=== PATIENT | female | born 2000 | race Hispanic/Latino ===

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

== ENCOUNTER 2022-12-09 21:23 | Emergency (ER) | payer OTHER, SELFPAY ==
--- OUTSIDE RECORDS SUMMARY | 2022-12-09 21:28 | XMS REPORT | Continuity of Care Document ---
:2000 Author Organization [facility] t Address [address] [facility] [address] [place] [address] Care Team Providers Name Role Phone STU CERVANTES Primary Care Physician Unavailable Bryant Naidu Attending Clinician Unavailable BARBARA ROSSI Attending Clinician Unavailable BARBARA ROSSI Attending Clinician Unavailable KATIE TINSLEY Attending Clinician Unavailable Katie Tinsley MD Attending Clinician Doctor Unassigned, [place] Attending Clinician Unavailable DIONICIO ANGEL Attending Clinician Unavailable Dionicio Funez Attending Clinician Rainer Rizo Attending Clinician Diane Bryant PA-C Attending Clinician DIANE BRYANT Attending Clinician Unavailable Bryant Naidu Admitting Clinician Unavailable Payers Payer Name Policy Type Policy Number Effective Date Expiration Date [facility] [id number] 2017 CHOICE MEDICAID 00:00:00 Problems Condition Condition Condition Status Onset Resolution Last Treating Co mments Source Name Details Category Date Date Treatment Clinician Date History of History of Disease Active U nivers heart heart 11-02 it[place] childhood childhood [facility] Maternal Maternal Disease Active Overview: Un natalia varicella, varicella, 11-02 Formattin ity of non-immune non-immune 00:00: g of this [place] 00 note Medical might be Branch different from the original. Address in Postpartu m Screening Screening Disease Active Uni vers for viral for viral 11-01 ity of disease disease 00:00: [place] [facility] Branch History of History of Disease Active U nivers anemia anemia 11-01 ity of 00:00: [place] 00 [facility] Primigravi Primigravi Disease Active U nivers da in da in 11-01 ity of first first 00:00: [place] trimester trimester 00 [facility] High risk High risk Disease Active Uni vers teen teen 11-01 [place] in first in first 00 Medica l trimester trimester Bran ch Supervisio Supervisio Disease Active U nivers n of high n of high 11-01 ity of risk risk 00:00: [place] 00 [facility] in first in first Branch trimester trimester Excessive Excessive Disease Active Uni vers menstruati menstruati 1-30 it y of on at on at 00:00: [place] puberty puberty 00 [facility] Depo-Prove Depo-Prove Disease Active U nivers ra ra 1-30 [place] of [place] cat[place] status caty status 00 Ok dical Branch History of History of Disease Active U nivers blood blood 1-30 [place] of transfusio transfus[place] [facility] Iron Iron Disease Active Univers deficiency deficiency 1-30 it y of anemia due [place] due [place] to chronic to chronic 00 Me dical blood loss blood loss Br anch Elevated Elevated Disease Active Unive rs hemoglobin hemoglobin 1-30 it y of A1c A1c 00:00: [place] 00 [facility] Branch Allergies, Adverse Reactions, Alerts Allergy Allergy Status Severity Reaction(s) Onset Inactive Treating Comm ents Source Name Type Date Date Clinician No Known DA Active U [facility] [place] No Known DA Active U [facility] Allergie 3-03 [facility] 00:00: [facility]osp[facility] 00 l [facility] NO KNOWN Drug Active Univers ALLERGIE Class ity of S [facility] Social History Social Habit Start Date Stop Date Quantity Comments Source ASSERTION 2019-09-10 University 00:00:00 [facility] Exposure to Not sure [facility] SARS-CoV-2 (event) [facility] Sexual orientation Univer sity of [facility] Alcohol intake 2022-11-26 2022-11-26 Current University 00:00:00 00:00:00 non-drinker of [facility] alcohol Branch (finding) History of Social 2019-11-02 2019-11-02 Univers ity of function 00:00:00 00:00:00 [facility] Tobacco use and 2017-03-31 2017-03-31 Smokeless Universit y of exposure 00:00:00 00:00:00 tobacco non-user [facility] Sex Assigned At 2000 2002 Universit y of 00:00:00 00:00:00 [facility] Smoking Status Start Date Stop Date Source Never smoked tobacco [facility] Medications Ordered Filled Start Stop Current Ordering Indication Dosage Frequency Signature Comments Components Source Medication Medication Date Date Medication? Clinician (SIG) Name Name meclizine No 25mg 25 mg, Unive rs (TRAVEL-EAS 11-27 Oral, ity of E 01:30: 01:39 ONCE, 1 [place] (MECLIZINE) 00 :00 dose, On [facility] ) tablet 25 Wed Branch mg 11/26/22 at 2030, KAILA meclizine Yes [id number] 25mg Take 1 U nivers 25 mg 9-27 tablet by ity of tablet 00:00: mouth [place] 00 every 6 Medical (six) Branch hours as needed for Dizziness or Nausea. proMETHazin Yes [id number] 25mg Take 1 Univers e 25 mg 9-27 tablet by ity of tablet 00:00: mouth [place] 00 every 6 Medical (six) Branch hours as needed for Nausea and Vomiting (N/V). ferrous Yes [id number] 325mg Take 1 Un nat[place] sulfate 325 9-10 tablet by ity of mg (65 mg 00:00: mouth 2 [place] iron) 00 (two) Medical tablet times Branch daily. ascorbic 2020-0 Yes [id number] 500mg Take 1 U nivers acid, 9-10 tablet by ity of vitamin C, 00:00: mouth 3 [place] 500 mg 00 (three) Medical tablet times Branch daily. ferrous 2020-0 Yes [id number] 325mg Take 1 Un [place] sulfate 325 9-10 tablet by ity of mg (65 mg 00:00: mouth 2 [place] iron) 00 (two) Medical tablet times Branch daily. ascorbic 2020-0 Yes [id number] 500mg Take 1 U nivers acid, 9-10 tablet by ity of vitamin C, 00:00: mouth 3 [place] 500 mg 00 (three) Medical tablet times Branch daily. ferrous 2020-0 Yes [id number] 325mg Take 1 Un [place] sulfate 325 9-10 tablet by ity of mg (65 mg 00:00: mouth 2 [place] iron) 00 (two) Medical tablet times Branch daily. ascorbic 2020-0 Yes [id number] 500mg Take 1 U nivers acid, 9-10 tablet by ity of vitamin C, 00:00: mouth 3 [place] 500 mg 00 (three) Medical tablet times Branch daily. ferrous 2020-0 Yes [id number] 325mg Take 1 Uni vers sulfate 325 9-10 tablet by ity of mg (65 mg 00:00: mouth 2 [place] iron) 00 (two) Medical tablet times Branch daily. ascorbic 2020-0 Yes [id number] 500mg Take 1 [place] acid, 9-10 tablet by ity of vitamin C, 00:00: mouth 3 [place] 500 mg 00 (three) Medical tablet times Branch daily. medroxyPROG 2020-0 2020- No 150mg 150 mg by [facility] 11-01 Intramuscu ity of (DEPO-PROVE 19:23: 00:00 lar route [place] RA) 150 33 :00 every 3 Medical mg/mL (three) Branch injection months. medroxyPROG 2020-0 2020- No 150mg 150 mg by [facility] 11-01 Intramuscu ity of (DEPO-PROVE 19:23: 00:00 lar route [place] RA) 150 33 :00 every 3 Medical mg/mL (three) Branch injection months. medroxyPROG 2020-0 2020- No 150mg 150 mg by [facility] 11-01 Intramuscu ity of (DEPO-PROVE 19:23: 00:00 lar route [place] RA) 150 33 :00 every 3 Medical mg/mL (three) Branch injection months. medroxyPROG 2020-0 2020- No 150mg 150 mg by [facility] Intr[facility] ity of (DEPO-PROVE 19:23: 00:00 lar route [place] RA) 150 33 :00 every 3 Medical mg/mL (three) Branch injection months. medroxyPROG 2020-0 2020- No 150mg 150 mg by [facility] Intramuscu ity of (DEPO-PROVE 19:23: 00:00 lar route [place] RA) 150 33 :00 every 3 Medical mg/mL (three) Branch injection months. medroxyPROG 2020-0 2020- No 150mg 150 mg by [facility] 11-01 Intramuscu ity of (DEPO-PROVE 19:23: 00:00 lar route [place] RA) 150 33 :00 every 3 Medical mg/mL (three) Branch injection months. medroxyPROG 2020-0 2020- No 150mg 150 mg by [facility] 11-01 Intramuscu ity of (DEPO-PROVE 19:23: 00:00 lar route [place] RA) 150 33 :00 every 3 Medical mg/mL (three) Branch injection months. ferrous 2020-0 2020- No 325mg Take 325 Univ ers sulfate 11-01 mg by ity of (IRON) 325 19:23: [...] No 325mg Take 325 Univ ers sulfate 9-02 09-02 mg by ity of (IRON) 325 [...] times Branch tablet daily with meals. Yes [id number] 1{packe Take 1 Univers vit 9-02 t} Packet by ity of 33-iron-fol 00:00: mouth [place] ic-dha 00 daily. Medical (SELECT-OB Branch + DHA) 29 mg iron-1 mg -250 mg combo pack Yes [id number] 1{packe Take 1 Univers vit 9-02 t} Packet by ity of 33-iron-fol 00:00: mouth [place] ic-dha 00 daily. Medical (SELECT-OB Branch + DHA) 29 mg iron-1 mg -250 mg combo pack Yes [id number] 1{packe Take 1 Univers vit 9-02 t} Packet by ity of 33-iron-fol 00:00: mouth [place] ic-dha 00 daily. Medical (SELECT-OB Branch + DHA) 29 mg iron-1 mg -250 mg combo pack Yes [id number] 1{packe Take 1 Univers vit 9-02 t} Packet by ity of 33-iron-fol 00:00: mouth [place] ic-dha 00 daily. Medical (SELECT-OB Branch + DHA) 29 mg iron-1 mg -250 mg combo pack Yes [id number] 1{packe Take 1 Univers vit 9-02 t} Packet by ity of 33-iron-fol 00:00: mouth [place] ic-dha 00 daily. Medical (SELECT-OB Branch + DHA) 29 mg iron-1 mg -250 mg combo pack 2019-0 Yes [id number] 1{packe Take 1 Univers vit 9-02 t} Packet by ity of 33-iron-fol 00:00: mouth [place] ic-dha 00 daily. Medical (SELECT-OB Branch + DHA) 29 mg iron-1 mg -250 mg combo pack 2019-0 Yes [id number] 1{packe Take 1 Univers vit 9-02 t} Packet by ity of 33-iron-fol 00:00: mouth [place] ic-dha 00 daily. Medical (SELECT-OB Branch + DHA) 29 mg iron-1 mg -250 mg combo pack Yes [id number] 1{packe Take 1 Univers vit 9-02 t} Packet by ity of 33-iron-fol 00:00: mouth [place] ic-dha 00 daily. Medical (SELECT-OB Branch + DHA) 29 mg iron-1 mg -250 mg combo pack 0 Yes [id number] 1{packe Take 1 Univers vit 9-02 t} Packet by ity of 33-iron-fol 00:00: mouth [place] ic-dha 00 daily. Medical (SELECT-OB Branch + DHA) 29 mg iron-1 mg -250 mg combo pack 0 Yes [id number] 1{packe Take 1 Univers vit 9-02 t} Packet by ity of 33-iron-fol 00:00: mouth [place] ic-dha 00 daily. Medical (SELECT-OB Branch + DHA) 29 mg iron-1 mg -250 mg combo pack 2019-0 Yes [id number] 1{packe Take 1 Univers vit 9-02 t} Packet by ity of 33-iron-fol 00:00: mouth [place] ic-dha 00 daily. Medical (SELECT-OB Branch + DHA) 29 mg iron-1 mg -250 mg combo pack proMETHazin 2020- No 25mg 25 mg, IV Univers e 8 08-06 Piggyback, ity of (PHENERGAN) 23:30: 23:30 [place]CE[place] 1 [place] 25 mg in 00 :00 dose, Reema Medica l NaCl 0.9% 8/6/20 at Branc h (NS) 50 mL 1830, 50 piggyback mL NaCl 0.9% 2020-0 2020- No 1000mL at 999 Uni vers (NS) bolus 8-06 08-07 mL/hr, ity of infusion 23:00: 00:02 1,000 mL, [place] as 1,000 mL 00 :00 IV Medical Infusion, Branch ONCE, 1 dose, Reema 10/06/19 at 1800, KAIL[place] NaCl 0.9% 2020-0 2020- No 1000mL at 999 Uni vers (NS) bolus 8-06 08-06 mL/hr, ity of infusion 22:30: 23:12 1,000 mL, [place] as 1,000 mL 00 :00 IV Medical Infusion, Branch ONCE, 1 dose, Re[place] 10/06/19 at 1730, [place]AIL[place] proMETHazin 2020-0 Yes [id number] 25mg Take 1 Univers e 25 mg 8-06 tablet by ity of tablet 00:00: mouth [place] 00 every 6 Medical (six) Branch hours as needed for Nausea and Vomiting (N/V). proMETHazin 2020-0 Yes [id number] 25mg Insert 1 Univers e 8-06 Suppositor ity of (PHENERGAN) 00:00: [place] 25 mg 00 rectum Medical suppository every 6 Branc h (six) hours as needed for Nausea and Vomiting (N/V). 2019-0 Yes [id number] 1{tbl} Take 1 Univers multivitami 8-06 tablet by ity of n ( 00:00: mouth [place] VITAMIN) 00 daily. Medical tablet Branch proMETHazin 2020-0 Yes [id number] 25mg Take 1 Univers e 25 mg 8-06 tablet by ity of tablet 00:00: mouth [place] 00 every 6 Medical (six) Branch hours as needed for Nausea and Vomiting (N/V). proMETHazin 2020-0 Yes [id number] 25mg Insert 1 Univers e 8-06 Suppositor ity of (PHENERGAN) 00:00: y [place] 25 mg 00 rectum Medical suppository every 6 Branc h (six) hours as needed for Nausea and Vomiting (N/V). 2020-0 Yes [id number] 1{tbl} Take 1 Univers multivitami 8-06 tablet by ity of n ( 00:00: mouth [place] VITAMIN) 00 daily. Medical tablet Branch proMETHazin 2019-2019- No [id number] 25mg Take 1 Univers e 25 mg 10-05 tablet by ity of tablet 00:00: 00:00 mouth [place] 00 :00 every 6 Medical (six) Branch hours as needed for Nausea and Vomiting (N/V). proMETHazin 2019-2019- No [id number] 25mg Insert 1 Univers e 10-05 Suppositor ity of (PHENERGAN) 00:00: 00:00 y into [place] 25 mg 00 :00 rectum Medical suppository every 6 Branc h (six) hours as needed for Nausea and Vomiting (N/V). 2019- No [id number] 1{tbl} Take 1 Univers multivitami 10-05 tablet by it y of n ( 00:00: 00:00 [place] VITAMIN) 00 :00 daily. Medical tablet Branch proMETHazin 2019- No [id number] 25mg Take 1 Univers e 25 mg 10-05 tablet by ity of tablet 00:00: 00:00 mouth [place] 00 :00 every 6 Medical (six) Branch hours as needed for Nausea and Vomiting (N/V). proMETHazin 2019-2019- No [id number] 25mg Insert 1 Univers e 10-05 Suppositor ity of (PHENERGAN) 00:00: 00:00 y into [place] 25 mg 00 :00 rectum Medical suppository every 6 Branc h (six) hours as needed for Nausea and Vomiting (N/V). 2019- No [id number] 1{tbl} Take 1 Univers multivitami 10-05 tablet by it y of n ( 00:00: 00:00 [place] VITAMIN) 00 :00 daily. Medical tablet Branch proMETHazin 2019- No [id number] 25mg Take 1 Univers e 25 mg 10-05 tablet by ity of tablet 00:00: 00:00 mouth [place] 00 :00 every 6 Medical (six) Branch hours as needed for Nausea and Vomiting (N/V). proMETHazin 2019-2019- No [id number] 25mg Insert 1 Univers e 10-05 Suppositor ity of (PHENERGAN) 00:00: 00:00 y into [place] 25 mg 00 :00 rectum Medical suppository every 6 Branc h (six) hours as needed for Nausea and Vomiting (N/V). No [id number] 1{tbl} Take 1 Univers multivitami 10-05 tablet by it y of n ( 00:00: 00:00 [place] VITAMIN) 00 :00 daily. Medical tablet Branch proMETHazin No [id number] 25mg Take 1 Univers e 25 mg 10-05 tablet by ity of tablet 00:00: 00:00 mouth [place] 00 :00 every 6 Medical (six) Branch hours as needed for Nausea and Vomiting (N/V). proMETHazin No [id number] 25mg Insert 1 Univers e 10-05 Suppositor ity of (PHENERGAN) 00:00: 00:00 y into [place] 25 mg 00 :00 rectum Medical suppository every 6 Branc h (six) hours as needed for Nausea and Vomiting (N/V). No [id number] 1{tbl} Take 1 Univers multivitami 10-05 tablet by it y of n ( 00:00: 00:00 [place] VITAMIN) 00 :00 daily. Medical tablet Branch proMETHazin No [id number] 25mg Take 1 Univers e 25 mg 10-05 tablet by ity of tablet 00:00: 00:00 mouth [place] 00 :00 every 6 Medical (six) Branch hours as needed for Nausea and Vomiting (N/V). proMETHazin 2019- No [id number] 25mg Insert 1 Univers e 10-05 Suppositor ity of (PHENERGAN) 00:00: 00:00 y into [place] 25 mg 00 :00 rectum Medical suppository every 6 Branc h (six) hours as needed for Nausea and Vomiting (N/V). No [id number] 1{tbl} Take 1 Univers multivitami 10-05 tablet by it y of n ( 00:00: 00:00 [place] VITAMIN) 00 :00 daily. Medical tablet Branch proMETHazin 2019- No [id number] 25mg Take 1 Univers e 25 mg 10-05 tablet by ity of tablet 00:00: 00:00 mouth [place] 00 :00 every 6 Medical (six) Branch hours as needed for Nausea and Vomiting (N/V). proMETHazin 2019- No [id number] 25mg Insert 1 Univers e 10-05 Suppositor ity of (PHENERGAN) 00:00: 00:00 y into [place] 25 mg 00 :00 rectum Medical suppository every 6 Branc h (six) hours as needed for Nausea and Vomiting (N/V). 2019- No [id number] 1{tbl} Take 1 Univers multivitami 10-05 tablet by it y of n ( 00:00: 00:00 [place] VITAMIN) 00 :00 daily. Medical tablet Branch proMETHazin 2019- No [id number] 25mg Take 1 Univers e 25 mg 10-05 tablet by ity of tablet 00:00: 00:00 mouth [place] 00 :00 every 6 Medical (six) Branch hours as needed for Nausea and Vomiting (N/V). proMETHazin 2019- No [id number] 25mg Insert 1 Univers e 10-05 Suppositor ity of (PHENERGAN) 00:00: 00:00 y into [place] 25 mg 00 :00 rectum Medical suppository every 6 Branc h (six) hours as needed for Nausea and Vomiting (N/V). 2019- No [id number] 1{tbl} Take 1 Univers multivitami 10-05 tablet by it y of n ( 00:00: 00:00 [place] VITAMIN) 00 :00 daily. Medical tablet Branch cephALEXin 2020- No [id number] 500mg Take 1 Univers (KEFLEX) 10-05- capsule by ity of 500 mg 00:00: 04:59 mouth 2 [place] capsule 00 :00 (two) Medical times Branch daily for 7 days. medroxyPROG Yes 150mg 150 mg by Univers ESTERone 10-09 Intramuscu ity o f (DEPO-PROVE 21:17: lar [...] Name Observation Time Observation Value Comments Source Heart rate 2022-11-27 01:00:00 89 /[facility] Medical [place] Respiratory rate 2022-11-27 01:00:00 16 /min [facility] Oxygen saturation in 2022-11-27 01:00:00 100 /min [facility] Arterial blood by [facility] Pulse oximetry Branch Systolic blood 2022-11-27 00:13:00 122 mm[Hg] Univer sity of pressure [place] [facility] Diastolic blood 2022-11-27 00:13:00 76 mm[Hg] Unive rsity of pressure [place] [facility] Body temperature 2022-11-27 00:13:00 37.11 Carmen Univ ersity of [place] [facility] Body height 2022-11-27 00:13:00 167.6 cm Universi ty of [place] [facility] Body weight 2022-11-27 00:13:00 58.514 kg Universi ty of [place] [facility] BMI 2022-11-27 00:13:00 20.82 kg/m2 Universi ty of [place] [facility] Systolic blood 2019-11-10 17:59:00 119 mm[Hg] Univer sity of pressure [place] [facility] Diastolic blood 2019-11-10 17:59:00 72 mm[Hg] Unive rsity of pressure [place] [facility] Heart rate 2019-11-10 17:59:00 100 /min Universi ty of [place] [facility] Body temperature 2019-11-10 17:59:00 37.28 Carmen Univ ersity of [place] [facility] Respiratory rate 2019-11-10 17:59:00 16 /min Univ ersity of [place] [facility] Body height 2019-11-10 17:59:00 167.6 cm Universi ty of [place] [facility] Body weight 2019-11-10 17:59:00 59.285 kg Universi ty of [place] [facility] BMI 2019-11-10 17:59:00 21.10 kg/m2 Universi ty of [place] [facility] Systolic blood 2019-11-10 17:59:00 119 mm[Hg] Univer sity of pressure [place] [facility] Diastolic blood 2019-11-10 17:59:00 72 mm[Hg] Unive rsity of pressure [place] [facility] Heart rate 2019-11-10 17:59:00 100 /min Universi ty of [place] [facility] Body temperature 2019-11-10 17:59:00 37.28 Carmen Univ ersity of [place] [facility] Respiratory rate 2019-11-10 17:59:00 16 /min Univ ersity of [place] [facility] Body height 2019-11-10 17:59:00 167.6 cm Universi ty of [place] [facility] Body weight 2019-11-10 17:59:00 59.285 kg Universi ty of [place] [facility] BMI 2019-11-10 17:59:00 21.10 kg/m2 Universi ty of [place] [facility] Systolic blood 2019-11-02 18:34:00 117 mm[Hg] Univer sity of pressure [place] [facility] Diastolic blood 2019-11-02 18:34:00 63 mm[Hg] Unive rsity of pressure [place] [facility] Heart rate 2019-11-02 18:34:00 73 /min Universi ty of [place] [facility] Body temperature 2019-11-02 18:34:00 36.11 Carmen Univ ersity of [place] [facility] Respiratory rate 2019-11-02 18:34:00 16 /min Univ ersity of [place] [facility] Body height 2019-11-02 18:34:00 167.6 cm Universi ty of [place] [facility] Body weight 2019-11-02 18:34:00 59.92 kg Universi ty of [place] [facility] BMI 2019-11-02 18:34:00 21.32 kg/m2 Universi ty of [place] [facility] Systolic blood 2019-11-02 18:34:00 117 mm[Hg] Univer sity of pressure [place] [facility] Diastolic blood 2019-11-02 18:34:00 63 mm[Hg] Unive rsity of pressure [place] [facility] Heart rate 2019-11-02 18:34:00 73 /min Universi ty of [place] [facility] Body temperature 2019-11-02 18:34:00 36.11 Carmen Univ ersity of [place] [facility] Respiratory rate 2019-11-02 18:34:00 16 /min Univ ersity of [place] [facility] Body height 2019-11-02 18:34:00 167.6 cm Universi ty of [place] [facility] Body weight 2019-11-02 18:34:00 59.92 kg Universi ty of [place] [facility] BMI 2019-11-02 18:34:00 21.32 kg/m2 Universi ty of [place] [facility] Systolic blood 2019-10-07 00:00:00 102 mm[Hg] Univer sity of pressure [place] [facility] Diastolic blood 2019-10-07 00:00:00 66 mm[Hg] Unive rsity of pressure [place] [facility] Heart rate 2019-10-07 00:00:00 95 /min Universi ty of [place] [facility] Respiratory rate 2019-10-07 00:00:00 16 /min Univ ersity of [facility] Branch Oxygen saturation in 2019-10-07 00:00:00 100 /min [facility] Arterial blood by [facility] Pulse oximetry Branch Body temperature 2019-10-06 22:17:00 37.28 Carmen [facility] Body weight 2019-10-06 22:17:00 61.689 kg [facility] Procedures Procedure Date / Time Performing Clinician Source Performed TEST, SERUM 2022-11-27 00:34:00 Chicho [facility] BASIC METABOLIC PANEL 2022-11-27 00:34:00 Chicho [facility] (NA, K, CL, CO2, [facility] GLUCOSE, BUN, CREATININE, CA) CBC WITH DIFF 2022-11-27 00:34:00 Chicho [facility] HB ABO GROUPING 2022-11-27 00:34:00 Chicho [facility] NOTICE OF PRIVACY 2022-11-27 00:04:00 Doctor Unassigned, No [facility] PRACTICES Name [facility] CONSENT/REFUSAL FOR 2022-11-27 00:02:34 [facility] Name [facility] [id number] 2020-05-21 00:00:00 [facility] [id number] 2020-05-21 00:00:00 [facility] AUTHORIZATION FOR 2019-12-15 05:01:00 Doctor Unassigned, No [facility] RELEASE OF PHI Name [facility] POCT URINALYSIS 2019-11-10 00:00:00 Dionicio [facility] URINE CULTURE 2019-11-02 19:48:00 Dionicio [facility] GC & CHLAMYDIA AMPLIFIED 2019-11-02 19:48:00 Diane Bryant [facility] TRICHOMONAS AMPLIFIED 2019-11-02 19:48:00 Diane Bryant [facility] RUBELLA SCREEN IGG 2019-11-02 19:45:00 Dionicio Angel [facility] VZV ANTIBODY SCREEN 2019-11-02 19:45:00 Dionicio Angel [facility] HEPATITIS B SURFACE 2019-11-02 19:45:00 Dionicio Angel [facility] ANTIGEN [facility] HB ABO GROUPING 2019-11-02 19:45:00 Dionicio [facility] HIV 1/2 AG-AB WITH 2019-11-02 19:45:00 Dionicio Angel [facility] REFLEX [facility] GALV ONLY - SYPHILIS 2019-11-02 19:45:00 Dionicio Angel [facility] IGG/IGM [facility] SARS-COV-2 IGG 2019-11-02 19:45:00 Dionicio Angel [facility] ASSIGNMENT OF BENEFITS 2019-11-02 18:09:06 Doctor Unassigned, No [facility] POCT TEST 2019-11-02 00:00:00 Dionicio Angel [facility] POCT URINALYSIS W/O 2019-11-02 00:00:00 Dionicio Angel [facility] SPECIFIC GRAVITY [facility] LIPASE 2019-10-06 22:26:00 Rainer Martinez [facility] COMP. METABOLIC PANEL 2019-10-06 22:26:00 Rainer Martinez [facility] ([id number]) [facility] TOTAL BETA HCG ASSAY 2019-10-06 22:26:00 Rainer Martinez [facility] CBC WITH DIFF 2019-10-06 22:26:00 Rainer Martinez [facility] URINALYSIS 2019-10-06 22:26:00 Rainer Martinez [facility] NOTICE OF PRIVACY 2019-10-06 22:12:54 Doctor Unassigned, No Univ [facility] CONSENT/REFUSAL FOR 2019-10-06 22:04:48 [facility] Encounters Start End Encounter Admission Attending Care Care Encounter Source Date/Time Date/Time Type Type Clinicians Facility Department ID 2020-12-28 Emergency [facility] [id number] [facility] [place] [facility] 2020-05-24 Inpatient Elysia, HCAWH HCAWH [id number] HCA 06:55:26 Ziad 52 [facility] 2020-05-16 Inpatient Elysia, HCAWH H[facility]WH [id number] HCA 23:19:09 Ziad 75 [facility] 2020-05-02 Inpatient Elysia, HCAWH H[facility]WH [id number] HCA 22:03:36 Ziad 24 [facility] 2022-12-09 2022-12-09 Outpatient R BARBARA ROSSI [facility] [id number] Univers 13:30:00 13:30:00 ENID BARBARA [facility] 2022-11-26 2022-11-26 Emergency X [facility] ERT [id number] Univers 19:18:00 20:42:00 KATIE [facility] 2022-11-26 2022-11-26 Emergency [facility] [id number] Univers 19:18:00 20:42:00 Katie DAI 350.1.13.10 ity of [place] 4.2.7.2.686 [facility] [phone] [facility] [address] Branch 2019-12-15 2019-12-15 Orders Doctor KE 1.2.840.114 [id number] Univers 00:00:00 00:00:00 Only Unassigned, MICHELLE 350.1.13.10 ity of [place] [facility] 4.2.7.2.686 [facility] [id number] [facility] 00[address] Branch 2019-12-15 2019-12-15 Orders Doctor KE 1.2.840.114 [id number] 00:00:00 00:00:00 Only Unassigned, MICHELLE 350.1.13.10 [place] [facility] 4.2.7.2.686 [id number] 009 2019-12-12 2019-12-12 Outpatient R STANLEY [facility] [id number] Univers 10:45:00 10:45:00 DIONICIO gross o f [facility] 2019-12-06 2019-12-06 Telephone [facility] [id number] Univers 00:00:00 00:00:00 Roshunda R CUSTOMER CONSULTANT 350.1.13.10 ity of REGIONAL 4.2.7.2.686 Adria as MATERNAL [id number] [facility] [address] [place] [address] 2019-12-06 2019-12-06 [facility] [id number] 00:00:00 00:00:00 Roshunda R CUSTOMER CONSULTANT 350.1.13.10 REGIONAL 4.2.7.2.686 MATERNAL [id number] & CHILD [address] [place] [address] 2019-11-30 2019-11-30 Outpatient R STANLEY [facility] [id number] Univers 13:00:00 13:00:00 ROSMUMTAZNDA ity o f [facility] 2019-11-30 2019-11-30 [facility] [id number] Univers 09:00:00 09:00:00 ELIAHUNDA ity o f [facility] 2019-11-17 2019-11-17 Outpatient P [facility] [id number] Univers 13:30:00 13:30:00 ity of [facility] 2019-11-10 2019-11-10 Routine [facility] 1.2.840.114 [id number] Univers 12:52:31 13:34:11 Roshunda R CUSTOMER CONSULTANT 350.1.13.10 ity of Visit REGIONAL 4.2.7.2.686 Adria as MATERNAL [id number] [facility] [address] [place] [address] 2019-11-10 2019-11-10 Routine [facility] 1.2.840.114 [id number] 15 12:52:31 13:34:11 Roshunda R CUSTOMER CONSULTANT 350.1.13.10 Visit REGIONAL 4.2.7.2.686 MATERNAL [id number] & CHILD [address] [place] [address] 2019-11-10 2019-11-10 Outpatient R STANLEY [facility] [id number] Univers 12:45:00 12:45:00 ROSHUNDA ity o f [facility] 2019-11-02 2019-11-02 [facility] 1.2.840.114 [id number] Univers 13:25:22 14:49:05 Roshunda R CUSTOMER CONSULTANT 350.1.13.10 ity of Visit REGIONAL 4.2.7.2.686 Adria as MATERNAL [id number] Med ical & CHILD 107 [facility] 2019-11-02 2019-11-02 [facility] 1.2.840.114 [id number] 13:25:22 14:49:05 Roshunda R CUSTOMER CONSULTANT 350.1.13.10 Visit REGIONAL 4.2.7.2.686 MATERNAL [id number] & CHILD 107 [facility] 2019-11-02 2019-11-02 Outpatient R STANLEY [facility] [id number] Univers 12:45:00 12:45:00 ROSHUNDA ity o f [facility] 2019-11-02 2019-11-02 Orders Doctor KE 1.2.840.114 [id number] Univers 00:00:00 00:00:00 Only Unassigned, MICHELLE 350.1.13.10 ity of [place] [facility] 4.2.7.2.686 Adria as [id number] [address] 2019-10-06 2019-10-06 [facility] 1.2.840.114 [id number] Univers 17:11:00 19:06:00 Rainer Dai 350.1.13.10 i ty of [place] 4.2.7.2.686 [place] [facility] [id number] [address] 2019-10-06 2019-10-06 Orders Doctor KE 1.2.840.114 [id number] Univers 00:00:00 00:00:00 Only Unassigned, MICHELLE 350.1.13.10 ity of [place] [facility] 4.2.7.2.686 Adria as [id number] [address] 2019-05-23 2019-05-23 [facility] 1.2.840.114 [id number] Univers 15:41:09 16:11:09 ne Visit Diane Kris 350.1.13.10 ity of [place] 4.2.7.2.686 Dev Hernandez [id number] [place] [address] [address] 2019-05-23 2019-05-23 Outpatient R GIOVANNATRISTIN [facility] [id number] Univers 15:45:00 15:45:00 DIANE ginny [facility] Results Test Description Test Time Test Comments Results Result Comments Source BASIC METABOLIC PANEL (NA, K, CL, CO2, GLUCOSE, BUN, 2022-10 01:10:44 CREATININE, CA) Test Item Value Reference Range Interpretation Comme nts NA (test code = 4969159508) 140 mmol/L 135-145 K (test code = 2121337360) 4.0 mmol/L 3.5-5.0 CL (test code = 5767626225) 108 mmol/L 98-108 CO2 TOTAL (test code = 25 mmol/L 23-31 1448339582) AGAP (test code = 1757189535) 7 2-16 BUN (test code = 0510856262) 10 mg/dL 7-23 GLUCOSE (test code = 2007599736) 90 mg/dL 70-110 CREATININE (test code = 0.66 mg/dL 0.50-1.04 7669648212) CALCIUM (test code = 6842881980) 9.3 mg/dL 8.6-10.6 eGFR (test code = 8256515320) 114.2 mL/min/1.73m2 EFE (test code = EFE) Association of Glomerular Filtration Rate (GFR) and Staging of Kidney Disease* + +--------- + ----+| GFR (mL/min/1.73 m2) ?| With Kidney Damage ?| ?Without Kidney Damage+ +--- + +| ?>90 ?| ?Stage one ?| ? Normal ?+ +-------- + -----+| ?60-89 ?| ?Stage two ?| ? Decreased GFR ? + +--------- + ----+| ?30-59 ?| ?Stage three ?| ? Stage three ? + +--------- + ----+| ?15-29 ?| ?Stage four ? | ? Stage four ?+ +-------- + -----+| ?<15 (or dialysis) ? ?| ?Stage five ? | ? Stage five ?+ +-------- + -----+ *Each stage assumes the associated GFR level [...] or urine or abnormalities in imaging tests). [facility] TEST, [id number] 01:09:49 Test Item Value Reference Range Interpretation Comments PREG SERUM (test code Negative = 2563610443) EFE (test code = EFE) Less than 10 IU/L. ?If low titer or ectopic is suspected, resubmit specimen in 48-72 hours. [facility] CenterCB WITH [id number] 00:58:05 Test Item Value Reference Range Interpretation Comments WBC (test code = 5.27 See_Comment [Automated 1190-2) message] The sy stem which generated this result transmitted reference range : 4.30 - 11.10 10*3/?L. The reference range was not used to interpret this result as normal/abnormal . RBC (test code = 5.05 See_Comment [Automated 469-8) message] The sy stem which generated this result transmitted reference range : 3.93 - 5.25 10*6/?L. The reference range was not used to interpret this result as normal/abnormal . HGB (test code = 9.9 g/dL 11.6-15.0 L 718-7) HCT (test code = 34.8 % 35.7-45.2 L 4544-3) MCV (test code = 68.9 fL 80.6-95.5 L 787-2) MCH (test code = 19.6 pg 25.9-32.8 L 785-6) MCHC (test code = 28.4 g/dL 31.6-35.1 L 786-4) RDW-SD (test code = 43.4 fL 39.0-49.9 58227-4) RDW-CV (test code = 17.9 % 12.0-15.5 H 788-0) PLT (test code = 336 See_Comment [Automated 777-3) message] The sy stem which generated this result transmitted reference range : 166 - 358 10*3/ ?L. The reference r eduardo was not used to interpret this result as normal/abnormal . MPV (test code = 10.8 fL 9.5-12.9 72999-7) NRBC/100 WBC (test 0.0 See_Comment [Automat ed code = 1004548743) message] The system which generated this result transmitted reference range : 0.0 - 10.0 /100 WBCs. The refer ence range was not u sed to interpret th is result as normal/abnormal . NRBC x10^3 (test code See_Comment [Auto mated = 5228342761) message] The s ystem which generated this result transmitted reference range : 10*3/?L. The reference range was not used to interpret this result as normal/abnormal . GRAN MAT (NEUT) % 49.5 % (test code = 770-8) IMM GRAN % (test code 0.00 % = 7719336629) LYMPH % (test code = 40.0 % 736-9) MONO % (test code = 7.8 % 5905-5) EOS % (test code = 2.1 % 713-8) BASO % (test code = 0.6 % 706-2) GRAN MAT x10^3(ANC) 2.61 10*3/uL 1.88-7.09 (test code = 1363476067) IMM GRAN x10^3 (test 0.00-0.06 code = 8704897308) LYMPH x10^3 (test code 2.11 10*3/uL 1.32-3.29 = 731-0) MONO x10^3 (test code 0.41 10*3/uL 0.33-0.92 = 742-7) EOS x10^3 (test code = 0.11 10*3/uL 0.03-0.39 711-2) BASO x10^3 (test code 0.03 10*3/uL 0.01-0.07 = 704-7) Lab Interpretation Abnormal (test code = 13629-0) [facility] Center[facility] and Screen - ONCE [id number] 00:53:00 Test Item Value Reference Range Interpretation Comments ABO & RH (test code = 20) O Positive IAT (test code = 1185) Negative [facility] THIRD [id number] 18:24:00 Test Item Value Reference Range Interpretation Comments PLACENTA THIRD TRIMESTER (test code = PLACIII) RUN DATE: 05/23/20 [facility] PAGE 1 RUN TIME: 948 Specimen Inquiry RUN USER: INTERFACE BRENNAN ENT: JAMEEL CASTILLO LOC: JAELYNKARL U #: [id number] AGE/SX: 20/F ROOM: [facility] RE05/20/20[facility] DR: Bryant Naidu MD : 02 BED: A DIS: 05/22/20 STATUS: DIS IN TLOC: SPEC #: [id number] RECD: 05/21/20 STATUS: APOLINAR RAYGOZA #: [id number] NELLIE: 05/21/20- SUBM DR: Bryant Naidu MD ENTERED: 05/21/20 SP TYPE: PLACIII OTHR DR: Carlton Ramirez MD ORDERED: LEVEL V SURGICA CODES: ZL0210 - PLACENTA, NOS COPIES TO: Bryant Naidu MD [address] [place] [address] Carlton Ramirez MD [address], [address] [place], [place] [id number] [email or web address] PROCEDURES: LEVEL V SURGICA (Incomplete) TISSUES: PLACENTA, NOS - PLACENTA CLINICAL HISTORY 20 year old, 38.2 weeks, vaginal delivery, PROM (leonarda) FINAL DIAGNOSIS Placenta, 38.2 weeks gestational age, vaginal delivery: - third trimester placenta, 465 gms (40th percentile) - accelerated villous maturation - meconium macrophages within membranes - trivascular umbilical cord and membranes free of inflammation CPT: 28743 [facility] GROSS DESCRIPTION The specimen was received in a container, labeled with the patient's name, unit number and designated "placenta". The following attributes are observed: Cord insertion: 5 cm from margin Cord length: 35 cm CONTINUED ON NEXT PAGE RUN DATE: 05/23/20 [facility] PAGE 2 RUN TIME: 948 Specimen Inquiry RUN USER: INTERFACE SPEC #: [id number] PATIENT: JAMEEL CASTILLO #[id number] (Continued) ------- GROSS DESCRIPTION (Continued) Number of vessels: 3 Cord color: St-white Other cord findings: None surface findings: Blue-purple, wrinkled, glistening Vasculature: Unremarkable vasculature Membranes rupture site: 5 cm to margin Membrane color: St-pink Other membrane findings: Semi-translucent The trimmed placental weight: 465 gm Disk measurement: 17 x 15 x 4 cm in greatest dimension Accessory lobes: None Maternal surface: Lobulated and focally disrupted, but complete Parenchyma: Red-brown and spongy Parenchyma lesions: None Cassettes: A1 through A4 akila 05/21/20 ---- Signed Katherine Odonnell MD 05/22/20 1824 END OF REPORT RUBELLA [id number] 17:06:00 Test Item Value Reference Range Interpretation Comments RUBELLA SCREEN 18.3 IUnit/ml Results >10. 0IUnits/ml (test code = are considered positive RUBSC) inaccordance wi th the CLSI guidelines and based on the WH [employer] S tandard for Anti-Rubell a serum as anindicator of immune status and a br eakpoint to detect mostseropositiv e persons. AG HEPATITIS B [id number] 13:32:00 Test Item Value Reference Range Interpretation Comments AG HEPATITIS B SURFACE (test code NONREACTIVE NONREACTIVE = HBSAG) IS CONSENT FORM SIGNED FOR HIV TESTING? YAB HEPATITIS C [id number] 13:32:00 Test Item Value Reference Range Interpretation Comments AB HEPATITIS C (test code = NONREACTIVE NONREACTIVE HCVAB) SIGNAL TO CUTOFF (test code = 0.03 <0.80 N CUTOFF) IS CONSENT FORM SIGNED FOR HIV TESTING? YAB [id number] 13:32:00 Test Item Value Reference Range Interpretation Comments AB TREPONEMA (test code = TREPAB) NONREACTIVE NONREACTIVE IS CONSENT FORM SIGNED FOR HIV TESTING? YAB HIV 1 13:32:00 Test Item Value Reference Range Interpretation Comments AB HIV 1 2 (test NONREACTIVE NONREACTIVE [facility] by [facility] code = BTY90JG) 4th Gen HIV Ag/Ab Combo Screen IS CONSENT FORM SIGNED FOR HIV TESTING? YAB HEPATITIS C [id number] 12:53:00 Test Item Value Reference Range Interpretation Comments AB HEPATITIS C (test code = HCVAB) NONREACTIVE SIGNAL TO CUTOFF (test code = CUTOFF) <0.80 IS CONSENT FORM SIGNED FOR HIV TESTING? YAB [id number] 12:53:00 Test Item Value Reference Range Interpretation Comments AB TREPONEMA (test code = TREPAB) NONREACTIVE NONREACTIVE IS CONSENT FORM SIGNED FOR HIV TESTING? YAB HIV 1 12:53:00 Test Item Value Reference Range Interpretation Comments AB HIV 1 2 (test code = ICP41IV) NONREACTIVE IS CONSENT FORM SIGNED FOR HIV TESTING? YAG HEPATITIS B [id number] 12:53:00 Test Item Value Reference Range Interpretation Comments AG HEPATITIS B SURFACE (test code NONREACTIVE NONREACTIVE = HBSAG) IS CONSENT FORM SIGNED FOR HIV TESTING? YCOVID 19 Asymptomatic IH [id number] 12:51:00 Test Item Value Reference Range Interpretation Comments COVID 19 NEGATIVE NEGATIVE This test has b een Asymptomatic IH AG authorize d only for the (test code = detection ofpro teins from COVNONPUIAG) SARS-CoV-2, not for any other viruses orpathogens. Ne gative results should be treated as presumptive andconfirmed [...] and/o r diagnosis of CO VID-19 under Dnrhnjg58 4(b)(1) of the Act, 21 U.S .C. 360bbb-3(b)(1), unless theauthorizatio n is terminated or r evoked sooner. CBC W/AUTO [id number] 12:13:00 Test Item Value Reference Range Interpretation [...] NORMAL NORMAL code = PLTMR) RUPTURE OF [id number] 12:03:00 Test Item Value Reference Range Interpretation Comments RUPTURE OF MEMBRANES (test code = RUPTURED ROM) UA RFLX MICR CULT IF [id number] 04:13:00 Test Item Value Reference Range Interpretation [...] culture: Suprapubic PainSpecimen Description: CLEAN CATCHCBC W/AUTO [id number] 23:41:00 Test Item Value Reference Range Interpretation [...] code = PLTMR) POCT URINALYSIS W SPECIFIC [id number] 18:01:00 Test Item Value Reference Range Interpretation [...] POCT U APPEAR (test code = 3267) [facility] CenterURINE [id number] 12:19:00 Test Item Value Reference Range Interpretation Comments URINE CULTURE (test 10,000 - 100,000 CFU/mL code = 630-4) mixed aerobic organisms - suggests endogenous microbial contamination EFE (test code = <50,000 CFU/mL EFE) [facility] CenterGC & CHLAMYDIA AMPLIFIED [id number] 18:41:00 Test Item Value Reference Range Interpretation Comments C. trachomatis Nucleic Negative Negative Acid (test code = 16305-1) N. gonorrhoeae Nucleic Negative Negative Acid (test code = 16364-1) EFE (test code = EFE) Reliable results [...] NAAT. Lab Interpretation Normal (test code = 65655-1) [facility] CenterTRICHOMONAS AMPLIFIED [id number] 18:36:00 Test Item Value Reference Range Interpretation Comments Trichomonas Nucleic Negative Negative Acid (test code = 52437-1) EFE (test code = EFE) Reliable results [...] clinician. Lab Interpretation Normal (test code = 10428-3) [facility] CenterRUBELLA SCREEN (ALEJANDRO) [id number] 17:32:00 Test Item Value Reference Range Interpretation Comments Rubella screen IgG Positive Negative (test code = 7925670491) EFE (test code = EFE) Positive - Indicates the patient was exposed to Rubella through infection or vaccination.Negative - Indicates the patient could be susceptible to Rubella infection.Equivocal - A second specimen should be sent. [facility] CenterVZV ANTIBODY [id number] 17:32:00 Test Item Value Reference Range Interpretation Comments VZV IgG antibody Negative Negative (test code = 68000-1) EFE (test code = EFE) Positive - Indicates the patient was exposed to VZV through infection or vaccination.Negative - Indicates the patient could be susceptible to VZV infection.Equivocal - A second specimen should be sent for testing. [facility] CenterGAL ONLY - SYPHILIS [id number] 16:34:00 Test Item Value Reference Range Interpretation Comments Syphilis IgG/IgM (test Non-reactive Non-reactive code = 45376-5) EFE (test code = EFE) Non-reactive - No serologic evidence of T. pallidum infection. Cannot exclude incubating or early syphilis. Submit a second specimen in 2-4 weeks if syphilis is clinically suspected. Equivocal - Further testing to follow. Reactive - Further testing to follow. Lab Interpretation (test Normal code = 78460-1) [facility] CenterSARS-COV-2 [id number] 06:44:00 Test Item Value Reference Range Interpretation Comments CoV-2 IgG (test code Negative Negative Negativ e result = 95431-1) does not rule o ut acute SARS-CoV- 2 infection. Clinical correlation as well as molecul ar diagnostic test are recommended to rule out acu te infection if clinically indicated. EFE (test code = EFE) This test has been approved by FDA for emergency use.This test has been approved by FDA for emergency use. Lab Interpretation Normal (test code = 84233-1) [facility] CenterHI 1/2 AG-AB WITH [id number] 06:13:00 Test Item Value Reference Range Interpretation Comments HIV Negative Negative Semi-quantitative (test code = 96717-8) EFE (test code = Non-reactive for HIV-1 EFE) antigen and HIV-1/HIV-2 antibodies. ?No laboratory evidence of HIV infection. ?Repeat in 2-4 weeks if acute HIV infection is suspected. [facility] CenterHEPATITIS B SURFACE [id number] 04:29:00 Test Item Value Reference Range Interpretation Comments HBsAg Semi-Quantitative (test code = Negative Negative 5195-3) [facility] CenterPRENATAL WORKUP, BLOOD [id number] 04:26:11 Test Item Value Reference Range Interpretation Comments ABO & RH (test code O POSITIVE Performe d at [facility] = 20) Laboratory Serv [facility] [address] [facility] [address]Cgbs Free: [phone] A No. [id number] IAT (test code = Negative Performed a t [facility] 1185) Laboratory Serv [facility] [address]Uvub Free: [phone] A No. [id number] [facility]/O SPECIFIC [id number] 18:27:00 Test Item Value Reference Range Interpretation [...] code = 3257) neg Negative - Negative [facility] CenterPOCT URINALYSIS W/O SPECIFIC [id number] 18:27:00 Test Item Value Reference Range Interpretation [...] code = 3257) neg Negative - Negative [facility] CenterPOCT UR[facility]ALYS[facility] W/O SPECIFIC [id number] 18:27:00 Test Item Value Reference Range Interpretation [...] code = 3257) neg Negative - Negative [facility] URINALYSIS W/O SPECIFIC [id number] 18:27:00 Test Item Value Reference Range Interpretation [...] code = 3257) neg Negative - Negative [facility] URINALYSIS W/O SPECIFIC [id number] 18:27:00 Test Item Value Reference Range Interpretation [...] code = 3257) neg Negative - Negative [facility]/O SPECIFIC [id number] 18:27:00 Test Item Value Reference Range Interpretation [...] code = 3257) neg Negative - Negative [facility]/O SPECIFIC [id number] 18:27:00 Test Item Value Reference Range Interpretation [...] code = 3257) neg Negative - Negative [facility] [id number] 18:26:00 Test Item Value Reference Range Interpretation Comments POCT PREG (test code = 1605) Positive On board controls acceptable with C No Line (test code = 3574) POCT PREG LOT # (test code = 3575) POCT PREG TEST DATE (test code = 3576) [facility] [id number] 18:26:00 Test Item Value Reference Range Interpretation Comments POCT PREG (test code = 1605) Positive On board controls acceptable with C No Line (test code = 3574) POCT PREG LOT # (test code = 3575) POCT PREG TEST DATE (test code = 3576) [facility] [id number] 18:26:00 Test Item Value Reference Range Interpretation Comments POCT PREG (test code = 1605) Positive On board controls acceptable with C No Line (test code = 3574) POCT PREG LOT # (test code = 3575) POCT PREG TEST DATE (test code = 3576) [facility] [id number] 18:26:00 Test Item Value Reference Range Interpretation Comments POCT PREG (test code = 1605) Positive On board controls acceptable with C No Line (test code = 3574) POCT PREG LOT # (test code = 3575) POCT PREG TEST DATE (test code = 3576) [facility] [id number] 18:26:00 Test Item Value Reference Range Interpretation Comments POCT PREG (test code = 1605) Positive On board controls acceptable with C No Line (test code = 3574) POCT PREG LOT # (test code = 3575) POCT PREG TEST DATE (test code = 3576) [facility] [id number] 18:26:00 Test Item Value Reference Range Interpretation Comments POCT PREG (test code = 1605) Positive On board controls acceptable with C No Line (test code = 3574) POCT PREG LOT # (test code = 3575) POCT PREG TEST DATE (test code = 3576) [facility] CenterPOAZ [id number] 18:26:00 Test Item Value Reference Range Interpretation Comments POCT PREG (test code = 1605) Positive On board controls acceptable with C No Line (test code = 3574) POCT PREG LOT # (test code = 3575) POCT PREG TEST DATE (test code = 3576) [facility] BHCG (QUANTITATIVE)2019-10-06 23:36:00 Test Item Value Reference Range Interpretation Comments BETA HCG (test See_Comment [Automated m essage] code = The system whic h 7883985572) generated this result transmit paula reference range : Non- fe male and male patien ts: <5 mIU/mL. The reference range was not used to interpret this result as normal/abnormal . EFE (test code Gestational Age ? ? = EFE) ?Range (mIU/mL) 1-10 ?Weeks ?21-61359442-84 Weeks ?23583-78951365-27 Weeks ?6673-81448767-02 Weeks ?2249-153343 Biotin has been reported to cause a negative bias, interpret results relative to patient's use of biotin. [facility]. METABOLIC PANEL (93072)2019-10-06 22:52:00 Test Item Value Reference Range Interpretation Comments NA (test code = 134 mmol/L 135-145 L 1193324740) K (test code = 3.8 mmol/L 3.5-5 0201977402) CL (test code = 104 mmol/L 98-108 6653543532) CO2 TOTAL (test code = 19 mmol/L 23-31 L 1624207875) AGAP (test code = 2-16 0245587780) BUN (test code = 9 mg/dL 7-23 2949941445) GLUCOSE (test code = 90 mg/dL 70-110 5309203860) CREATININE (test code = 0.54 mg/dL 0.5-1.04 9120672291) TOTAL BILI (test code = 0.4 mg/dL 0.1-1.8 9451439358) CALCIUM (test code = 9.5 mg/dL 8.6-10.6 7156147340) T PROTEIN (test code = 8.7 g/dL 6.3-8.2 H 0533868215) ALBUMIN (test code = 4.6 g/dL 3.5-5 5417454480) ALK PHOS (test code = 66 U/L 34-122 8863106170) ALTv (test code = 12 U/L 5-35 1742-6) AST(SGOT) (test code = 25 U/L 13-40 1878388233) EFE (test code = EFE) Association of [...] tests). Lab Interpretation Abnormal (test code = 10558-6) [facility] CenterLipase [id number] 22:52:00 Test Item Value Reference Range Interpretation Comments LIPASE (test code = 5286448883) 157 U/L 0-220 Lab Interpretation (test code = Normal 63407-8) [facility] CenterUrinalysis2020-08-06 22:48:00 Test Item Value Reference Range Interpretation Comments APPEARANCE (test code = Hazy Clear A 7970604431) COLOR (test code = Yellow Yellow 5948972606) PH (test code = 4.8-8.0 1972233563) SP GRAVITY (test code = 1.003-1.030 1514522954) GLU U QUAL (test code = Normal Normal 3667620701) BLOOD (test code = Negative Negative [id number]) KETONES (test code = 80 mg/dL Negative A 7472203728) PROTEIN (test code = Negative Negative 2887-8) UROBILIN (test code = Normal Normal 6266950747) BILIRUBIN (test code = Negative Negative 8722709192) NITRITE (test code = Negative Negative 9633452752) LEUK IRMA (test code = 25/uL Negative A 3112083026) RBC/HPF (test code = See_Comment [Autom ated message] 4705182970) The system rumr: turn off the lights generated this result transmitted ref erence range: 0 - 3 HP F. The reference range was not used to int erpret this result as normal/abnormal . WBC/HPF (test code = See_Comment [Autom ated message] 4718182209) The system rumr: turn off the lights generated this result transmitted ref erence range: 0 - 5 HP F. The reference range was not used to int erpret this result as normal/abnormal . BACTERIA (test code = Many Negative A 4301554102) MUCOUS (test code = Marked Negative LPF A 7827637072) SQ EPITH (test code = HPF 2193612252) Lab Interpretation (test Abnormal code = 56508-0) [facility] [id number] 22:33:00 Test Item Value Reference Range Interpretation [...] RDW-SD (test code = 45.6 fL 38.5-49 00118-1) RDW-CV (test code = 20.9 % 11.5-14 H 788-0) PLT (test code = See_Comment H [Automated 777-3) message] The sy stem which generated this result transmitted reference range : 135 - 361 10*3/ ?L. The reference r eduardo was not used to interpret this result as normal/abnormal . MPV (test code = 10.2 fL 9.4-13.3 73544-6) NRBC/100 WBC (test See_Comment [Automat ed code = 3306667023) message] The system which generated this result transmitted reference range : 0.0 - 10.0 /100 WBCs. The refer ence range was not u sed to interpret th is result as normal/abnormal . NRBC x10^3 (test code <0.01 See_Comment [Auto mated = 5281397426) message] The s ystem which generated this result transmitted reference range : 10*3/?L. The reference range was not used to interpret this result as normal/abnormal . GRAN MAT (NEUT) % 71.3 % (test code = 770-8) IMM GRAN % (test code 0.20 % = 2166727946) LYMPH % (test code = 20.7 % 736-9) MONO % (test code = 7.1 % 5905-5) EOS % (test code = 0.1 % 713-8) BASO % (test code = 0.6 % 706-2) GRAN MAT x10^3(ANC) 5.89 10*3/uL 1.5-10.3 (test code = 9390534352) IMM GRAN x10^3 (test <0.03 0-0.06 code = 9377174275) LYMPH x10^3 (test code 1.71 10*3/uL 0.7-7.4 = 731-0) MONO x10^3 (test code 0.59 10*3/uL 0-0.5 H = 742-7) EOS x10^3 (test code = <0.03 0-0.4 711-2) BASO x10^3 (test code 0.05 10*3/uL 0-0.1 = 704-7) Lab Interpretation Abnormal (test code = 70923-6) [facility]
--- NOTE | 2022-12-09 23:45 | ER ---
Nurse's Notes [facility] Name: Bushra Brewer Age: 22 yrs Sex: Female : 2000 Arrival Date: 12/09/2022 Time: 21:23 Bed 17 Private MD: Diagnosis: Displaced fracture of distal phalanx of left lesser toe(s), initial encounter for closed fracture Presentation: 12/09 21:31 Chief complaint: Patient states: pain to pinky toe on left foot. Pt states that last cm10 night she dropped a glass bottle on her foot. Pt reports pain with ambulation. Coronavirus screen: Vaccine status: Patient reports being unvaccinated. Client denies travel out of the [place] in the last 14 days. Ebola Screen: Patient denies travel to an Ebola-affected area in the 21 days before illness onset. No symptoms or risks identified at this time. Initial Sepsis Screen: Does the patient meet any 2 criteria? No. Patient's initial sepsis screen is negative. Does the patient have a suspected source of infection? No. Patient's initial sepsis screen is negative. Risk Assessment: Do you want to hurt yourself or someone else? Patient reports no desire to harm self or others. Onset of symptoms was December 09, 2022. 21:31 Method Of Arrival: Ambulatory cm10 21:31 Acuity: RACHELLE 4 cm10 Historical: - Allergies: 21:32 No Known Allergies; cm10 - PMHx: 21:32 HEAVY MENSTRATION; Heart Murmur; blood transfusion; Anemia; cm10 - PSHx: 21:32 None; cm10 - Immunization history:: Adult Immunizations unknown. - Social history:: Smoking status: Reported history of juuling and/or vaping. Screenin:32 [facility] ED Fall Risk Assessment (Adult) History of falling in the last 3 months, jb4 including since admission No falls in past 3 months (0 pts) Confusion or Disorientation No (0 pts) Score/Fall Risk Level 0 - 2 = Low Risk Oriented to surroundings, Maintained a safe environment. Abuse screen: Denies threats or abuse. Nutritional screening: No deficits noted. Tuberculosis screening: No symptoms or risk factors identified. Assessment: 22:32 General: Appears in no apparent distress. comfortable, Behavior is calm, cooperative, jb4 appropriate for age. Pain: Complains of pain in left fifth toe Pain does not radiate. Pain currently is 5 out of 10 on a pain scale. Neuro: Level of Consciousness is awake, alert, obeys commands, Oriented to person, place, time, situation. Cardiovascular: Patient's skin is warm and dry. Respiratory: Airway is patent Respiratory effort is even, unlabored, Respiratory pattern is regular, symmetrical. GI: No signs and/or symptoms were reported involving the gastrointestinal system. : No signs and/or symptoms were reported regarding the genitourinary system. EENT: No signs and/or symptoms were reported regarding the EENT system. Derm: Skin is intact, Skin is pink, warm \T\ dry. Musculoskeletal: Circulation, motion, and sensation intact. Range of motion: intact in all extremities. 23:38 Reassessment: Patient appears in no apparent distress at this time. Patient and/or jb4 family updated on plan of care and expected duration. Pain level reassessed. Patient is alert, oriented x 3, equal unlabored respirations, skin warm/dry/pink. Vital Signs: 21:31 BP 116 / 67; Pulse 95; Resp 16 S; Temp 98.2(TE); Pulse Ox 100% on R/A; Weight 59.87 kg; cm10 Height 5 ft. 7 in. ; Pain 8/10; 21:31 Body Mass Index 20.67 (59.87 kg, 170.18 cm) cm10 21:31 Pain Scale: Adult cm10 ED Course: 21:27 Patient arrived in ED. gm2 21:29 Patrizia Rodriguez FNP-C is [facility]. kb 21:29 Maximo Delgado MD is Attending Physician. kb 21:32 Triage completed. cm10 21:33 Arm band placed on Patient placed in an exam room, on a stretcher. cm10 22:32 Herbert Pulliam, RN is Primary Nurse. jb4 22:32 Patient has correct armband on for positive identification. Bed in low position. Call jb4 light in reach. Side rails up X 1. 22:37 Foot Left 3 View XRAY In Process Unspecified. EDMS 23:57 No provider procedures requiring assistance completed. Patient did not have IV access jb4 during this emergency room visit. Administered Medications: No medications were administered Medication: 22:32 VIS not applicable for this client. jb4 Outcome: 23:44 Discharge ordered by . kb 23:57 Discharged to home ambulatory, with friend, miguel angel 23:57 Condition: stable 23:57 Discharge instructions given to patient, Instructed on discharge instructions, follow up and referral plans. Demonstrated understanding of instructions, follow-up care, 23:58 Patient left the ED. jb4 Signatures: Dispatcher [employer] EDMS Patrizia Rodriguez, CRUDE TESTER-C MARY-Herbert Thorpe RN RN jb4 Silvia Ellis RN RN cm10 Abbi Knox [facility]
--- NOTE | 2022-12-09 23:45 | EDPHYS ---
Physician Documentation [facility] Name: Bushra Brewer Age: 22 yrs Sex: Female : 2000 Arrival Date: 12/09/2022 Time: 21:23 Bed 17 Private MD: ED Physician Maximo Delgado HPI: 12/09 22:55 This 22 yrs old Female presents to ER via Ambulatory with complaints of Foot kb Injury, Foot Pain. 22:55 The patient presents with a contusion, pain, swelling, tenderness. The complaints kb affect the left fifth toe. Context: The problem was sustained at home, resulted from a crush injury, full liquor bottle, the patient can fully bear weight, the patient is able to ambulate. Onset: The symptoms/episode began/occurred last night. Modifying factors: The symptoms are alleviated by nothing. the symptoms are aggravated by movement. Associated signs and symptoms: Pertinent positives: swelling, Pertinent negatives calf tenderness, fever, nausea, numbness, rash, tingling, vomiting, warmth, weakness. Treatment prior to arrival includes: no previous treatment. Severity of symptoms: At their worst the symptoms were moderate, in the emergency department the symptoms are unchanged. The patient has not experienced similar symptoms in the past. The patient has not recently seen a physician. Historical: - Allergies: 21:32 No Known Allergies; cm10 - PMHx: 21:32 HEAVY MENSTRATION; Heart Murmur; blood transfusion; Anemia; cm10 - PSHx: 21:32 None; cm10 - Immunization history:: Adult Immunizations unknown. - Social history:: Smoking status: Reported history of juuling and/or vaping. ROS: 22:55 Constitutional: Negative for fever, chills, and weight loss, kb 22:55 MS/extremity: Positive for ecchymosis, pain, swelling, tenderness, of the left fifth toe, 22:55 All other systems are negative, Exam: 22:55 Constitutional: This is a well developed, well nourished patient who is awake, alert, kb and in no acute distress. Head/Face: Normocephalic, atraumatic. Cardiovascular: Regular rate Respiratory: Respirations even and unlabored. No increased work of breathing. Talking in full sentences Skin: Warm, dry with normal turgor. Normal color. Neuro: Awake and alert, GCS 15, oriented to person, place, time, and situation. Moves all extremities. Normal gait. 22:55 Musculoskeletal/extremity: Extremities: grossly normal except: noted in the left fifth toe: contusion, ecchymosis, pain, swelling, tenderness, ROM: limited active range of motion due to pain, Circulation is intact in all extremities. Sensation intact. Weight bearing: able to fully bear weight, Vital Signs: 21:31 BP 116 / 67; Pulse 95; Resp 16 S; Temp 98.2(TE); Pulse Ox 100% on R/A; Weight 59.87 kg; cm10 Height 5 ft. 7 in. ; Pain 8/10; 21:31 Body Mass Index 20.67 (59.87 kg, 170.18 cm) cm10 21:31 Pain Scale: Adult cm10 MDM: 21:30 Patient medically screened. kb 22:55 Differential diagnosis: dislocation, closed fracture, contusion. Data reviewed: vital kb signs, nurses notes. Counseling: I had a detailed discussion with the patient and/or guardian regarding the historical points, exam findings, and any diagnostic results supporting the discharge/admit diagnosis, radiology results, the need for outpatient follow up, a family practitioner, to return to the emergency department if symptoms worsen or persist or if there are any questions or concerns that arise at home. 12/09 21:43 Order name: Foot Left 3 View XRAY kb Administered Medications: No medications were administered Disposition Summary: 12/09/22 23:44 Discharge Ordered Notes: Location: Home kb Condition: Stable kb Diagnosis - Displaced fracture of distal phalanx of left lesser toe(s), initial encounter for kb closed fracture Followup: kb - With: Emergency Department - When: As needed - Reason: Worsening of condition Followup: kb - With: Private Physician - When: 2 - 3 days - Reason: Recheck today's complaints, Continuance of care, Re-evaluation by your physician Discharge Instructions: - Discharge Summary Sheet kb - Toe Fracture, [id number] kb Forms: - Medication Reconciliation Form kb - Thank You Letter kb - Antibiotic Education kb - Prescription Opioid Use kb - Patient Portal Instructions kb - Leadership Thank You Letter kb Signatures: Dispatcher [employer] Patrizia Delacruz, CHARLEYC MARY-Silvia Castro, RN RN cm10
[2022-12-10 02:06] VITALS: BP 116/67; TEMP 98.2; O2SAT 100
--- NOTE | 2022-12-10 11:03 | RAD REPORT ---
EXAM DESCRIPTION: RAD - Foot Left 3 View - 12/09/2022 10:35 pm CLINICAL HISTORY: 22 years Female, PAIN COMPARISON: None. FINDINGS: 3 views of the left foot. There is a mildly comminuted fracture involving the fifth digit distal phalanx without significant displacement. There is mild soft tissue edema. No radiopaque forei gn body. IMPRESSION: Nondisplaced fracture involving the fifth toe distal phalanx. Electronically signed by: Fernanda Hinkle MD 12/09/2022 10:46 PM CDT Due to temporary technical issues with the PACS/Fluency reporting system, reports are being signed by the in house radiologist without review as a courtesy to ensure prompt reporting. The interpreting r adiologist is fully responsible for the content of the report.
== END 2022-12-09 23:58 | disposition home or self-care (01) ==
LOC: ER 21:23
DX: S92.532A Displaced fracture of distal phalanx of left lesser toe(s), initial encounter for closed fracture (principal)
CPT/HCPCS: 99282

== ENCOUNTER → 2023-04-20 | Emergency (ER) | payer SELFPAY ==
[~2023-04-20] MED LIST: ACETAMINOPHEN 500 MG TAB ONE; DIPHENHYDRAMINE 25 MG TAB/CAP ONE; ESTROGENS,CONJ 25 MG IV ONE; NA CHLORIDE 0.9% 1,000 ML ONE; NA CHLORIDE 0.9% 250 ML ONE; ONDANSETRON 4 MG/2 ML VIAL ONE; POTASSIUM 25 MEQ EFFERV TAB ONE
--- OUTSIDE RECORDS SUMMARY | 2023-04-20 00:10 | XMS REPORT | Continuity of Care Document ---
Author Name Unknown Address [address] [facility] [address] [place] [address] [facility] thconnect Address [address] [facility] [address] [place] [address] Care Team Providers Care Macerator Operator Name Role Phone STU CERVANTES Primary Care Physician Unavaila Bryant Bello Attending Clinician Unavailable BO RODRIGUEZ Attending Clinician Unavailable Bo Haney Attending Clinician [phone] KEVIN REYNA Attending Clinician Unavailable [email or web address] Attending Clinician Unavaila BARBARA Kan Attending Clinician BARBARA Vance Attending Clinician KATIE Murguia Attending Clinician UnavailKatie Jackson MD Attending Clinician [phone] Doctor Unassigned, Blain Attending Clinician U DIONICIO Stevens Attending Clinician Unavailab Dionicio Mccall Attending Clinician [phone] Rainer Rizo Attending Clinician [phone] Diane Bryant PA-C Attending Clinician [phone] DIANE BRYANT Attending Clinician Unavailable Bryant Delgado Admitting Clinician Unavailable [email or web address] Admitting Clinician Unavaila ble Payers Payer Name Policy Type Policy Number Effective Date Expirati on Date Source [employer] MEDICAID [id number] 2017 00:00:00 Problems Condition Name Condition Details Condition Category Status Onset Date Resolution Date Last Treatment Date Treating Clinician Comments Source History of heart murmur in childhood History of heart murmur in childhood Disease Active 11-02 00:00: 00 [facility] Maternal varicella, non-immune Maternal varicella, non-immune Disease Active 11-02 00:00: 00 Overview: Formattin g of this note might be different from the original. Address in [facility] Screening for viral disease Screening for viral disease Disease Active 11-01 00:00: 00 [facility] History of anemia History of anemia Disease Active 11-01 00:00: 00 [facility] Primigravi da in first trimester Primigravi da in first trimester Disease Active 11-01 00:00: 00 [facility] High risk teen in first trimester High risk teen in first trimester Disease Active 11-01 00:00: 00 [facility] Supervisio n of high risk in first trimester Supervisio n of high risk in first trimester Disease Active 11-01 00:00: 00 [facility] Excessive menstruati on at puberty Excessive menstruati on at puberty Disease Active 03-31 00:00: 00 [facility] Depo-Prove ra contracept caty status Depo-Prove ra contracept caty status Disease Active 03-31 00:00: 00 [facility] History of blood transfusio n History of blood transfusio n Disease Active 03-31 00:00: 00 [facility] Iron deficiency anemia due to chronic blood loss Iron deficiency anemia due to chronic blood loss Disease Active 03-31 00:00: 00 [facility] Elevated hemoglobin A1c Elevated hemoglobin A1c Disease Active 03-31 00:00: 00 [facility] Allergies, Adverse Reactions, Alerts Allergy Name Allergy Type Status Severity Reaction(s) Onset Date Inactive Date Treating Clinician Comments Source No Known Allergie s DA Active U 05-02 00:00: 00 [facility] Woman's [facility] No Known Allergie s DA Active U 05-02 00:00: 00 [facility] Womans [facility] NO KNOWN ALLERGIE S Drug Class Active [facility] Social History Social Habit Start Date Stop Date Quantity Comments Source ASSERTION 2019-09-10 00:00:00 [facility] Exposure to SARS-CoV-2 (event) Not sure [facility] Alcohol intake 2022-11-26 00:00:00 2022-11-26 00:00:00 Current non-drinker of alcohol (finding) [facility] History of Social function 2019-11-02 00:00:00 2019-11-02 00:00:00 [facility] Tobacco use and exposure 2017-03-31 00:00:00 2017-03-31 00:00:00 Smokeless tobacco non-user [facility] Sex Assigned At 2002 00:00:00 2000 00:00:00 [facility] Smoking Status Start Date Stop Date Source Never smoked tobacco [facility] Medications Ordered Medication Name Filled Medication Name Start Date Stop Date Current Medication? Ordering Clinician Indication Dosage Frequency Signature (SIG) Comments Components Source norgestimat e-ethinyl estradioL (SPRINTEC) 0.25-35 mg-mcg per tablet 2022-03 00:00: 00 Yes [id number] 100 1{tbl} Take 1 tablet by mouth in the morning. [facility] ibuprofen 800 mg tablet 2022-03 00:00: 00 Yes [id number] 800mg Take 1 tablet by mouth every 8 (eight) hours as needed for Pain (scale 4-6). [facility] meclizine (TRAVEL-EAS E (MECLIZINE) ) tablet 25 mg 11-27 01:30: 00 11-27 01:39 :00 No 25mg 25 mg, Oral, ONCE, 1 dose, On Thu11/26/22 at 2030, KAILA [facility] meclizine 25 mg tablet 11-26 00:00: 00 Yes [id number] 25mg Take 1 tablet by mouth every 6 (six) hours as needed for Dizziness or Nausea. [facility] proMETHazin e 25 mg tablet 11-26 00:00: 00 Yes [id number] 25mg Take 1 tablet by mouth every 6 (six) hours as needed for Nausea and Vomiting (N/V). [facility] meclizine 25 mg tablet 11-26 00:00: 00 Yes [id number] 25mg Take 1 tablet by mouth every 6 (six) hours as needed for Dizziness or Nausea. [facility] proMETHazin e 25 mg tablet 11-26 00:00: 00 Yes [id number] 25mg Take 1 tablet by mouth every 6 (six) hours as needed for Nausea and Vomiting (N/V). [facility] ferrous sulfate 325 mg (65 mg iron) tablet 11-09 00:00: 00 Yes [id number] 325mg Take 1 tablet by mouth 2 (two) times daily. [facility] ascorbic acid, vitamin C, 500 mg tablet 11-09 00:00: 00 Yes [id number] 500mg Take 1 tablet by mouth 3 (three) times daily. [facility] ferrous sulfate 325 mg (65 mg iron) tablet 11-09 00:00: 00 Yes [id number] 325mg Take 1 tablet by mouth 2 (two) times daily. [facility] ascorbic acid, vitamin C, 500 mg tablet 11-09 00:00: 00 Yes [id number] 500mg Take 1 tablet by mouth 3 (three) times daily. [facility] ferrous sulfate 325 mg (65 mg iron) tablet 11-09 00:00: 00 Yes [id number] 325mg Take 1 tablet by mouth 2 (two) times daily. [facility] ascorbic acid, vitamin C, 500 mg tablet 11-09 00:00: 00 Yes [id number] 500mg Take 1 tablet by mouth 3 (three) times daily. [facility] ferrous sulfate 325 mg (65 mg iron) tablet 11-09 00:00: 00 Yes [id number] 325mg Take 1 tablet by mouth 2 (two) times daily. [facility] ascorbic acid, vitamin C, 500 mg tablet 11-09 00:00: 00 Yes [id number] 500mg Take 1 tablet by mouth 3 (three) times daily. [facility] ferrous sulfate 325 mg (65 mg iron) tablet 11-09 00:00: 00 Yes [id number] 325mg Take 1 tablet by mouth 2 (two) times daily. [facility] ascorbic acid, vitamin C, 500 mg tablet 11-09 00:00: 00 Yes [id number] 500mg Take 1 tablet by mouth 3 (three) times daily. [facility] medroxyPROG ESTERone (DEPO-PROVE RA) 150 mg/mL injection 11-01 19:23: 11-01 00:00 :00 No 150mg 150 mg by Intramuscu lar route every 3 (three) months. [facility] medroxyPROG ESTERone (DEPO-PROVE RA) 150 mg/mL injection 11-01 19:23: 11-01 00:00 :00 No 150mg 150 mg by Intramuscu lar route every 3 (three) months. [facility] medroxyPROG ESTERone (DEPO-PROVE RA) 150 mg/mL injection 11-01 19:: 11-01 00:00 :00 No 150mg 150 mg by Intramuscu lar route every 3 (three) months. [facility] medroxyPROG ESTERone (DEPO-PROVE RA) 150 mg/mL injection 11-01 19:23: 11-01 00:00 :00 No 150mg 150 mg by Intramuscu lar route every 3 (three) months. [facility] medroxyPROG ESTERone (DEPO-PROVE RA) 150 mg/mL injection 11-01 19:23: 11-01 00:00 :00 No 150mg 150 mg by Intramuscu lar route every 3 (three) months. [facility] medroxyPROG ESTERone (DEPO-PROVE RA) 150 mg/mL injection 11-01:: 11-01 00:00 :00 No 150mg 150 mg by Intramuscu lar route every 3 (three) months. [facility] medroxyPROG ESTERone (DEPO-PROVE RA) 150 mg/mL injection 11-01:: 11-01 00:00 :00 No 150mg 150 mg by Intramuscu lar route every 3 (three) months. [facility] ferrous sulfate (IRON) 325 mg (65 mg iron) tablet 11-01:: 11-01 00:00 :00 No 325mg Take 325 mg by mouth 3 (three) times daily with meals. [facility] ferrous sulfate (IRON) 325 mg (65 mg iron) tablet 11-01 00:00 :00 No 325mg Take 325 mg by mouth 3 (three) times daily with meals. [facility] ferrous sulfate (IRON) 325 mg (65 mg iron) tablet 11-01 00:00 :00 No 325mg Take 325 mg by mouth 3 (three) times daily with meals. [facility] ferrous sulfate (IRON) 325 mg (65 mg iron) tablet 11-01: 11-01 00:00 :00 No 325mg Take 325 mg by mouth 3 (three) times daily with meals. [facility] ferrous sulfate (IRON) 325 mg (65 mg iron) tablet 11-01:: 11-01 00:00 :00 No 325mg Take 325 mg by mouth 3 (three) times daily with meals. [facility] ferrous sulfate (IRON) 325 mg (65 mg iron) tablet 11-01:11-01 00:00 :00 No 325mg Take 325 mg by mouth 3 (three) times daily with meals. [facility] ferrous sulfate (IRON) 325 mg (65 mg iron) tablet 11-01:: 11-01 00:00 :00 No 325mg Take 325 mg by mouth 3 (three) times daily with meals. [facility] vit 33-iron-fol ic-dha (SELECT-OB + DHA) 29 mg iron-1 mg -250 mg combo pack 11-01 00:00: 00 Yes [id number] 1{packe t} Take 1 Packet by mouth daily. [facility] vit 33-iron-fol ic-dha (SELECT-OB + DHA) 29 mg iron-1 mg -250 mg combo pack 11-01 00:00: 00 Yes [id number] 1{packe t} Take 1 Packet by mouth daily. [facility] vit 33-iron-fol ic-dha (SELECT-OB + DHA) 29 mg iron-1 mg -250 mg combo pack 11-01 00:00: 00 Yes [id number] 1{packe t} Take 1 Packet by mouth daily. [facility] vit 33-iron-fol ic-dha (SELECT-OB + DHA) 29 mg iron-1 mg -250 mg combo pack 11-01 00:00: 00 Yes [id number] 1{packe t} Take 1 Packet by mouth daily. [facility] vit 33-iron-fol ic-dha (SELECT-OB + DHA) 29 mg iron-1 mg -250 mg combo pack 11-01 00:00: 00 Yes [id number] 1{packe t} Take 1 Packet by mouth daily. [facility] vit 33-iron-fol ic-dha (SELECT-OB + DHA) 29 mg iron-1 mg -250 mg combo pack 11-01 00:00: 00 Yes [id number] 1{packe t} Take 1 Packet by mouth daily. [facility] vit 33-iron-fol ic-dha (SELECT-OB + DHA) 29 mg iron-1 mg -250 mg combo pack 11-01 00:00: 00 Yes [id number] 1{packe t} Take 1 Packet by mouth daily. [facility] vit 33-iron-fol ic-dha (SELECT-OB + DHA) 29 mg iron-1 mg -250 mg combo pack 11-01 00:00: 00 Yes [id number] 1{packe t} Take 1 Packet by mouth daily. [facility] vit 33-iron-fol ic-dha (SELECT-OB + DHA) 29 mg iron-1 mg -250 mg combo pack 11-01 00:00: 00 Yes [id number] 1{packe t} Take 1 Packet by mouth daily. [facility] vit 33-iron-fol ic-dha (SELECT-OB + DHA) 29 mg iron-1 mg -250 mg combo pack 11-01 00:00: 00 Yes [id number] 1{packe t} Take 1 Packet by mouth daily. [facility] vit 33-iron-fol ic-dha (SELECT-OB + DHA) 29 mg iron-1 mg -250 mg combo pack 11-01 00:00: 00 Yes [id number] 1{packe t} Take 1 Packet by mouth daily. [facility] vit 33-iron-fol ic-dha (SELECT-OB + DHA) 29 mg iron-1 mg -250 mg combo pack 11-01 00:00: 00 Yes [id number] 1{packe t} Take 1 Packet by mouth daily. [facility] proMETHazin e (PHENERGAN) 25 mg in NaCl 0.9% (NS) 50 mL piggyback 10-05 23:30: 00 10-05 23:30 :00 No 25mg 25 mg, IV Piggyback, ONCE, 1 dose, Reema 10/06/19 at 1830, 50 mL [facility] NaCl 0.9% (NS) bolus infusion 1,000 mL 10-05 23:00: 00 10-06 00:02 :00 No 1000mL at 999 mL/hr, 1,000 mL, IV Infusion, ONCE, 1 dose, Reema 10/06/19 at 1800, KAILA [facility] NaCl 0.9% (NS) bolus infusion 1,000 mL 10-05 22:30: 00 10-05 23:12 :00 No 1000mL at 999 mL/hr, 1,000 mL, IV Infusion, ONCE, 1 dose, [facility] 10/06/19 at 1730, KAILA [facility] proMETHazin e 25 mg tablet 10-05 00:00: 00 Yes [id number] 25mg Take 1 tablet by mouth every 6 (six) hours as needed for Nausea and Vomiting (N/V). [facility] proMETHazin e (PHENERGAN) 25 mg suppository 10-05 00:00: 00 Yes [id number] 25mg Insert 1 Suppositor y into rectum every 6 (six) hours as needed for Nausea and Vomiting (N/V). [facility] multivitami n ( VITAMIN) tablet 10-05 00:00: 00 Yes [id number] 1{tbl} Take 1 tablet by mouth daily. [facility] proMETHazin e 25 mg tablet 10-05 00:00: 00 Yes [id number] 25mg Take 1 tablet by mouth every 6 (six) hours as needed for Nausea and Vomiting (N/V). [facility] proMETHazin e (PHENERGAN) 25 mg suppository 10-05 00:00: 00 Yes [id number] 25mg Insert 1 Suppositor y into rectum every 6 (six) hours as needed for Nausea and Vomiting (N/V). [facility] multivitami n ( VITAMIN) tablet 10-05 00:00: 00 Yes [id number] 1{tbl} Take 1 tablet by mouth daily. [facility] proMETHazin e 25 mg tablet 10-05 00:00: 00 11-01 00:00 :00 No [id number] 25mg Take 1 tablet by mouth every 6 (six) hours as needed for Nausea and Vomiting (N/V). [facility] proMETHazin e (PHENERGAN) 25 mg suppository 10-05 00:00: 00 11-01 00:00 :00 No [id number] 25mg Insert 1 Suppositor y into rectum every 6 (six) hours as needed for Nausea and Vomiting (N/V). [facility] multivitami n ( VITAMIN) tablet 8-06 00:00: 11-01 00:00 :00 No [id number] 1{tbl} Take 1 tablet by mouth daily. [facility] proMETHazin e 25 mg tablet 8-06 00:00: 11-01 00:00 :00 No [id number] 25mg Take 1 tablet by mouth every 6 (six) hours as needed for Nausea and Vomiting (N/V). [facility] proMETHazin e (PHENERGAN) 25 mg suppository 8 00:00: 00 11-01 00:00 :00 No [id number] 25mg Insert 1 Suppositor y into rectum every 6 (six) hours as needed for Nausea and Vomiting (N/V). [facility] multivitami n ( VITAMIN) tablet 10-05 00:00: 11-01 00:00 :00 No [id number] 1{tbl} Take 1 tablet by mouth daily. [facility] proMETHazin e 25 mg tablet 10-05 00:00: 11-01 00:00 :00 No [id number] 25mg Take 1 tablet by mouth every 6 (six) hours as needed for Nausea and Vomiting (N/V). [facility] proMETHazin e (PHENERGAN) 25 mg suppository 806 00:00: 11-01 00:00 :00 No [id number] 25mg Insert 1 Suppositor y into rectum every 6 (six) hours as needed for Nausea and Vomiting (N/V). [facility] multivitami n ( VITAMIN) tablet 806 00:00: 11-01 00:00 :00 No [id number] 1{tbl} Take 1 tablet by mouth daily. [facility] proMETHazin e 25 mg tablet 806 00:00: 11-01 00:00 :00 No [id number] 25mg Take 1 tablet by mouth every 6 (six) hours as needed for Nausea and Vomiting (N/V). [facility] proMETHazin e (PHENERGAN) 25 mg suppository 8-06 00:00: 11-01 00:00 :00 No [id number] 25mg Insert 1 Suppositor y into rectum every 6 (six) hours as needed for Nausea and Vomiting (N/V). [facility] multivitami n ( VITAMIN) tablet 8 00:00: 11-01 00:00 :00 No [id number] 1{tbl} Take 1 tablet by mouth daily. [facility] proMETHazin e 25 mg tablet 10-05 00:00: 11-01 00:00 :00 No [id number] 25mg Take 1 tablet by mouth every 6 (six) hours as needed for Nausea and Vomiting (N/V). [facility] proMETHazin e (PHENERGAN) 25 mg suppository 10-05 00:00: 11-01 00:00 :00 No [id number] 25mg Insert 1 Suppositor y into rectum every 6 (six) hours as needed for Nausea and Vomiting (N/V). [facility] multivitami n ( VITAMIN) tablet 10-05 00:00: 11-01 00:00 :00 No [id number] 1{tbl} Take 1 tablet by mouth daily. [facility] proMETHazin e 25 mg tablet 10-05 00:00: 11-01 00:00 :00 No [id number] 25mg Take 1 tablet by mouth every 6 (six) hours as needed for Nausea and Vomiting (N/V). [facility] proMETHazin e (PHENERGAN) 25 mg suppository 8- 00:00: 11-01 00:00 :00 No [id number] 25mg Insert 1 Suppositor y into rectum every 6 (six) hours as needed for Nausea and Vomiting (N/V). [facility] multivitami n ( VITAMIN) tablet 10-05 00:00: 11-01 00:00 :00 No [id number] 1{tbl} Take 1 tablet by mouth daily. [facility] proMETHazin e 25 mg tablet 10-05 00:00: 11-01 00:00 :00 No [id number] 25mg Take 1 tablet by mouth every 6 (six) hours as needed for Nausea and Vomiting (N/V). [facility] proMETHazin e (PHENERGAN) 25 mg suppository 10-05 00:00: 11-01 00:00 :00 No [id number] 25mg Insert 1 Suppositor y into rectum every 6 (six) hours as needed for Nausea and Vomiting (N/V). [facility] multivitami n ( VITAMIN) tablet 10-05 00:00: 11-01 00:00 :00 No [id number] 1{tbl} Take 1 tablet by mouth daily. [facility] cephALEXin (KEFLEX) 500 mg capsule 10-05 00:00: 10-13 04:59 :00 No [id number] 500mg Take 1 capsule by mouth 2 (two) times daily for 7 days. [facility] medroxyPROG ESTERone (DEPO-PROVE RA) 150 mg/mL injection 10-09 21:17: 16 Yes 150mg 150 mg by Intramuscu lar route every 3 (three) months. [facility] medroxyPROG ESTERone (DEPO-PROVE RA) 150 mg/mL injection 10-09 21:17: 16 Yes 150mg 150 mg by Intramuscu lar route every 3 (three) months. [facility] medroxyPROG ESTERone (DEPO-PROVE RA) 150 mg/mL injection 10-09 21:17: 16 Yes 150mg 150 mg by Intramuscu lar route every 3 (three) months. [facility] medroxyPROG ESTERone (DEPO-PROVE RA) 150 mg/mL injection 10-09 21:17: 16 Yes 150mg 150 mg by Intramuscu lar route every 3 (three) months. [facility] ferrous sulfate (IRON) 325 mg (65 mg iron) tablet 06-29 18:14: 37 Yes 325mg Take 325 mg by mouth 3 (three) times daily with meals. [facility] ferrous sulfate (IRON) 325 mg (65 mg iron) tablet 06-29 18:14: 37 Yes 325mg Take 325 mg by mouth 3 (three) times daily with meals. [facility] ferrous sulfate (IRON) 325 mg (65 mg iron) tablet 06-29 18:14: 37 Yes 325mg Take 325 mg by mouth 3 (three) times daily with meals. [facility] ferrous sulfate (IRON) 325 mg (65 mg iron) tablet 06-29 18:14: 37 Yes 325mg Take 325 mg by mouth 3 (three) times daily with meals. [facility] Vital Signs Vital Name Observation Time Observation Value Comments S ource Body temperature 2023-02-04 06:56:00 36.61 Carmen [facility] Systolic blood pressure 2023-02-04 06:00:00 121 mm[Hg] [facility] Diastolic blood pressure 2023-02-04 06:00:00 83 mm[Hg] [facility] Heart rate 2023-02-04 06:00:00 81 /min [facility] Oxygen saturation in Arterial blood by Pulse oximetry 2023-02-04 06:00:00 99 /min [facility] Respiratory rate 2023-02-04 05:47:00 16 /min [facility] Body height 2023-02-04 04:34:00 170.2 cm [facility] Body weight 2023-02-04 04:34:00 55.792 kg [facility] BMI 2023-02-04 04:34:00 19.26 kg/m2 [facility] Heart rate 2022-11-27 01:00:00 89 /min [facility] Respiratory rate 2022-11-27 01:00:00 16 /min [facility] Oxygen saturation in Arterial blood by Pulse oximetry 2022-11-27 01:00:00 100 /min [facility] Systolic blood pressure 2022-11-27 00:13:00 122 mm[Hg] [facility] Diastolic blood pressure 2022-11-27 00:13:00 76 mm[Hg] [facility] Body temperature 2022-11-27 00:13:00 37.11 Carmen [facility] Body height 2022-11-27 00:13:00 167.6 cm [facility] 2022-11-27 00:13:00 58.514 kg [facility] BMI 2022-11-27 00:13:00 20.82 kg/m2 [facility] Systolic blood pressure 2019-11-10 17:59:00 119 mm[Hg] [facility] Diastolic blood pressure 2019-11-10 17:59:00 72 mm[Hg] [facility] Heart rate 2019-11-10 17:59:00 100 /[facility] Body temperature 2019-11-10 17:59:00 37.28 Carmen [facility] Respiratory rate 2019-11-10 17:59:00 16 /min [facility] Body height 2019-11-10 17:59:00 167.6 cm [facility] Body weight 2019-11-10 17:59:00 59.285 kg [facility] BMI 2019-11-10 17:59:00 21.10 kg/m2 [facility] Systolic blood pressure 2019-11-10 17:59:00 119 mm[Hg] [facility] Diastolic blood pressure 2019-11-10 17:59:00 72 mm[Hg] [facility] Heart rate 2019-11-10 17:59:00 100 /min Unive [facility] Body temperature 2019-11-10 17:59:00 37.28 Carmen [facility] Respiratory rate 2019-11-10 17:59:00 16 /min [facility] Body height 2019-11-10 17:59:00 167.6 cm [facility] Body weight 2019-11-10 17:59:00 59.285 kg [facility] BMI 2019-11-10 17:59:00 21.10 kg/m2 [facility] Systolic blood pressure 2019-11-02 18:34:00 117 mm[Hg] [facility] Diastolic blood pressure 2019-11-02 18:34:00 63 mm[Hg] [facility] Heart rate 2019-11-02 18:34:00 73 /min Unive [facility] Body temperature 2019-11-02 18:34:00 36.11 Carmen [facility] Respiratory rate 2019-11-02 18:34:00 16 /min [facility] Body height 2019-11-02 18:34:00 167.6 cm [facility] Body weight 2019-11-02 18:34:00 59.92 kg [facility] BMI 2019-11-02 18:34:00 21.32 kg/m2 [facility] Systolic blood pressure 2019-11-02 18:34:00 117 mm[Hg] [facility] Diastolic blood pressure 2019-11-02 18:34:00 63 mm[Hg] [facility] Heart rate 2019-11-02 18:34:00 73 /min Unive [facility] Body temperature 2019-11-02 18:34:00 36.11 Carmen [facility] Respiratory rate 2019-11-02 18:34:00 16 /min [facility] Body height 2019-11-02 18:34:00 167.6 cm [facility] Body weight 2019-11-02 18:34:00 59.92 kg [facility] BMI 2019-11-02 18:34:00 21.32 kg/m2 [facility] Systolic blood pressure 2019-10-07 00:00:00 102 mm[Hg] [facility] Diastolic blood pressure 2019-10-07 00:00:00 66 mm[Hg] [facility] Heart rate 2019-10-07 00:00:00 95 /min Unive [facility] Respiratory rate 2019-10-07 00:00:00 16 /min [facility] Oxygen saturation in Arterial blood by Pulse oximetry 2019-10-07 00:00:00 100 /min [facility] Body temperature 2019-10-06 22:17:00 37.28 Carmen [facility] Body weight 2019-10-06 22:17:00 61.689 kg [facility] Procedures Procedure Date / Time Performed Performing Clinician Source TEST, SERUM 2023-02-04 04:45:00 Amanda Rodriguez [facility] COMP. METABOLIC PANEL (91040) 2023-02-04 04:45:00 Bo Rodriguez [facility] CBC WITH DIFF 2023-02-04 04:45:00 Bo Rodriguez [facility] URINALYSIS 2023-02-04 04:45:00 Bo Rodriguez [facility] HB ABO GROUPING 2023-02-04 04:45:00 Bo Rodriguez [facility] NOTICE OF PRIVACY PRACTICES 2023-02-04 04:22:51 Doctor Unassigned, Blain [facility] CONSENT/REFUSAL FOR DIAGNOSIS AND TREATMENT 2023-02-04 04:21:33 Doctor Unassigned, Blain [facility] TEST, SERUM 2022-11-27 00:34:00 Vega Tinsley [facility] BASIC METABOLIC PANEL (NA, K, CL, CO2, GLUCOSE, BUN, CREATININE, CA) 2022-11-27 00:34:00 Katie Tinsley [facility] CBC WITH DIFF 2022-11-27 00:34:00 Katie Tinsley [facility] HB ABO GROUPING 2022-11-27 00:34:00 Katie Tinsley [facility] NOTICE OF PRIVACY PRACTICES 2022-11-27 00:04:00 Doctor Unassigned, Blain [facility] CONSENT/REFUSAL FOR DIAGNOSIS AND TREATMENT 2022-11-27 00:02:34 Doctor Unassigned, Blain [facility] [id number] 2020-05-21 00:00:00 [facility] [id number] 2020-05-21 00:00:00 [facility] AUTHORIZATION FOR RELEASE OF PHI 2019-12-15 05:01:00 Doctor Unassigned, Blain [facility] POCT URINALYSIS 2019-11-10 00:00:00 Dionicio Angel [facility] URINE CULTURE 2019-11-02 19:48:00 Dionicio Angel U [facility] GC & CHLAMYDIA AMPLIFIED ASSAY 2019-11-02 19:48:00 Annette [facility] TRICHOMONAS AMPLIFIED ASSAY 2019-11-02 19:48:00 Annette [facility] RUBELLA SCREEN IGG 2019-11-02 19:45:00 Cas Angel [facility] VZV ANTIBODY SCREEN 2019-11-02 19:45:00 Kalee Angel [facility] HEPATITIS B SURFACE ANTIGEN 2019-11-02 19:45:00 Dionicio Angel [facility] HB ABO GROUPING 2019-11-02 19:45:00 Dionicio Angel [facility] HIV 1/2 AG-AB WITH REFLEX 2019-11-02 19:45:00 Dionicio Angel [facility] GALV ONLY - SYPHILIS IGG/IGM 2019-11-02 19:45:00 Dionicio Angel [facility] SARS-COV-2 IGG 2019-11-02 19:45:00 Dionicio Angel [facility] ASSIGNMENT OF BENEFITS 2019-11-02 18:09:06 Docto r Unassigned, Blain [facility] POCT TEST 2019-11-02 00:00:00 Kalee Angel [facility] POCT URINALYSIS W/O SPECIFIC GRAVITY 2019-11-02 00:00:00 Dionicio Angel [facility] LIPASE 2019-10-06 22:26:00 Rainer [facility] COMP. METABOLIC PANEL ([id number]) 2019-10-06 22:26:00 Rainer Martinez [facility] TOTAL BETA HCG ASSAY 2019-10-06 22:26:00 Claudia Martinez [facility] CBC WITH DIFF 2019-10-06 22:26:00 [facility] URINALYSIS 2019-10-06 22:26:00 Rainer [facility] NOTICE OF PRIVACY PRACTICES 2019-10-06 22:12:54 Doctor Unassigned, Blain [facility] CONSENT/REFUSAL FOR DIAGNOSIS AND TREATMENT 2019-10-06 22:04:48 Doctor Unassigned, Blain [facility] Encounters Start Date/Time End Date/Time Encounter Type Admission Type Attending [facility] Care Department Encounter ID Source 2020-12-28 11:06:35 Emergency [facility] [id number] [facility] 2020-05-24 06:55:26 Inpatient ElysiaBryant [facility] [id number] [facility] 2020-05-16 23:19:09 Inpatient ElysiaBryant [facility] [id number] [facility] 2020-05-02 22:03:36 Inpatient ElysiaBryant [facility] [id number] [facility] 2023-02-03 22:37:00 2023-02-04 01:00:00 Emergency X BO RODRIGUEZ [facility] ERT [id number] [facility] 2023-02-03 22:37:00 2023-02-04 01:00:00 Emergency Bo Rodriguez [facility] 1.2.840.114 350.1.13.10 4.2.7.2.686 [id number] [facility] 2023-01-27 04:04:00 2023-01-27 04:51:00 Emergency X KEVIN REYNA [facility] ERT [id number] [facility] 2022-12-29 00:00:00 2022-12-29 00:00:00 Outpatient GC_GCBZW_Ka diyala_S PRIV PRIV [id number] [facility] 2022-12-28 00:00:00 2022-12-28 00:00:00 Outpatient GC_GCBZW_Ka diyala_S PRIV PRIV [id number] [facility] 2022-12-09 13:30:00 2022-12-09 13:30:00 Outpatient R TAMERA S, BARBARA TAMERA S, BARBARA [facility] [id number] [facility] 2022-11-26 19:18:00 2022-11-26 20:42:00 Emergency X KATIE TINSLEY [facility] ERT [id number] [facility] 2022-11-26 19:18:00 2022-11-26 20:42:00 Emergency Katie Tinsley Lee [facility] 1.840.114 350.1.13.10 4.2.7.2.686 [id number] [facility] 2019-12-15 00:00:00 2019-12-15 00:00:00 Orders Only Doctor Unassigned, Blain [facility] 1.2840.114 350.1.13.10 4.2.7.2.686 [id number] 2019-12-15 00:00:00 2019-12-15 00:00:00 Orders Only Doctor Unassigned, Blain [facility] 1.2840.114 350.1.13.10 4.2.7.2.686 [id number] [facility] 2019-12-12 10:45:00 2019-12-12 10:45:00 Outpatient R DIONICIO ANGEL [facility] [id number] [facility] 2019-12-06 00:00:00 2019-12-06 00:00:00 Telephone Dionicio Angel [facility] HOUSE NURSE [facility]ERNAL [facility] CHILD [facility] 1.840.114 350.1.13.10 4.2.7.2.686 [id number] 2019-12-06 00:00:00 2019-12-06 00:00:00 Telephone Dionicio Angel [facility] HOUSE NURSE [facility] MATERNAL & CHILD [facility] 1.2840.114 350.1.13.10 4.2.7.2.686 [id number] [facility] 2019-11-30 13:00:00 2019-11-30 13:00:00 Outpatient R DIONICIO ANGEL [facility] [id number] [facility] 2019-11-30 09:00:00 2019-11-30 09:00:00 Outpatient R DIONICIO ANGEL [facility] [id number] [facility] 2019-11-17 13:30:00 2019-11-17 13:30:00 Outpatient P [facility] [id number] [facility] 2019-11-10 12:52:31 2019-11-10 13:34:11 Routine Visit Dionicio Angel [facility] HOUSE NURSE [facility] MATERNAL & CHILD [facility] 1.2.840.114 350.1.13.10 4.2.7.2.686 [id number] 2019-11-10 12:52:31 2019-11-10 13:34:11 Routine Visit Dionicio Angel [facility] HOUSE NURSE [facility]ILD [facility] 1.2.840.114 350.1.13.10 4.2.7.2.686 [id number] [facility] 2019-11-10 12:45:00 2019-11-10 12:45:00 Outpatient R DIONICIO ANGEL [facility] [id number] [facility] 2019-11-02 13:25:22 2019-11-02 14:49:05 Initial Visit Dionicio Angel [facility] HOUSE NURSE [facility]ILD [facility] 1.2.840.114 350.1.13.10 4.2.7.2.686 [id number] 2019-11-02 13:25:22 2019-11-02 14:49:05 Initial Visit Cas Angeleverette Dre [facility] HOUSE NURSE [facility] MATERNAL & CHILD [facility] 1.2.840.114 350.1.13.10 4.2.7.2.686 [id number] [facility] 2019-11-02 12:45:00 2019-11-02 12:45:00 Outpatient DIONICIO LORENZO [facility] [id number] [facility] 2019-11-02 00:00:00 2019-11-02 00:00:00 Orders Only Doctor Unassigned, Blain [facility] 1.2.840.114 350.1.13.10 4.2.7.2.686 [id number] [facility] 2019-10-06 17:11:00 2019-10-06 19:06:00 Emergency Rainer Martinez [facility] 1.2.840.114 350.1.13.10 4.2.7.2.686 [id number] [facility] 2019-10-06 00:00:00 2019-10-06 00:00:00 Orders Only Doctor Unassigned, Blain [facility] 1.2.840.114 350.1.13.10 4.2.7.2.686 [id number] [facility] 2019-05-23 15:41:09 2019-05-23 16:11:09 Telemedici ne Visit Annette Diane [facility] 1.2.840.114 350.1.13.10 4.2.7.2.686 [id number] [facility] 2019-05-23 15:45:00 2019-05-23 15:45:00 Outpatient R ANNETTE DIANE [facility] [id number] [facility] Results Test Description Test Time Test Comments Results Result Co mments Source [facility] (97819)2023-02-04 05:19:15* Test Item Value Reference Range Interpretation Comme nts NA (test code = 9926671786) 140 mmol/L 135-145 K (test code = 9284823657) 4.0 mmol/L 3.5-5.0 CL (test code = 3535692820) 106 mmol/L 98-108 CO2 TOTAL (test code = 1921104744) 24 mmol/L 23-31 AGAP (test code = 5193974069) 10 2-16 BUN (test code = 9494544369) 8 mg/dL 7-23 GLUCOSE (test code = 7938482661) 94 mg/dL 70-110 CREATININE (test code = 0956992375) 0.70 mg/dL 0.50-1.04 TOTAL BILI (test code = 6247023160) 0.5 mg/dL 0.1-1.1 CALCIUM (test code = 6914826829) 9.7 mg/dL 8.6-10.6 T PROTEIN (test code = 2019852749) 9.0 g/dL 6.3-8.2 H ALBUMIN (test code = 7298190859) 4.8 g/dL 3.5-5.0 ALK PHOS (test code = 6608106444) 60 U/L 34-122 ALTv (test code = 1742-6) 14 U/L 5-35 AST(SGOT) (test code = 8238241874) 26 U/L 13-40 eGFR (test code = 82596-9) 126.4 mL/min/1.73m2 CKD-EPI eGFR (2020). Assuming creatinine has been stable day-to-day for at least three months, the eGFR indicates Category G1 (>= 90 mL/min/1.73 m2) Lab Interpretation (test code = 43564-3) Abnormal [facility] WITH [id number] 05:05:35* Test Item Value Reference Range Interpretation Comme nts WBC (test code = 6690-2) 5.12 See_Comment [Automated Channel [employer]] The system which generated this result transmitted reference range: 4.30 - 11.10 10*3/?L. The reference range was not used to interpret this result as normal/abnormal. RBC (test code = 789-8) 5.29 See_Comment H [Automated Channel [employer]] The system which generated this result transmitted reference range: 3.93 - 5.25 10*6/?L. The reference range was not used to interpret this result as normal/abnormal. HGB (test code = 718-7) 10.1 g/dL 11.6-15.0 L HCT (test code = 4544-3) 36.1 % 35.7-45.2 MCV (test code = 787-2) 68.2 fL 80.6-95.5 L MCH (test code = 785-6) 19.1 pg 25.9-32.8 L MCHC (test code = 786-4) 28.0 g/dL 31.6-35.1 L RDW-SD (test code = 10608-5) 43.7 fL 39.0-49.9 RDW-CV (test code = 788-0) 18.6 % 12.0-15.5 H PLT (test code = 777-3) 397 See_Comment H [Automated messa ge] The system which generated this result transmitted reference range: 166 - 358 10*3/?L. The reference range was not used to interpret this result as normal/abnormal. MPV (test code = 98447-1) 10.4 fL 9.5-12.9 NRBC/100 WBC (test code = 2368327189) 0.0 See_Comment [Automated [employer] ssage] The system which generated this result transmitted reference range: 0.0 - 10.0 /100 WBCs. The reference range was not used to interpret this result as normal/abnormal. NRBC x10^3 (test code = 1666923901) See_Comment [Automated messa ge] The system which generated this result transmitted reference range: 10*3/?L. The reference range was not used to interpret this result as normal/abnormal. GRAN MAT (NEUT) % (test code = 770-8) 45.7 % IMM GRAN % (test code = 2708297037) 0.20 % LYMPH % (test code = 736-9) 44.7 % MONO % (test code = 5905-5) 7.6 % EOS % (test code = 713-8) 1.0 % BASO % (test code = 706-2) 0.8 % GRAN MAT x10^3(ANC) (test code = 4919551980) 2.34 10*3/uL 1.88-7.09 IMM GRAN x10^3 (test code = 4162266838) 0.00-0.06 LYMPH x10^3 (test code = 731-0) 2.29 10*3/uL 1.32-3.29 MONO x10^3 (test code = 742-7) 0.39 10*3/uL 0.33-0.92 EOS x10^3 (test code = 711-2) 0.05 10*3/uL 0.03-0.39 BASO x10^3 (test code = 704-7) 0.04 10*3/uL 0.01-0.07 Lab Interpretation (test code = 99281-9) [facility]normal [facility] [id number] 05:03:00 * Test Item Value Reference Range Interpretation Comme nts ABO & RH (test code = 20) O Positive IAT (test code = 1185) Negative [facility] (NA, K, CL, CO2, GLUCOSE, BUN, CREATININE, CA)2022-11-27 01:10:44* Test Item Value Reference Range Interpretation Comme nts NA (test code = 4259886247) 140 mmol/L 135-145 K (test code = 7033113478) 4.0 mmol/L 3.5-5.0 CL (test code = 2981098539) 108 mmol/L 98-108 CO2 TOTAL (test code = 7189305478) 25 mmol/L 23-31 AGAP (test code = 2244791600) 7 2-16 BUN (test code = 9275176563) 10 mg/dL 7-23 GLUCOSE (test code = 0694531871) 90 mg/dL 70-110 CREATININE (test code = 8067571475) 0.66 mg/dL 0.50-1.04 CALCIUM (test code = 3947054488) 9.3 mg/dL 8.6-10.6 eGFR (test code = 1203703418) 114.2 mL/min/1.73m2 EFE (test code = EFE) Association of Glomerular Filtration Rate (GFR) and Staging of Kidney Disease* + + +- +| GFR (mL/min/1.73 m2) ?| With Kidney Damage ?| ?Without Kidney Damage+ ------+ ----+ ------+| ?>90 ?| ?Stage one ?| ? Normal ?+ -+ + -+| ?60-89 ?| ?Stage two ?| ? Decreased GFR ? + + +- +| ?30-59 ?| ?Stage three ?| ? Stage three ? + + +- +| ?15-29 ?| ?Stage four ? | ? Stage four ?+ -+ + -+| ?<15 (or dialysis) ? ?| ?Stage five ? | ? Stage five ?+ -+ + -+ *Each stage assumes the associated GFR level [...] or urine or abnormalities in imaging tests). [facility], [id number] 01:09:49* Test Item Value Reference Range Interpretation Comme nts PREG SERUM (test code = 5891823357) Negative EFE (test code = EFE) Less than 10 IU/L. ?If low titer or ectopic is suspected, resubmit specimen in 48-72 hours. [facility] WITH [id number] 00:58:05* Test Item Value Reference Range Interpretation Comme nts WBC (test code = 6690-2) 5.27 See_Comment [Automated Metaresolver] The system which generated this result transmitted reference range: 4.30 - 11.10 10*3/?L. The reference range was not used to interpret this result as normal/abnormal. RBC (test code = 789-8) 5.05 See_Comment [Automated Metaresolver] The system which generated this result transmitted reference range: 3.93 - 5.25 10*6/?L. The reference range was not used to interpret this result as normal/abnormal. HGB (test code = 718-7) 9.9 g/dL 11.6-15.0 L HCT (test code = 4544-3) 34.8 % 35.7-45.2 L MCV (test code = 787-2) 68.9 fL 80.6-95.5 L MCH (test code = 785-6) 19.6 pg 25.9-32.8 L MCHC (test code = 786-4) 28.4 g/dL 31.6-35.1 L RDW-SD (test code = 32489-4) 43.4 fL 39.0-49.9 RDW-CV (test code = 788-0) 17.9 % 12.0-15.5 H PLT (test code = 777-3) 336 See_Comment [Automated Channel Intellecta ge] The system which generated this result transmitted reference range: 166 - 358 10*3/?L. The reference range was not used to interpret this result as normal/abnormal. MPV (test code = 44063-7) 10.8 fL 9.5-12.9 NRBC/100 WBC (test code = 9351319260) 0.0 See_Comment [Automated [employer] ssage] The system which generated this result transmitted reference range: 0.0 - 10.0 /100 WBCs. The reference range was not used to interpret this result as normal/abnormal. NRBC x10^3 (test code = 2425296062) See_Comment [Automated Channel Intellecta ge] The system which generated this result transmitted reference range: 10*3/?L. The reference range was not used to interpret this result as normal/abnormal. GRAN MAT (NEUT) % (test code = 770-8) 49.5 % IMM GRAN % (test code = 4105390918) 0.00 % LYMPH % (test code = 736-9) 40.0 % MONO % (test code = 5905-5) 7.8 % EOS % (test code = 713-8) 2.1 % BASO % (test code = 706-2) 0.6 % GRAN MAT x10^3(ANC) (test code = 0281251992) 2.61 10*3/uL 1.88-7.09 IMM GRAN x10^3 (test code = 8822590922) 0.00-0.06 LYMPH x10^3 (test code = 731-0) 2.11 10*3/uL 1.32-3.29 MONO x10^3 (test code = 742-7) 0.41 10*3/uL 0.33-0.92 EOS x10^3 (test code = 711-2) 0.11 10*3/uL 0.03-0.39 BASO x10^3 (test code = 704-7) 0.03 10*3/uL 0.01-0.07 Lab Interpretation (test code = 19248-2) [facility]normal [facility]CE [id number] 00:53:00 * Test Item Value Reference Range Interpretation Comme nts ABO & RH (test code = 20) O Positive IAT (test code = 1185) Negative [facility] THIRD [id number] 18:24:00* Test Item Value Reference Range Interpretation Comme nts PLACENTA THIRD TRIMESTER (test code = PLACIII) RUN DATE: 05/23/20 [facility] PAGE 1 RUN TIME: 948 Specimen Inquiry RUN USER: INTERFACE BRENNAN ENT: JAMEEL CASTILLO LOC: KrishnaROSITA U #: [id number] AGE/SX: 20/F ROOM: [facility] RE05/20/20REG DR: Bryant Delgado MD : 02 BED: A DIS: 05/22/20 STATUS: DIS IN TLOC: SPEC #: [id number] RECD: 05/21/20 STATUS: APOLINAR RAYGOZA #: [id number] NELLIE: 05/21/20- SUBM DR: Bryant Delgado MD ENTERED: 05/21/20 SP TYPE: PLACIII OTHR DR: Carlton Ramirez MD ORDERED: LEVEL V SURGICA CODES: [id number] - PLACENTA, NOS COPIES TO: Bryant Delgado MD [address] [place], [place] [id number] Carlton Ramirez MD [address] [place] [address] [email or web address] PROCEDURES: LEVEL V SURGICA (Incomplete) TISSUES: PLACENTA, NOS - PLACENTA CLINICAL HISTORY 20 year old, 38.2 weeks, vaginal delivery, PROM (leonarda) FINAL DIAGNOSIS Placenta, 38.2 weeks gestational age, vaginal delivery: - third trimester placenta, 465 gms (40th percentile) - accelerated villous maturation - meconium macrophages within membranes - trivascular umbilical cord and membranes free of inflammation CPT: [facility]2771 [facility] GROSS DESCRIPTION The specimen was received in a container, labeled with the patient's name, unit number and designated "placenta". The following attributes are observed: Cord insertion: 5 cm from margin Cord length: 35 cm CONTINUED ON NEXT PAGE RUN DATE: 05/23/20 [facility] PAGE 2 RUN TIME: 948 Specimen Inquiry RUN USER: INTERFACE SPEC #: [id number] PATIENT: JAMEEL CASTILLO #[id number] (Continued) ------- GROSS DESCRIPTION (Continued) Number of [...] MD 05/22/20 1824 END OF REPORT RUBELLA [id number] 17:06:00* Test Item Value Reference Range Interpretation Comme nts RUBELLA SCREEN (test code = RUBSC) 18.3 IUnit/ml Results >10.0IUn its/ml are considered positive inaccordance with the CLSI guidelines and based on the WHO International Standard for Anti-Rubella serum as anindicator of immune status and a breakpoint to detect mostseropositive persons. AG HEPATITIS B [id number] 13:32:00* Test Item Value Reference Range Interpretation Comme nts AG HEPATITIS B SURFACE (test code = HBSAG) NONREACTIVE NONREACTIVE IS CONSENT FORM SIGNED FOR HIV TESTING? YAB HEPATITIS C [id number] 13:32:00* Test Item Value Reference Range Interpretation Comme nts AB HEPATITIS C (test code = HCVAB) NONREACTIVE NONREACTIVE SIGNAL TO CUTOFF (test code = CUTOFF) 0.03 <0.80 N IS CONSENT FORM SIGNED FOR HIV TESTING? YAB [id number] 13:32:00* Test Item Value Reference Range Interpretation Comme nts AB TREPONEMA (test code = TREPAB) NONREACTIVE NONREACTIVE IS CONSENT FORM SIGNED FOR HIV TESTING? YAB HIV 1 13:32:00* Test Item Value Reference Range Interpretation Comme nts AB HIV 1 2 (test code = LCF02OJ) NONREACTIVE NONREACTIVE Done by [employer] HIV Ag/Ab Combo Screen IS CONSENT FORM SIGNED FOR HIV TESTING? YAG HEPATITIS B [id number] 12:53:00* Test Item Value Reference Range Interpretation Comme nts AG HEPATITIS B SURFACE (test code = HBSAG) NONREACTIVE NONREACTIVE IS CONSENT FORM SIGNED FOR HIV TESTING? YAB HEPATITIS C [id number] 12:53:00* Test Item Value Reference Range Interpretation Comme nts AB HEPATITIS C (test code = HCVAB) NONREACTIVE SIGNAL TO CUTOFF (test code = CUTOFF) <0.80 IS CONSENT FORM SIGNED FOR HIV TESTING? YAB [id number] 12:53:00* Test Item Value Reference Range Interpretation Comme nts AB TREPONEMA (test code = TREPAB) NONREACTIVE NONREACTIVE IS CONSENT FORM SIGNED FOR HIV TESTING? YAB HIV 1 12:53:00* Test Item Value Reference Range Interpretation Comme nts AB HIV 1 2 (test code = COT71JL) NONREACTIVE IS CONSENT FORM SIGNED FOR HIV TESTING? YCOVID 19 Asymptomatic IH [id number] 12:51:00* Test Item Value Reference Range Interpretation Comme nts COVID 19 Asymptomatic IH AG (test code = COVNONPUIAG) NEGATIVE NEGATIVE This test has be en authorized only for the detection ofproteins from SARS-CoV-2, not for any other viruses orpathogens. Negative results should be treated as presumptive andconfirmed with a molecular assay, if necessary for patientmanagement. Negative results do not rule out COVID-19 andshould not be used as the sole basis for treatment orpatient management decisions, including infection controldecisions. Negative results should be considered in thecontext of a patient's recent exposures, history and thepresence of clinical signs and symptoms consistent withCOVID-19. This test has not been FDA cleared or approved; the test hasbeen authorized by FDA under an Emergency Use Authorization(EUA) for use by laboratories certified under the CLIA thatmeet the requirements to perform moderate, high or waivedcomplexity tests. This test is authorized for use at thePoint of Care (POC), i.e., in patient care settingsoperating under a CLIA Certificate of Waiver, Certificate ofCompliance, or Certificate of Accreditation. This test is only authorized for the duration of thedeclaration that circumstances exist justifying theauthorization of emergency use of in vitro diagnostic testsfor detection and/or diagnosis of COVID-19 under Zjqveef746(b)(1) of the Act, 21 U.S.C. 360bbb-3(b)(1), unless theauthorization is terminated or revoked sooner. CBC W/AUTO [id number] 12:13:00* Test Item Value Reference Range Interpretation Comme nts WHITE BLOOD CELL (test code = WBC) [...] pg 27.3-33.9 L MEAN CELL HGB CONCETRATION ( test code = MCHC) 31.9 gm/dL 32.0-34.2 L RED CELL DISTRIBUTION WIDTH (test code = RDW) 17.7 % 12.2-16.3 H PLATELET COUNT (test code = PLT) 212 K/mm3 134-363 N MEAN PLATELET VOLUME (test c ode = MPV) 11.1 fL 9.2-12.7 N NEUTROPHIL % (test code = NT%) 65.1 [...] = BA#) 0.0 K/mm3 RBC MORPHOLOGY REQUIRED (silvino t code = RBCM) NORMAL NORMAL PLATELET MORPHOLOGY REQUIRED (test code = PLTMR) NORMAL NORMAL RUPTURE OF [id number] 12:03:00* Test Item Value Reference Range Interpretation Comme nts RUPTURE OF MEMBRANES (test c ode = ROM) RUPTURED UA RFLX MICR CULT IF [id number] 04:13:00* Test Item Value Reference Range Interpretation Comme nts UA COLOR (test code = COLU) YELLOW YELLOW UA APPEARANCE (test code = APPU) CLEAR CLEAR UA GLUCOSE DIPSTICK (test co de = DGLUU) NEGATIVE NEG UA BILIRUBIN DIPSTICK (test code = BILU) NEGATIVE NEG UA KETONE DIPSTICK (test cod e = KETU) NEGATIVE NEG UA SPECIFIC GRAVITY (test co de = SGU) 1.005 1.001-1.035 N UA BLOOD DIPSTICK (test code = NADJA) NEG NEG UA PH DIPSTICK (test code = LIBRA) 7.0 5-9 UA PROTEIN DIPSTICK (test co de = PROU) NEGATIVE NEG UA UROBILINIOGEN DIPSTICK (test code = URO) NEGATIVE mg/dL NEG UA NITRITE DIPSTICK (test co de = PREMA) NEG NEG UA LEUKOCYTE ESTERASE DIPSTI CK (test code = LEUU) 3+ NEG A UA WBC (test code = WBCU) 0-2 #/hpf NONE SEEN UA RBC (test code = RBCU) 0-2 #/hpf NONE SEEN UA EPITHELIAL CELLS (test co de = EPIU) RARE #/HPF RARE-FEW UA BACTERIA (test code = BACU) MODERATE /HPF RARE-FEW A UA MUCUS (test code = MUCU) RARE NONE SEEN Indication for culture: Suprapubic PainSpecimen Description: CLEAN CATCHCBC W/AUTO [id number] 23:41:00* Test Item Value Reference Range Interpretation Comme nts WHITE BLOOD CELL (test code = WBC) [...] pg 27.3-33.9 L MEAN CELL HGB CONCETRATION ( test code = MCHC) 32.0 gm/dL 32.0-34.2 N RED CELL DISTRIBUTION WIDTH (test code = RDW) 20.8 % 12.2-16.3 H PLATELET COUNT (test code = PLT) 219 K/mm3 134-363 N MEAN PLATELET VOLUME (test c ode = MPV) 10.6 fL 9.2-12.7 N NEUTROPHIL % (test code = NT%) 62.5 [...] = BA#) 0.0 K/mm3 RBC MORPHOLOGY REQUIRED (silvino t code = RBCM) NORMAL NORMAL PLATELET MORPHOLOGY REQUIRED (test code = PLTMR) NORMAL NORMAL POCT URINALYSIS W SPECIFIC [id number] 18:01:00* Test Item Value Reference Range Interpretation Comme nts POCT U SP GRAV (test code = 3255) . 1.005-1.025 POCT PH U (test code = 3254) . 5-8 POCT U LEUK EST (test code = 3263) . Negative - N egative POCT U NIT (test code = 3262) . Negative - Negati ve POCT U PROT (test code = 3259) trace Negative - Negat caty POCT U GLU (test code = 3256) neg Negative - Negati ve POCT U KETONE (test code = 3258) . Negative - Neg ative POCT U UROBILI (test code = 3260) . 0.2-1 POCT U BILI (test code = 3261) . Negative - Negat caty POCT U BLD (test code = 3257) . Negative - Negati ve POCT U COLOR (test code = 3266) POCT U APPEAR (test code = 3267) [facility] CYJKERT3247-33-98 12:19:00* Test Item Value Reference Range Interpretation Comme nts URINE CULTURE (test code = 630-4) 10,000 - 100,000 CFU/mL mixed aerobic organisms - suggests endogenous microbial contamination EFE (test code = EFE) <50,000 CFU/mL [facility] DallasGC & CHLAMYDIA AMPLIFIED [id number] 18:41:00* Test Item Value Reference Range Interpretation Comme nts C. trachomatis Nucleic Acid (test code = 96882-1) Negative Negative N. gonorrhoeae Nucleic Acid (test code = 63047-8) Negative Negative EFE (test code = EFE) Reliable results a re dependent on adequate specimen collection. ? A [...] trachomatis and/or Neisseria gonorrhoeae NAAT. Lab Interpretation (test code = 68669-6) Normal [facility] DallasTRICHOMONAS AMPLIFIED [id number] 18:36:00 * Test Item Value Reference Range Interpretation Comme nts Trichomonas Nucleic Acid (test code = 28225-3) Negative Negative EFE (test code = EFE) Reliable results a re dependent on adequate specimen collection. ? A [...] data available to the clinician. Lab Interpretation (test code = 33901-6) Normal [facility] DallasRUBELLA SCREEN (ALEJANDRO) [id number] 17:32:00 * Test Item Value Reference Range Interpretation Comme [facility] Rubella screen IgG (test code = 8405693635) Positive Negative EFE (test code = EFE) Positive - Indicat es the patient was exposed to Rubella through infection or vaccination.Negative - Indicates the patient could be susceptible to Rubella infection.Equivocal - A second specimen should be sent. [facility] DallasVZV ANTIBODY [id number] 17:32:00* Test Item Value Reference Range Interpretation Comme [facility] VZV IgG antibody (test code = 82175-1) Negative Negative EFE (test code = EFE) Positive - Indicat es the patient was exposed to VZV through infection or vaccination.Negative - Indicates the patient could be susceptible to VZV infection.Equivocal - A second specimen should be sent for testing. [facility] ONLY - SYPHILIS IGG/[id number] 16:34:00* Test Item Value Reference Range Interpretation Comme [facility] Syphilis IgG/IgM (test code = 73668-2) Non-reactive Non-reactive EFE (test code = EFE) Non-reactive - No serologic evidence of T. pallidum infection. Cannot exclude incubating or early syphilis. Submit a second specimen in 2-4 weeks if syphilis is clinically suspected. Equivocal - Further testing to follow. Reactive - Further testing to follow. Lab Interpretation (test code = 83666-4) Normal [facility] DallasSARS-COV-2 [id number] 06:44:00* Test Item Value Reference Range Interpretation Comme [facility] CoV-2 IgG (test code = 48913-1) Negative Negative Negative result does not rule out acute SARS-CoV-2 infection. Clinical correlation as well as molecular diagnostic test are recommended to rule out acute infection if clinically indicated. EFE (test code = EFE) This test has been approved by FDA for emergency use.This test has been approved by FDA for emergency use. Lab Interpretation (test code = 66476-4) Normal [facility] DallasHI 1/2 AG-AB WITH [id number] 06:13:00* Test Item Value Reference Range Interpretation Comme nts HIV Semi-quantitative (test code = 11586-3) Negative Negative EFE (test code = EFE) Non-reactive for HIV-1 antigen and HIV-1/HIV-2 antibodies. ?No laboratory evidence of HIV infection. ?Repeat in 2-4 weeks if acute HIV infection is suspected. [facility] DallasHEPATITIS B SURFACE [id number] 04:29:00 * Test Item Value Reference Range Interpretation Comme nts HBsAg Semi-Quantitative (silvino t code = 5195-3) Negative Negative [facility] DallasPRENATAL WORKUP, BLOOD [id number] 04:26:11 * Test Item Value Reference Range Interpretation Comme nts ABO & RH (test code = 20) O POSITIVE Performed at [facility] Blood [address] Free: [phone] No. [id number] IAT (test code = 1185) Negative Performed at [facility] Laboratory [facility] Blood [address] Free: [phone] No. [id number] [facility] DallasPOCT URINALYSIS W/O SPECIFIC [id number] 18:27:00* Test Item Value Reference Range Interpretation Comme nts POCT PH U (test code = 3254) 7 mg/dl 5-8 POCT U LEUK EST (test code = 3263) neg Negative - Negative POCT U NIT (test code = 3262) neg Negative - Negati ve POCT U PROT (test code = 3259) trace Negative - Negat caty POCT U GLU (test code = 3256) normal Negative - Negati ve POCT U KETONE (test code = 3258) neg Negative - Neg ative POCT U BLD (test code = 3257) neg Negative - Negati ve [facility] DallasPOCT URINALYSIS W/O SPECIFIC [id number] 18:27:00* Test Item Value Reference Range Interpretation Comme nts POCT PH U (test code = 3254) 7 mg/dl 5-8 POCT U LEUK EST (test code = 3263) neg Negative - Negative POCT U NIT (test code = 3262) neg Negative - Negati ve POCT U PROT (test code = 3259) trace Negative - Negat caty POCT U GLU (test code = 3256) normal Negative - Negati ve POCT U KETONE (test code = 3258) neg Negative - Neg ative POCT U BLD (test code = 3257) neg Negative - Negati ve [facility] URINALYSIS W/O SPECIFIC [id number] 18:27:00* Test Item Value Reference Range Interpretation Comme nts POCT PH U (test code = 3254) 7 mg/dl 5-8 POCT U LEUK EST (test code = 3263) neg Negative - Negative POCT U NIT (test code = 3262) neg Negative - Negati ve POCT U PROT (test code = 3259) trace Negative - Negat caty POCT U GLU (test code = 3256) normal Negative - Negati ve POCT U KETONE (test code = 3258) neg Negative - Neg ative POCT U BLD (test code = 3257) neg Negative - Negati ve [facility] URINALYSIS W/O SPECIFIC [id number] 18:27:00* Test Item Value Reference Range Interpretation Comme nts POCT PH U (test code = 3254) 7 mg/dl 5-8 POCT U LEUK EST (test code = 3263) neg Negative - Negative POCT U NIT (test code = 3262) neg Negative - Negati ve POCT U PROT (test code = 3259) trace Negative - Negat caty POCT U GLU (test code = 3256) normal Negative - Negati ve POCT U KETONE (test code = 3258) neg Negative - Neg ative POCT U BLD (test code = 3257) neg Negative - Negati ve [facility] [id number] 18:27:00* Test Item Value Reference Range Interpretation Comme nts POCT PH U (test code = 3254) 7 mg/dl 5-8 POCT U LEUK EST (test code = 3263) neg Negative - Negative POCT U NIT (test code = 3262) neg Negative - Negati ve POCT U PROT (test code = 3259) trace Negative - Negat caty POCT U GLU (test code = 3256) normal Negative - Negati ve POCT U KETONE (test code = 3258) neg Negative - Neg ative POCT U BLD (test code = 3257) neg Negative - Negati ve [facility] URINALYSIS W/O SPECIFIC [id number] 18:27:00* Test Item Value Reference Range Interpretation Comme nts POCT PH U (test code = 3254) 7 mg/dl 5-8 POCT U LEUK EST (test code = 3263) neg Negative - Negative POCT U NIT (test code = 3262) neg Negative - Negati ve POCT U PROT (test code = 3259) trace Negative - Negat caty POCT U GLU (test code = 3256) normal Negative - Negati ve POCT U KETONE (test code = 3258) neg Negative - Neg ative POCT U BLD (test code = 3257) neg Negative - Negati ve [facility] URINALYSIS W/O SPECIFIC [id number] 18:27:00* Test Item Value Reference Range Interpretation Comme nts POCT PH U (test code = 3254) 7 mg/dl 5-8 POCT U LEUK EST (test code = 3263) neg Negative - Negative POCT U NIT (test code = 3262) neg Negative - Negati ve POCT U PROT (test code = 3259) trace Negative - Negat caty POCT U GLU (test code = 3256) normal Negative - Negati ve POCT U KETONE (test code = 3258) neg Negative - Neg ative POCT U BLD (test code = 3257) neg Negative - Negati ve [facility] [id number] 18:26:00* Test Item Value Reference Range Interpretation Comme nts POCT PREG (test code = 1605) Positive On board controls acceptable with C Line (test code = 3574) No POCT PREG LOT # (test code = 3575) POCT PREG TEST DATE ( test code = 3576) [facility] [id number] 18:26:00* Test Item Value Reference Range Interpretation Comme nts POCT PREG (test code = 1605) Positive On board controls acceptable with C Line (test code = 3574) No POCT PREG LOT # (test code = 3575) POCT PREG TEST DATE ( test code = 3576) [facility] DallasPONC [id number] 18:26:00* Test Item Value Reference Range Interpretation Comme nts POCT PREG (test code = 1605) Positive On board controls acceptable with C Line (test code = 3574) No POCT PREG LOT # (test code = 3575) POCT PREG TEST DATE ( test code = 3576) [facility] [id number] 18:26:00* Test Item Value Reference Range Interpretation Comme nts POCT PREG (test code = 1605) Positive On board controls acceptable with C Line (test code = 3574) No POCT PREG LOT # (test code = 3575) POCT PREG TEST DATE ( test code = 3576) [facility] [id number] 18:26:00* Test Item Value Reference Range Interpretation Comme nts POCT PREG (test code = 1605) Positive On board controls acceptable with C Line (test code = 3574) No POCT PREG LOT # (test code = 3575) POCT PREG TEST DATE ( test code = 3576) [facility] [id number] 18:26:00* Test Item Value Reference Range Interpretation Comme nts POCT PREG (test code = 1605) Positive On board controls acceptable with C Line (test code = 3574) No POCT PREG LOT # (test code = 3575) POCT PREG TEST DATE ( test code = 3576) [facility] [id number] 18:26:00* Test Item Value Reference Range Interpretation Comme nts POCT PREG (test code = 1605) Positive On board controls acceptable with C Line (test code = 3574) No POCT PREG LOT # (test code = 3575) POCT PREG TEST DATE ( test code = 3576) [facility] BHCG (QUANTITATIVE)2019-10-06 23:36:00* Test Item Value Reference Range Interpretation Comme nts BETA HCG (test code = 1194024851) See_Comment [Automated messa ge] The system which generated this result transmitted reference range: Non- female and male patients: <5 mIU/mL. The reference range was not used to interpret this result as normal/abnormal. EFE (test code = EFE) Gestational Age ?Range (mIU/mL) 1-10 ?Weeks ?67-46054982-39 Weeks ?96752-28410066-88 Weeks ?0643-52583126-44 Weeks ?5145-868564 Biotin has been reported to cause a negative bias, interpret results relative to patient's use of biotin. [facility]. METABOLIC PANEL (22335)2019-10-06 22:52:00* Test Item Value Reference Range Interpretation Comme nts NA (test code = 8172559311) 134 mmol/L 135-145 L K (test code = 3314550069) 3.8 mmol/L 3.5-5 CL (test code = 4614114280) 104 mmol/L 98-108 CO2 TOTAL (test code = 3242193328) 19 mmol/L 23-31 L AGAP (test code = 4984246769) 2-16 BUN (test code = 5614290458) 9 mg/dL 7-23 GLUCOSE (test code = 2376380759) 90 mg/dL 70-110 CREATININE (test code = 2950921456) 0.54 mg/dL 0.5-1.04 TOTAL BILI (test code = 7095388300) 0.4 mg/dL 0.1-1.1 CALCIUM (test code = 2522599278) 9.5 mg/dL 8.6-10.6 T PROTEIN (test code = 6678604747) 8.7 g/dL 6.3-8.2 H ALBUMIN (test code = 3607120508) 4.6 g/dL 3.5-5 ALK PHOS (test code = 1008870304) 66 U/L 34-122 ALTv (test code = 1742-6) 12 U/L 5-35 AST(SGOT) (test code = 4973119346) 25 U/L 13-40 EFE (test code = EFE) Association of [...] or abnormalities in imaging tests). Lab Interpretation (test code = 03127-3) Abnormal [facility] DallasLipase [id number] 22:52:00* Test Item Value Reference Range Interpretation Comme nts LIPASE (test code = 1055352524) 157 U/L 0-220 Lab Interpretation (test cod e = 62189-3) Normal [facility] DallasUrinalysis2020-08-06 22:48:00* Test Item Value Reference Range Interpretation Comme nts APPEARANCE (test code = 9152725105) Hazy Clear A COLOR (test code = 8167164192) Yellow Yellow PH (test code = 7594752150) 4.8-8.0 SP GRAVITY (test code = 1037869513) 1.003-1.030 GLU U QUAL (test code = 0569945091) Normal Normal BLOOD (test code = 8815440683) Negative Negative KETONES (test code = 0230869275) 80 mg/dL Negative A PROTEIN (test code = 2887-8) Negative Negative UROBILIN (test code = 6001062259) Normal Normal BILIRUBIN (test code = 4055683997) Negative Negative NITRITE (test code = 5031945531) Negative Negative LEUK IRMA (test code = 1159856653) 25/uL Negative A RBC/HPF (test code = 9755341479) See_Comment [Automated messa ge] The system which generated this result transmitted reference range: 0 - 3 HPF. The reference range was not used to interpret this result as normal/abnormal. WBC/HPF (test code = 2644926113) See_Comment [Automated messa ge] The system which generated this result transmitted reference range: 0 - 5 HPF. The reference range was not used to interpret this result as normal/abnormal. BACTERIA (test code = 9912850433) Many Negative A MUCOUS (test code = 1770591487) Marked Negative LPF A SQ EPITH (test code = 1974447419) HPF Lab Interpretation (test code = 63913-6) Abnormal [facility] with Vuymntctmnzp8557-64-36 22:33:00* Test Item Value Reference Range Interpretation Comme nts WBC (test code = 6690-2) See_Comment [Automated messa ge] The system which generated this result transmitted reference range: 4.50 - 13.50 10*3/?L. The reference range was not used to interpret this result as normal/abnormal. RBC (test code = 789-8) See_Comment [Automated messa ge] The system which generated this result transmitted reference range: 4.10 - 5.10 10*6/?L. The reference range was not used to interpret this result as normal/abnormal. HGB (test code = 718-7) 8.8 g/dL 12-16 L HCT (test code = 4544-3) 31.0 % 36-45 L MCV (test code = 787-2) 63.8 fL 78-95 L MCH (test code = 785-6) 18.1 pg 26-32 L MCHC (test code = 786-4) 28.4 g/dL 32-36 L RDW-SD (test code = 53613-6) 45.6 fL 38.5-49 RDW-CV (test code = 788-0) 20.9 % 11.5-14 H PLT (test code = 777-3) See_Comment H [Automated messa ge] The system which generated this result transmitted reference range: 135 - 361 10*3/?L. The reference range was not used to interpret this result as normal/abnormal. MPV (test code = 62532-1) 10.2 fL 9.4-13.3 NRBC/100 WBC (test code = 0279760029) See_Comment [Automated me ssage] The system which generated this result transmitted reference range: 0.0 - 10.0 /100 WBCs. The reference range was not used to interpret this result as normal/abnormal. NRBC x10^3 (test code = 0533556284) <0.01 See_Comment [Automated messa ge] The system which generated this result transmitted reference range: 10*3/?L. The reference range was not used to interpret this result as normal/abnormal. GRAN MAT (NEUT) % (test code = 770-8) 71.3 % IMM GRAN % (test code = 1659859142) 0.20 % LYMPH % (test code = 736-9) 20.7 % MONO % (test code = 5905-5) 7.1 % EOS % (test code = 713-8) 0.1 % BASO % (test code = 706-2) 0.6 % GRAN MAT x10^3(ANC) (test code = 4587301579) 5.89 10*3/uL 1.5-10.3 IMM GRAN x10^3 (test code = 2322534929) <0.03 0-0.06 LYMPH x10^3 (test code = 731-0) 1.71 10*3/uL 0.7-7.4 MONO x10^3 (test code = 742-7) 0.59 10*3/uL 0-0.5 H EOS x10^3 (test code = 711-2) <0.03 0-0.4 BASO x10^3 (test code = 704-7) 0.05 10*3/uL 0-0.1 Lab Interpretation (test code = 60120-7) Abnormal [facility] Notes Date/Time Note Provider Source 2020-05-22 06:33:00 LCoqgcxelrm98584793q Hh76cKxSstcJGwThCV4hBGeBxvb+U lOhOU038dPS2LtxBQ32LNckbDco+hj5h9I6123-93-36G18:3 3:00 [facility] [place] [facility])OB Disch PostpartumREPORT#:[id number] REPORT STATUS: SignedDATE:05/22/20 TIME: 632 PATIENT: JAMEEL CASTILLO UNIT #: [id number]#: [id number] [address] [birth year] AGE: 20 SEX: F ATTEND[facility] AUTHOR: Bryant Delgado MD * ALL edits or amendments must be made on the electronic/computer document * Subjective SubjectivePatient reports: Patient reports: Yes: normal lochia, pain management effective, tolerating po well, voiding well, voiding without pain, tolerating ambulation. No: complaints. Comments:requestring to go home today Objective GeneralVS:Vital SignsDate Temp Pulse Resp B/P B/P Mean Pulse Ox DgD545/-05/22 98.0-98.2 76-203 16-20 110-170/64-85 85.0-109.0 Last Documented: Result Date Time B/P 110/85 05/22 0035 Temp 98.0 05/22 0035 Pulse 88 05/22 0035 Resp 20 05/22 0035 B/P Mean 95.0 05/21 0814 PATIENT WEIGHT: Weight (lb): 152Weight (oz): Weight (kg): 68.946 Physical ExamNeuro: Exam: alert, oriented x3, normal speechAbdomen: post gravid, soft, no abnormal tendernessUterus: involution appropriate, non-tenderFundus: firm, below the umbilicus, non-tender Discharge Summary GeneralHospital course: spontaneous labor, augmentation of labor, spontaneous vag delivery, nml postop/postpart careDischarge to: Home/Self CareDischarge diagnosis: full-term uncomp delivery, anemia (acute blood loss)Baby A: Gender: female 1 minute: 8 5 minutes: 9 Discharge InstructionsDiet: RegularActivity: per routine PP instructionsAdditional discharge routines: PCP Follow-Up (with dr delgado in 2 weeks)Discharge meds:Continue taking these medications:PNV WITH FE FUMARATE/FA () 1 EACH TAB 1 TABLET ORAL DAILY. FERROUS SULFATE (FEOSOL) 325 MG TAB 325 MILLIGRAM ORAL DAILY. Start taking the following new medications:HYDROcodone/APAP (NORCO 5/325) 1 TAB TAB 1 TABLET ORAL EVERY 6 HOURS NEEDED. as needed for LACERATION PAIN Qty = 15 No Refills IBUPROFEN (MOTRIN) 600 MG TAB 600 MILLIGRAM ORAL EVERY 6 HOURS NEEDED. as needed for LACERATION PAIN Qty = 25 No Refills DOCUSATE SODIUM (COLACE) 100 MG CAP 100 MILLIGRAM ORAL 0900 2100. as needed for CONSTIPATION Qty = 20 No Refills Add'l Follow-up AppointmentsPCP follow-up: PCP: Bryant Delgado MD PCP follow up timeframe: In 2 wks Special instructions:per routine pp instructions and precautions at 0634 RPT #:[id number] OF REPORT OBObstetric xxmj1621-63-42E67:33:00F.YHRI41512003-4123AWXeenp able for patient vamsVDWHFURYWENTDT9389-67-70Y04:35:04 [facility] 2020-05-21 06:33:00 NFmjiqasxgy92416806d R8gyLX0bDqGIyLq/2yzimK80ouaRU YgXCMi5RV+xn6jVrZiaPV6O/HeshF4D8wI2800-83-21R85:3 3:00 [facility] ([facility])OB Delivery NoteREPORT#:[id number] REPORT STATUS: SignedDATE:05/21/20 TIME: 632 PATIENT: JAMEEL CASTILLO UNIT #: [id number]#: [id number] [facility]: [facility] AGE: 20 SEX: F ATTEND: Bryant Delgado [facility] AUTHOR: Carlton Ramirez MD * ALL edits or amendments must be made on the electronic/computer document * OB Delivery Pre-deliveryAdmission EGA: Weeks: 37 Days: 5 Baby A InformationBaby A information Gender: female 1 minute: 8 5 minutes: 9 Vaginal DeliveryVaginal delivery: Labor: spontaneousLacerations: Perineal laceration(s): 1st Degree w/vaginaNote dictated: Yes Blood Loss/DetailsBlood loss at delivery: 300 cc at 0634 RPT #:[id number] OF REPORT OBObstetric edxg7201-12-64Y26:33:00F.XZNH63202011-0427LVRsphd able for patient owzrEMWOTPDJCMQSPW3857-70-31O35:34:18 [facility] 2020-05-21 06:30:00 TSqwubcflwa33420392x n95V+ddZeU9RjB0gNGgImyUnEqUVT s7rAP9mKqNXYjFgsZAYxMW0+6WF1Qg/UYy1233-94-97A49:3 0:342154-3119 [facility] [address] PATIENT NAME: JAMEEL CASTILLO ADMIT DATE: 05/20/20ACCOUNT NO: [id number] ROOM NO: [facility] AGE: 20 SEX: F ADMITTING PHYSICIAN: Bryant Delgado MD ATTENDING PHYSICIAN: Bryant Delgado MD OPERATION DATE: 05/21/2020 PREOPERATIVE DIAGNOSES: A 38 and 2/7th weeks' intrauterine , prematurerupture of membranes. POSTOPERATIVE DIAGNOSES: A 38 and 2/7th weeks' intrauterine ,premature rupture of membranes. PROCEDURE: Vertex vaginal delivery. SURGEON: Carlton Ramirez MD LEAD CUSTODIAN: ANESTHESIA: Epidural. ESTIMATED BLOOD LOSS: 300 mL. BRIEF HISTORY: The patient is an 20-year-old primigravida who has a history ofiron deficiency anemia. Prepregnancy, she has had blood transfusions. Shepresented to the hospital, leaking fluid that was ROM positive and she wasinitially given Pitocin with no response. We then switched to Cytotec and shereceived 2 doses of Cytotec and went into active labor. An epidural was placedfor pain control. She was given penicillin in light of unknown GBS status andshe made steady progress with a reactive tracing category 1 and was ready fordelivery. PROCEDURE NOTE: The head was delivered over an intact perineum. The mouth andnares were suctioned. There was a tight nuchal cord x1. The shoulders werethen easily delivered and an 8 and 9 female infant delivered. Mom cut thecord. Cord blood was collected. There was a 3-vessel cord. The placenta wasdelivered and sent to pathology. After delivery of the placenta, she had asmall first-degree vaginal tear, which was repaired with #1 lnwsao-eh-bploc 2-0Vicryl suture. She had a firm uterus with stable vital signs. A rectalexamination confirmed rectal patency and she will be recovered in the labor anddelivery suite prior to being transferred to the floor. Dictated By: Carlton Ramirez MD WT: OP:F.SONYA/ADÁN/NTSDD: 05/21/2020 06:30:48DT: 05/21/2020 10:24:22Conf#: [id number]/[facility]#: [id number] PATIENT NAME: JAMEEL CASTILLO Authenticated by Carlton Ramirez MD On 05/24/2020 08:20:59 AM at 0821 PATIENT NAME: JAMEEL CASTILLO fvbrwy0735-88-88N18:24:00F.OYW27431550-7079UVKqhx lable for patient zpnjZMGCUZHXLEJPCH6007-44-93W79:21:33 [facility] 2020-05-20 18:17:00 QNdnnybpzsm04734385S b8X45BtYBEN6YLpVDDeZKNRKiAaQL Egg1+X5IEBfeMTc9Hds69TbpvfYDeYa/eu6131-55-21S26:1 7:00 [facility] ([facility])HOUSE NURSE Consultation NoteREPORT#:[id number] REPORT STATUS: SignedDATE:05/20/20 TIME: 1816 PATIENT: JAMEEL CASTILLO UNIT #: [id number]#: [id number] ROOM[facility]BED: [facility]-ADOB: [birth year] AGE: 20 SEX: F ATTEND: Bryant Delgado MDA AUTHOR: Carlton Ramirez MD * ALL edits or amendments must be made on the electronic/computer document * History Past HistoryAllergies:Coded Allergies:No Known Allergies (05/02/20) Objective ResultsResults: scan vertex female posterior placenta erasto 11 10/07 bpp s:d 3.23 7 pounds 2 ounces 3233 grams 49% no anomalies pelvic exam 1-2 cm 70% vx forebag intact suspect high leak pitocin not doing anything d/c pit now po cytotec and pit aromin am at 1819 RPT #:[id number] OF REPORT ADOkmfjqjkzscd3607-02-02C33:17:00F.DFIN27332275-0 259AVAvailable for patient fcgtMVHQURABDXAROY6919-85-10Y60:19:54 [facility] 2020-05-20 12:03:00 OWurkqffzdn33271726S Rz+mTCElaXDmiDQHbw4jJgIFdg8Hz pv9s+Z/65GAWgqYpEgV6ofIFRMBKja2rqb2558-25-88B54:0 3:00 [facility] [place] [facility])OB Admission / H PREPORT#:[id number] REPORT STATUS: SignedDATE:05/20/20 TIME: 120 PATIENT: JAMEEL CASTILLO UNIT #: [id number]#: [id number] [facility] [place]: [birth year] AGE: 20 SEX: F ATTEND: Bryant Delagdo MDADM AUTHOR: Carlton Ramirez MD * ALL edits or amendments must be made on the electronic/computer document * OB HistoryChief complaint: suspected ruptured membHPI:20 y/o ab1 37 plus weeksprom 9.40 am todayPregnancy history: : 2 Abortus: 1 Living children: 0Current : Admission EGA (weeks) 37 Admission EGA (days) 5Procedures: transfusion prepregnancy for anemiaPast medical history: denies PMHPast surgical history: denies PSHSocial history: no alcohol use, no tobacco use, no drug useAllergiesCoded Allergies:No Known Allergies (05/02/20) Objective GeneralVS:PATIENT WEIGHT: Weight (lb): 152Weight (oz): Weight (kg): 68.237489 Physical ExamHEENT: normocephalic w/o injury, pupils equal, pupils reactive to light, no apparent hearing diff, no lesions of mouth, no lesions of throat, no nasal septum deviation, no scleral icterusCardiac: regular rate and rhythm, no clinically sig murmur, no gallops, no rubsLungs: clear to auscultation, no rales, no rhonchi, unlabored breathingAbdomen: gravid, soft, no abnormal tenderness, no guarding, no rebound tenderness, normoactive bowel soundsCervical/ exam: Dilatation (cm): 2 Effacement (%): 80 station: - 2 presentation: cephalicMembranes: Membranes: SROMLower extremities: Edema: trace Mylene's sign: negative ResultFindings/Data:Laboratory Tests 05/20 1150 Other Body Source Membranes Rupture RUPTURED Laboratory Tests: 05/20 1150 Other Body Source Membranes Rupture RUPTURED Diagnosis, Assessment Plan Diagnosis, Assessment PlanAssessment/Impression: PROM 37-38 weeks, 6 daysPlan: admit to inpatient, augmentation of labor (anti bx gbs prophylaxis) at 1206 RPT #:[id number] OF REPORT HPHistory and physical iaxxqzkjrgp3709-04-35O10:03:00F.[id number] AVAvailable for patient [id number]:07:02 [facility] 2020-05-20 12:03:00 [id number] 0lde4/8DquR4+[id number] Yb844JaeISDfaTeRlRkeZMxWtYFUSaSdp/1094-75-07K63:0 3:00 [facility])OB Admission / H PREPORT#:[id number] REPORT STATUS: SignedDATE:05/20/20 TIME: 1203 PATIENT: JAMEEL CASTILLO UNIT #: [id number]#: [id number] ROOM/BED: [facility]-ADOB: [birth year] AGE: 20 SEX: F ATTEND: Bryant Delgado [facility] AUTHOR: Carlton Ramirez MD * ALL edits or amendments must be made on the electronic/computer document * See AddendumOB HistoryChief complaint: suspected ruptured membHPI:20 y/o ab1 37 plus weeksprom 9.40 am todayPregnancy history: : 2 Abortus: 1 Living children: 0Current : Admission EGA (weeks) 37 Admission EGA (days) 5Procedures: transfusion prepregnancy for anemiaPast medical history: denies PMHPast surgical history: denies PSHSocial history: no alcohol use, no tobacco use, no drug useAllergiesCoded Allergies:No Known Allergies (05/02/20) Objective GeneralVS:PATIENT WEIGHT: Weight (lb): 152Weight (oz): Weight (kg): 68.024676 Physical ExamHEENT: normocephalic w/o injury, pupils equal, pupils reactive to light, no apparent hearing diff, no lesions of mouth, no lesions of throat, no nasal septum deviation, no scleral icterusCardiac: regular rate and rhythm, no clinically sig murmur, no gallops, no rubsLungs: clear to auscultation, no rales, no rhonchi, unlabored breathingAbdomen: gravid, soft, no abnormal tenderness, no guarding, no rebound tenderness, normoactive bowel soundsCervical/ exam: Dilatation (cm): 2 Effacement (%): 80 station: - 2 presentation: cephalicMembranes: Membranes: SROMLower extremities: Edema: trace Mylene's sign: negative ResultFindings/Data:Laboratory Tests 05/20 115 Other Body Source Membranes Rupture RUPTURED Laboratory Tests: 05/20 1150 Other Body Source Membranes Rupture RUPTURED Diagnosis, Assessment Plan Diagnosis, Assessment PlanAssessment/Impression: PROM 37-38 weeks, 6 daysPlan: admit to inpatient, augmentation of labor (anti bx gbs prophylaxis) at 1206 Addendum 1: 05/20/20 1822 by Carlton Ramirez MD prom per admitting rn with positive pom plus at 1823 RPT #:[id number] OF REPORT HPHistory and physical [id number]:03:00F.[id number] AVAvailable for patient [id number]:23:24 [facility] 2020-05-04 10:01:00 [id number] M/69AmlC7qpAbWkgimAKWiugCoYNS B/Am4IJvXm9YfZgqQ5+SOc8byki6Nz1J8Y4000-54-94W57:0 1:[id number] [facility] [address] PATIENT NAME: JAMEEL CASTILLO ADMIT DATE: 05/02/20ACCOUNT NO: [id number] ROOM NO: AGE: 20 SEX: F ADMITTING PHYSICIAN: ATTENDING PHYSICIAN: Bryant Delgado MD TRIAGE EVALUATION: 05/02/2020 For evaluation in OB ED on 05/02/2020, with discharge just after midnight on05/03/2020 by Leslye Amato MD, triage hospitalist, seen per request of . HISTORY OF PRESENT ILLNESS: The patient is an 20-year-old G2, P0-0-1-0 withunsure last menstrual period, and estimated date of confinement 06/02/2020. Shepresented at 35 and 1/7th weeks complaining of palpitations for very briefepisodes on the evening of evaluation. She denied prior similar episodes. Shedenied history of anxiety. She drank a caffeine soda, but no coffee, only 2 or 3 bottles of water during the day and denied illicit drugs. She denied history of heart disease, but does report history of anemia prior to thepregnancy as well as during the . She states she has had a hematologyworkup and has had 2 iron transfusions during the and is currentlytaking once a day iron. She also reported onset of cramping at approximately8:00 p.m. on day of evaluation. She stated initially the cramps were 6/10, butat the time of evaluation in OB ED, were 0/10. She states she is having regularbowel movements. She did have some diarrhea a few days prior, but none in thelast day or two. She had cramping at the time of the diarrhea as well. [place], she had a sandwich from [employer]; for lunch, Estonian toast from [employer].She denies headache, vision changes, or other preeclampsia symptoms. She deniesfever, chills, nausea, vomiting, current diarrhea, constipation, or dysuria.She denied cough, sore throat, shortness of breath, loss of taste and smell,diarrhea, fever, or other COVID symptoms. She has not previously been diagnosedwith COVID. She has never been tested for COVID. Her care began with OB in [place] at approximately 8 weeks' gestation, but due to her anemiaissues, she transferred care to Dr. Delgado at approximately 27 weeks. Her nextvisit with Dr. Delgado is on 05/04/2020. As stated above, she had an workup foranemia with the bell cleaner, which the patient states is negative. Her secondof 2 of iron transfusions was approximately one month ago. She has been ondaily iron since that time. She states Dr. Delgado also told her recently thatshe had too much fluid around the baby and that there was an abnormal blood flowto the placenta. Those were diagnoses of April 27. She is to have anotherultrasound on 05/04/2020 and was told if either or both conditions persisted,she would be admitted for delivery. PAST MEDICAL HISTORY: Anemia prior to the as well as during pregnancyas stated above with iron transfusions. PAST SURGICAL HISTORY: Negative. PATIENT NAME: JAMEEL CASTILLO ALLERGIES: NO KNOWN DRUG ALLERGIES. MEDICATIONS: vitamins, daily iron. OBSTETRICAL HISTORY: First trimester spontaneous in 2019. No D and Crequired. GYNECOLOGIC HISTORY: Menarche at age 12 with monthly cycles lasting 7 days,heavy with moderate bleeding. The patient reports history of chlamydiadiagnosed in 2019 prior to the . She and her partner were treated andall testing has been negative since for chlamydia as well as other STDs. Shehas not previously had a Pap smear due to her age. SOCIAL HISTORY: The patient denies tobacco or illicit drug use. She reportsoccasional prepregnancy alcohol use. She lives with her maternal grandmother.She is still involved with the father of the . He is a 40-mesy-rfswvjkmgh male. She does not work outside the home. 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 FAMILY HISTORY: Mother and father without health problems. Maternalgrandparents both with diabetes. Paternal grandmother without health problems.Paternal grandfather with COVID in hospital acquired [place]. The patient has 6 half siblings, all living andhealthy. She denies any known blood disorders in anyone in her family. Shedoes not know what her diagnosis is for related to the anemia. The patientdenies history of mental retardation or defects in her family or herpartner's family. REVIEW OF SYSTEMS: Ten-point review of systems is negative except as statedabove. PHYSICAL EXAMINATION:GENERAL: The patient is a well-nourished, well-developed young female, in noacute distress, lying on triage stretcher in OB ED.VITAL SIGNS: Height 5 feet 6 inches, weight prior to the 132 poundsand at most recent visit to clinic 150 pounds. Blood pressure 129/73, , respirations 18, temperature 98.6, and O2 saturation 98% to 99%.HEAD AND NECK: Within normal limits without lymphadenopathy or thyromegaly.CHEST: Clear to auscultation bilaterally.HEART: With regular rate and rhythm.BREASTS: Deferred.ABDOMEN: Soft, nontender, gravid with a fundal height of 37 cm.PELVIC: Cervix is 1 cm dilated, 50% effaced, and -2 station, cephalic, andintact.EXTREMITIES: Without edema. Bilateral patellar reflexes, 2+.NEUROLOGIC: Nonfocal. The patient is awake, alert, and oriented x3. NST was category 1 for gestational age with baseline heart tones in otp218m, multiple 15 x 15 accelerations, no decelerations, and no contractionsnoted. LABORATORY DATA: White blood cell count 7.5, hemoglobin 12.0, hematocrit 37.5,and platelets 219,000. ASSESSMENT/PLAN: This is an 20-year-old G2, P0-0-1-0 at 35 and 17th weeks, PATIENT NAME: JAMEEL CASTILLO who presented complaining of transient palpitations and cramping, both resolved by the time she was seen on the evening of the . No evidence of labor. No anemia by labs. Based on history, the patient was felt to have been dehydrated and she was given an IV fluid bolus of 300, then 150 an hour. She is discharged home in stable condition with reassuring status at 35 and 2/7th weeks just after midnight. She is instructed to drink at least a 100 ounces of water daily, eat frequent small meals and is encouraged to avoid fast food and instead eat healthier choices. She is to follow up with Dr. Delgado as scheduled on the . She is to call or return earlier for vaginal bleeding, leakage of fluid, decreased movements, contractions with increased force and frequency, recurrence of the palpitations or other concerns. All instructions given verbally by after questions answered. Dictated By: Leslye Amato MD WT: HP:F.SONYA/KENTON/NTSDD: 05/04/2020 10:01:49DT: 05/04/2020 11:13:08Conf#: [id number]/DID#: [id number] and Edited by Leslye Amato MD On 05/13/20 5:57:38 AM at 0645 PATIENT NAME: JAMEEL CASTILLO and physical [id number]:13:00F.[id number] VAvailable for patient [id number]:45:57 [facility]
[2023-04-20 01:09] LABS: Hematocrit 25.9 % (36.0-45.0); Lymphocytes % 43.8 % (15.3-44.8); MCV 62.3 fL (80-100); MPV 8.6 fL (7.6-11.3); Platelets 333 thou/uL (152-406); RBC Red Blood Cell Count 4.15 M/uL (3.86-4.86)
[2023-04-20 01:13] LABS: Protime INR 1.08
[2023-04-20 01:25] LABS: Potassium 3.3 mEq/L (3.5-5.1)
[2023-04-20 01:26] LABS: Specific Gravity 1.027 (1.005-1.030)
[2023-04-20 03:11] LABS: Platelet Estimate ADEQ; White Blood Cell Scan OK (OK)
[2023-04-20 03:12] LABS: Blood Morphology Comment NOTED (NOT SEEN); Hypochromasia 2+
--- NOTE | 2023-04-20 06:48 | EDPHYS ---
Physician Documentation [facility] Name: Bushra Brewer Age: 23 yrs Sex: Female : 2000 Arrival Date: 04/20/2023 Time: 00:05 Bed 7 Private MD: ED Physician Carlos Farmer HPI: 04/20 00:30 This 23 yrs old Female presents to ER via Unassigned with complaints of sb4 Vaginal Bleeding. 00:30 The patient presents with vaginal bleeding that is heavy. Onset: The symptoms/episode sb4 began/occurred 2 week(s) ago. patient reports chronic menorrhagia but states she has had extremely heavy vaginal bleeding for the past 2 weeks. states she is soaking through 3 tampons in 2 hours. states she has required blood transfusions in the past. has been seen for this several times in EDs without any formal diagnosis. has not seen a respiratory care instructor. is not on any form of control, states she has tried all forms in the past without significant reduction in bleeding. STOPER: 02:02 LMP 04/06/2023, Not km8 Historical: - Allergies: 00:35 No Known Allergies; jb4 - PMHx: 00:35 Anemia; blood transfusion; Heart Murmur; HEAVY MENSTRATION; jb4 - PSHx: 00:35 None; jb4 - Immunization history:: Adult Immunizations up to date. - Social history:: Smoking status: Reported history of juuling and/or vaping. ROS: 00:30 Positive for vaginal bleeding, menstrual abnormality, sb4 00:30 Constitutional: Negative for fever, chills, and weight loss, 00:30 All other systems are negative, Exam: 00:30 Constitutional: This is a well developed, well nourished patient who is awake, alert, sb4 and in no acute distress. Head/Face: Normocephalic, atraumatic. Eyes: Extra-ocular motions intact. Periorbital areas with no swelling, redness, or edema. ENT: Mucous membranes moist. Cardiovascular: Regular rate and rhythm with a normal S1 and S2. Respiratory: Lungs have equal breath sounds bilaterally, clear to auscultation and percussion. No rales, rhonchi or wheezes noted. No increased work of breathing, no retractions or nasal flaring. Abdomen/GI: Soft, non-tender, no distension. Skin: Warm, dry with normal turgor. Normal color with no rashes, no lesions, and no evidence of cellulitis. MS/ Extremity: Pulses equal, no cyanosis. Neurovascular intact. Full, normal range of motion. Neuro: Awake and alert, GCS 15, oriented to person, place, time, and situation. Motor strength 5/5 in all extremities. Sensory grossly intact. 03:00 : Exam negative for Speculum examination reveals moderate vaginal bleeding with sp4 clots. 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 , Vital Signs: 00:34 BP 138 / 92; Pulse 106; Resp 18; Temp 97.9(TE); Pulse Ox 100% on R/A; Weight 54.43 kg jb4 (R); Height 5 ft. 7 in. (R); 01:00 BP 112 / 84; Pulse 90; Resp 16; Pulse Ox 100% on R/A; km8 01:45 BP 123 / 88; Pulse 91; Resp 16; Pulse Ox 100% on R/A; km8 02:00 BP 125 / 75; Pulse 91; Resp 16; Pulse Ox 100% on R/A; km8 02:30 BP 119 / 82; Pulse 93; Resp 16; Pulse Ox 100% on R/A; km8 03:00 BP 112 / 53; Pulse 86; Resp 16; Pulse Ox 100% on R/A; km8 03:40 BP 127 / 78; Pulse 86; Resp 13 S; Temp 97.9(TE); Pulse Ox 100% on R/A; jw7 04:40 BP 111 / 72; Pulse 81; Resp 20 S; Temp 98.3(TE); Pulse Ox 99% on R/A; jw7 05:30 BP 103 / 62; Pulse 79; Resp 19 S; Temp 97.5(TE); Pulse Ox 100% on R/A; jw7 05:50 BP 109 / 71; Pulse 80; Resp 19 S; Temp 97.6(TE); Pulse Ox 100% on R/A; jw7 06:50 BP 98 / 64; Pulse 70; Resp 20 S; Temp 98(TE); Pulse Ox 100% on R/A; jw7 07:00 BP 100 / 62; Pulse 62; Resp 18; Pulse Ox 100% on R/A; db 08:21 BP 105 / 65; Pulse 57; Resp 18; Temp 97.4; Pulse Ox 100% on R/A; ph 09:00 BP 111 / 70; Pulse 68; Resp 18; Pulse Ox 100% on R/A; db 00:34 Body Mass Index 18.79 (54.43 kg, 170.18 cm) jb4 Bethune Coma Score: 00:45 Eye Response: spontaneous(4). Motor Response: obeys commands(6). Verbal Response: km8 oriented(5). Total: 15. MDM: 00:19 Patient medically screened. sb4 00:30 Differential diagnosis: malignancy, menometrorrhagia, Neoplasm ovarian cyst, ruptured sb4 ectopic , uterine fibroids. 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 01:50 Data reviewed: vital signs, nurses notes, lab test result(s), CBC, electrolytes, sp4 hepatic panel. 02:22 ED course: Patient has significant vaginal bleeding on pelvic exam with blood and clots sp4 present. At this time we will entertain transfer for examination by STOPER physician.. 02:54 ED course: PROCEDURE: CTAbdomen and Pelvis With Intravenous Contrast CLINICAL sp4 INDICATION: The patient is 23 years old and is Female; VAGINAL BLEEDING TECHNIQUE: Axial computed tomography images of the abdomen and pelvis with intravenous contrast. Sagittal and coronal reformatted images were created and reviewed. This CT exam was performed using one or more of the following dose reduction techniques: automated exposure control, adjustment of the mA and/or kV according to patient size, and/or use of iterative reconstruction technique. DLP: 497 mGy*cm COMPARISON: Pelvic ultrasound dated 06/23/2022. FINDINGS: LUNG BASES: Unremarkable. No mass. No consolidation. ABDOMEN: LIVER: Unremarkable. No mass. GALLBLADDER AND BILE DUCTS: Contracted gallbladder. No calcified stones. No ductal dilation. PANCREAS: Unremarkable. No mass. No ductal dilation. SPLEEN: Unremarkable. No splenomegaly. ADRENALS: Unremarkable. No mass. KIDNEYS AND URETERS: Unremarkable. No solid mass. No hydronephrosis. STOMACH AND BOWEL: Unremarkable. No obstruction. No mucosal thickening. PELVIS: APPENDIX: The appendix is seen and is within normal limits. BLADDER: Bladder is decompressed. REPRODUCTIVE: Left ovarian cyst measuring 3.2 cm. ABDOMEN and PELVIS: INTRAPERITONEAL SPACE: Unremarkable. No free air. No significant fluid collection. BONES/JOINTS: Straightening of the lumbar lordosis. No acute fracture. No dislocation. SOFT TISSUES: Unremarkable. VASCULATURE: Unremarkable. No abdominal aortic aneurysm. LYMPH NODES: Unremarkable. No enlarged lymph nodes. IMPRESSION: 1. No acute abdominal or pelvic abnormity. 2. Left ovarian cyst measuring 3.2 cm. No follow-up imaging is recommended. Reference: JACR 2019;17(2):248-254 3. Straightening of the lumbar lordosis. Findings may be positional or due to muscle spasm. . ED course: EXAM DESCRIPTION: Transvaginal Study Probe CLINICAL HISTORY: 23 years Female, VAGINAL BLEEDING COMPARISON: Report from ultrasound dated 06/23/2022. No images available at time of dictation for direct comparison. TECHNIQUE: Transvaginal images of the pelvis obtained. FINDINGS: Uterus: Anteverted, measuring 7.1 x 3.9 x 5.0 cm. No myometrial mass. Endometrium: Measures up to 0.4 cm in thickness, within normal limits. Right ovary: Measures 1.4 x 2.8 x 1.0 cm. No suspicious sonographic abnormality. Left ovary: Measures 2.5 x 3.1 x 2.8 cm and contains a cyst measuring 2.8 x 2.4 x 2.3 cm. No follow-up imaging is recommended. Adnexa: No additional abnormality. Free fluid: None identified. Duplex imaging: Vascular flow demonstrated to both ovaries. IMPRESSION: No suspicious sonographic abnormality. Electronically signed by: Fernanda Hinkle MD 04/20/2023 01:54 AM. 02:58 ED course: With pelvic exam there is significant bleeding. I was spoke with STOPER sp4 from [facility] who states that 1 way to control bleeding would be to administer 20 mg medroxyprogesterone p.o. and then start medroxyprogesterone 10 mg p.o. 3 times daily for 1 week with STOPER follow-up. At this time we do not have medroxyprogesterone available in the hospital. Secondary strategy would be to provide IV Premarin 25 mg single dose and then start Sprintec with similar control tablets daily with STOPER follow-up. We will proceed with Premarin 25 mg IV since we have this available. Will administer 2 units packed red blood cells. Then we will discharge patient with follow-up with [facility] in [facility] . Will recommend Dr. Nan Lemos MD, FACOG . 06:46 ED course: Patient improved after transfusion stable for discharge home with p.o. sp4 Sprintec for the next 30 days. Advised to see Dr. Canelo Montana at the [place] [facility] for follow up in 7 to 10 days. 04/20 00:28 Order name: Basic Metabolic Panel; Complete Time: : sb4 04/20 00:28 Order name: CBC with Diff; Complete Time: 05:22 sb4 04/20 00:28 Order name: Test, Urine; Complete Time: : sb4 04/20 00:28 Order name: Type And Screen sb4 04/20 00:29 Order name: PT-INR; Complete Time: 01:14 sb4 04/20 00:29 Order name: Ptt, Activated; Complete Time: 01:14 sb4 04/20 01:26 Order name: CBC Smear Scan; Complete Time: 05:22 EDMS 04/20 02:25 Order name: Packed RBC Leukored EDMS 04/20 07:23 Order name: CBC with Diff; Complete Time: 17:11 db 04/20 00:28 Order name: CT Abd/Pelvis - IV Contrast Only; Complete Time: 17:11 sb4 04/20 00:35 Order name: Transvaginal Study (probe); Complete Time: 17:11 sb4 04/20 00:28 Order name: IV Saline Lock; Complete Time: 00:47 sb4 04/20 00:28 Order name: Labs collected and sent; Complete Time: 00:47 sb4 Administered Medications: 00:47 Drug: NS 0.9% IV 1000 ml IV at 1 bolus Per protocol; 1000 mL bolus Route: IV; Rate: 1 km8 bolus; Site: right antecubital; 06:56 Follow up: Response: No adverse reaction; IV Status: IV converted to saline lock; IV jw7 Intake: 700ml 00:47 Drug: Ondansetron IVP 4 mg IVP once; over 2 minutes Route: IVP; Site: right antecubital;km8 01:56 Follow up: Response: No adverse reaction 8 06:56 Follow up: Response: No adverse reaction; Marked relief of symptoms jw7 02:02 Drug: Potassium PO Effervescent Tablet 25 mEq PO once; dissolve in 4 ounces of water or km8 juice Route: PO; 06:56 Follow up: Response: No adverse reaction jw7 03:32 Drug: diphenhydrAMINE PO 25 mg PO once Route: PO; jw7 06:56 Follow up: Response: No adverse reaction jw7 03:32 Drug: Premarin IV 25 mg IV at calculated rate once; may repeat once Route: IV; Rate: jw7 calculated rate; Site: right forearm; 06:54 Follow up: Response: No adverse reaction; IV Status: Completed infusion; IV Intake: 5ml jw7 03:33 Drug: Acetaminophen PO 1000 mg PO once Route: PO; jw7 06:56 Follow up: Response: No adverse reaction jw7 Disposition: 01:45 Co-signature as Attending Physician, Carlos Farmer MD I agree with the assessment sp4 and plan of care. I reviewed the patient's care provided by Advanced Practice Provider \T\ agree w/ the diagnosis \T\ care plan. I personally saw the pt \T\ performed a substantive portion of the visit, incldng all aspects of the (History/Exam/Medical Decision Making). 17:12 Chart complete. sb4 Disposition Summary: 04/20/23 06:48 Discharge Ordered Problem: new sp4 Symptoms: have improved sp4 Condition: Stable sp4 Diagnosis - Dysfunctional uterine bleeding, Menorrhagia and anemia, Symptomatic anemia sp4 Followup: sp4 - With: Private Physician - When: 7 - 10 days - Reason: Recheck today's complaints Discharge Instructions: - Discharge Summary Sheet sb4 - Dysfunctional Uterine Bleeding sp4 Forms: - Work release form ph - Patient Portal Instructions sp4 Prescriptions: - Sprintec (28) 0.25-35 mg-mcg Oral tablet - take 1 tablet ORAL route daily for 1 month Dispense one blister pack; 1 Pack; sp4 Refills: 0, Product Selection Permitted Signatures: Dispatcher [employer] Herbert Shaw RN RN jb4 Zofia Ricks RN RN jw7 Joan Godinez PA-C PA-C sb4 Potepalov, Sergey, MD MD sp4 Liliam Carter RN RN km8 Corrections: (The following items were deleted from the chart) 02:23 02:21 PACKED RBC LEUKORED+BB.LAB.BRZ ordered. EDMS EDMS 02:23 ABO/RH typing ordered. EDMS EDMS 02:23 Antibody Screen ordered. EDMS EDMS 06:10 02:21 Transfer - Initiate ordered. sp4 jw7
--- NOTE | 2023-04-20 06:48 | ER ---
Nurse's Notes [facility] Name: Bushra Brewer Age: 23 yrs Sex: Female : 2000 Arrival Date: 04/20/2023 Time: 00:05 Bed 7 Private MD: Diagnosis: Dysfunctional uterine bleeding, Menorrhagia and anemia, Symptomatic anemia Presentation: 04/20 00:34 Chief complaint: Patient states: I have been bleeding heavily vaginally for the past 2 jb4 weeks. I am getting short of breath and light headed at work. I am feeling a little nauseous. Coronavirus screen: At this time, the client does not indicate any symptoms associated with coronavirus-19. Ebola Screen: No symptoms or risks identified at this time. Initial Sepsis Screen: Does the patient meet any 2 criteria? HR > 90 bpm. Yes Does the patient have a suspected source of infection? No. Patient's initial sepsis screen is negative. Risk Assessment: Do you want to hurt yourself or someone else? Patient reports no desire to harm self or others. Onset of symptoms was April 20, 2023. Transition of care: patient was not received from another setting of care. 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 - Social history:: Smoking status: Reported history of juuling and/or vaping. Screenin:45 [facility] ED Fall Risk Assessment (Adult) History of falling in the last 3 months, km8 including since admission No falls in past 3 months (0 pts) Confusion or Disorientation No (0 pts) Intoxicated or Sedated No (0 pts) Impaired Gait No (0 pts) Mobility Assist Device Used No (0 pt) Altered Elimination No (0 pt) Score/Fall Risk Level 0 - 2 = Low Risk Oriented to surroundings, Maintained a safe environment, Educated pt \T\ family on fall prevention, incl call for assistance when getting out of bed, Assessed \T\ reinforced patient's understanding of fall precautions. Abuse screen: Denies threats or abuse. Denies injuries from another. Nutritional screening: No deficits noted. Tuberculosis screening: No symptoms or risk factors identified. Assessment: 00:45 General: Appears in no apparent distress. comfortable, Behavior is calm, cooperative, km8 appropriate for age. Pain: Denies pain. Neuro: Level of Consciousness is awake, alert, obeys commands, Oriented to person, place, time, situation. Cardiovascular: Denies chest pain, shortness of breath, Capillary refill < 3 seconds Patient's skin is warm and dry. Respiratory: Airway is patent Respiratory effort is even, unlabored, Respiratory pattern is regular, symmetrical. GI: No signs and/or symptoms were reported involving the gastrointestinal system. : Vaginal discharge is yarely blood, Reports vaginal bleeding that is bright red, heavy flow. EENT: No signs and/or symptoms were reported regarding the EENT system. Derm: No signs and/or symptoms reported regarding the dermatologic system. Skin is intact, is healthy with good turgor, Skin is dry, Skin is pink, warm \T\ dry. normal, Skin temperature is warm. Musculoskeletal: No signs and/or symptoms reported regarding the musculoskeletal system. Circulation, motion, and sensation intact. Range of motion: intact in all extremities. 01:49 Reassessment: CT called and stated CT power injector would not push through current IV; km8 IV is able to be flushed, just not power injected; new IV started while pt in CT . 02:37 Reassessment: Patient appears in no apparent distress at this time. No changes from km8 previously documented assessment. Patient and/or family updated on plan of care and expected duration. Pain level reassessed. Patient is alert, oriented x 3, equal unlabored respirations, skin warm/dry/pink. 03:05 General: Consulted Pharmacy about reconstitution and dosage of ordered Premarin jw7 medication. Pharmacy recommended to reconstitute Premarin 25 mg in 5 mL of Sterile Water to be given IVP, over 2-5 minutes. . 03:33 Reassessment: Patient appears in no apparent distress at this time. No changes from jw7 previously documented assessment. Patient and/or family updated on plan of care and expected duration. Pain level reassessed. Patient is alert, oriented x 3, equal unlabored respirations, skin warm/dry/pink. 03:40 General: 1st Unit of PRBCs started, See Transfusion Record. jw7 04:30 Reassessment: Patient appears in no apparent distress at this time. No changes from jw7 previously documented assessment. Patient and/or family updated on plan of care and expected duration. Pain level reassessed. Patient is alert, oriented x 3, equal unlabored respirations, skin warm/dry/pink. 05:30 Reassessment: Patient appears in no apparent distress at this time. No changes from jw7 previously documented assessment. Patient and/or family updated on plan of care and expected duration. Pain level reassessed. Patient is alert, oriented x 3, equal unlabored respirations, skin warm/dry/pink. 1st Unit of PRBCs completed. 05:50 General: 2nd Unit of PRBCs started. See Transfusion Record. . jw7 06:30 Reassessment: Patient appears in no apparent distress at this time. Patient and/or jw7 family updated on plan of care and expected duration. Pain level reassessed. Patient is alert, oriented x 3, equal unlabored respirations, skin warm/dry/pink. Patient states symptoms have improved. 06:48 General: Discharge pending completion of 2nd Unit of Blood and repeat HGB test. . jw7 08:20 Reassessment: Patient appears in no apparent distress at this time. Patient and/or ph family updated on plan of care and expected duration. Pain level reassessed. Pt asleep w/ unlabored respirations, VSS, 2nd unit PRBCs complete, will recheck H\T\H in 30 minutes then d/c patient home. 09:24 Reassessment: Patient appears in no apparent distress at this time. Patient and/or ph family updated on plan of care and expected duration. Pain level reassessed. Patient is alert, oriented x 3, equal unlabored respirations, skin warm/dry/pink. Pt instructed to follow up in clinic w/ Lorna Ho d/c and pt provided with work note, discharged home w/ family. Vital Signs: 00:34 BP 138 / 92; Pulse 106; Resp 18; Temp 97.9(TE); Pulse Ox 100% on R/A; Weight 54.43 kg jb4 (R); Height 5 ft. 7 in. (R); 01:00 BP 112 / 84; Pulse 90; Resp 16; Pulse Ox 100% on R/A; km8 01:45 BP 123 / 88; Pulse 91; Resp 16; Pulse Ox 100% on R/A; km8 02:00 BP 125 / 75; Pulse 91; Resp 16; Pulse Ox 100% on R/A; km8 02:30 BP 119 / 82; Pulse 93; Resp 16; Pulse Ox 100% on R/A; km8 03:00 BP 112 / 53; Pulse 86; Resp 16; Pulse Ox 100% on R/A; km8 03:40 BP 127 / 78; Pulse 86; Resp 13 S; Temp 97.9(TE); Pulse Ox 100% on R/A; jw7 04:40 BP 111 / 72; Pulse 81; Resp 20 S; Temp 98.3(TE); Pulse Ox 99% on R/A; jw7 05:30 BP 103 / 62; Pulse 79; Resp 19 S; Temp 97.5(TE); Pulse Ox 100% on R/A; jw7 05:50 BP 109 / 71; Pulse 80; Resp 19 S; Temp 97.6(TE); Pulse Ox 100% on R/A; jw7 06:50 BP 98 / 64; Pulse 70; Resp 20 S; Temp 98(TE); Pulse Ox 100% on R/A; jw7 07:00 BP 100 / 62; Pulse 62; Resp 18; Pulse Ox 100% on R/A; db 08:21 BP 105 / 65; Pulse 57; Resp 18; Temp 97.4; Pulse Ox 100% on R/A; ph 09:00 BP 111 / 70; Pulse 68; Resp 18; Pulse Ox 100% on R/A; db 00:34 Body Mass Index 18.79 (54.43 kg, 170.18 cm) jb4 [place] Coma Score: 00:45 Eye Response: spontaneous(4). Motor Response: obeys commands(6). Verbal Response: km8 oriented(5). Total: 15. ED Course: 00:07 Patient arrived in ED. jj6 00:10 Joan Godinez PA-C is PHCP. sb4 00:10 Carlos Farmer MD is Attending Physician. sb4 00:35 Triage completed. jb4 00:35 Arm band placed on right wrist. jb4 00:45 Patient has correct armband on for positive identification. Bed in low position. Call km8 light in reach. Side rails up X 1. Pulse ox on. NIBP on. Door closed. Lights dimmed. Warm blanket given. 00:45 Inserted saline lock: 22 gauge in right antecubital area, using aseptic technique. km8 Blood collected. 00:45 Patient maintains SpO2 saturation greater than 95% on room air. km8 00:46 Liliam Carter, JARROD is Primary Nurse. 8 00:47 Ptt, Activated Sent. 8 00:47 PT-INR Sent. 8 00:47 Type And Screen Sent. 8 00:47 Basic Metabolic Panel Sent. 8 00:47 CBC with Diff Sent. 8 00:47 Test, Urine Sent. km8 01:27 Transvaginal Study (probe) In Process Unspecified. EDMS 01:50 Inserted saline lock: 20 gauge in right forearm, using aseptic technique. km8 01:51 CT Abd/Pelvis - IV Contrast Only In Process Unspecified. EDMS 02:25 Assist provider with pelvic exam: Set up pelvic tray. Performed by Carlos Farmer MD km8 Patient tolerated well. 02:36 Provided Education on: Blood Transfusion, and transfusion consent. km8 09:28 IV discontinued, intact, bleeding controlled, No redness/swelling at site. Pressure ph dressing applied. Administered Medications: 00:47 Drug: NS 0.9% IV 1000 ml IV at 1 bolus Per protocol; 1000 mL bolus Route: IV; Rate: 1 km8 bolus; Site: right antecubital; 06:56 Follow up: Response: No adverse reaction; IV Status: IV converted to saline lock; IV jw7 Intake: 700ml 00:47 Drug: Ondansetron IVP 4 mg IVP once; over 2 minutes Route: IVP; Site: right antecubital;km8 01:56 Follow up: Response: No adverse reaction 8 06:56 Follow up: Response: No adverse reaction; Marked relief of symptoms jw7 02:02 Drug: Potassium PO Effervescent Tablet 25 mEq PO once; dissolve in 4 ounces of water or km8 juice Route: PO; 06:56 Follow up: Response: No adverse reaction jw7 03:32 Drug: diphenhydrAMINE PO 25 mg PO once Route: PO; jw7 06:56 Follow up: Response: No adverse reaction jw7 03:32 Drug: Premarin IV 25 mg IV at calculated rate once; may repeat once Route: IV; Rate: jw7 calculated rate; Site: right forearm; 06:54 Follow up: Response: No adverse reaction; IV Status: Completed infusion; IV Intake: 5ml jw7 03:33 Drug: Acetaminophen PO 1000 mg PO once Route: PO; jw7 06:56 Follow up: Response: No adverse reaction jw7 Medication: 00:45 VIS not applicable for this client. km8 03:40 Blood products: PRBCs X 1 unit given. See transfusion record. jw7 Intake: 06:54 IV: 5ml; Total: 5ml. jw7 06:56 IV: 700ml; Total: 705ml. jw7 Outcome: 06:48 Discharge ordered by . spChantell 09:28 Discharged to home ambulatory, with family, 09:28 Condition: good 09:28 Discharge instructions given to patient, Instructed on discharge instructions, follow up and referral plans. medication usage, Demonstrated understanding of instructions, follow-up care, medications, Prescriptions given X 1, 09:47 Patient left the ED. db Signatures: Dispatcher [employer] EDGA Leatha Norton RN RN Herbert Romano RN RN jb4 Bee Sowj6 Zofia Ricks RN RN jw7 Nila Walter, RN RN oJan Andrews, PA-Estelle PA-Carlos Mckeon MD MD sp4 Liliam Carter RN RN km8 Corrections: (The following items were deleted from the chart) 02:03 02:02 LMP 04/06/2023, unknown 8 km8 02:16 00:45 No provider procedures requiring assistance completed. km8 km8 03:59 03:40 Blood products: PRBCs X 1 unit given. jw7 jw7
[2023-04-20 09:08] LABS: Absolute Lymphocytes (CBC) 2.5 K/uL (0.7-4.9); Hematocrit 28.5 % (36.0-45.0); Lymphocytes % 49.9 % (15.3-44.8); MPV 8.7 fL (7.6-11.3); Platelets 261 thou/uL (152-406); RBC Red Blood Cell Count 4.19 M/uL (3.86-4.86)
[2023-04-20 10:00] VITALS: O2SAT 100
[2023-04-20 10:08] LABS: Blood Morphology Comment NOTED (NOT SEEN); Platelet Estimate ADEQ; White Blood Cell Scan OK (OK)
[2023-04-20 10:09] LABS: Anisocytosis 2+; Hypochromasia 1+
[2023-04-20 10:27] VITALS: BP 111/70; TEMP 97.4
--- NOTE | 2023-04-20 12:46 | RAD REPORT ---
EXAM DESCRIPTION: CT - Abdomen Pelvis W Contrast - 04/20/2023 6:35 am CLINICAL HISTORY: The patient is 23 years old and is Female; VAGINAL BLEEDING TECHNIQUE: Axial computed tomography images of the abdomen and pelvis with intravenous contrast. S agittal and coronal reformatted images were created and reviewed. This CT exam was performed using one or more of the following dose reduction techniques: automated exposure control, adjustment of t he mA and/or kV according to patient size, and/or use of iterative reconstruction technique. DLP: 497 mGy*cm COMPARISON: Pelvic ultrasound dated 06/23/2022. FINDINGS: LUNG BASES: Unremarkable. No mass. No consolidation. ABDOMEN: LIVER: Unremarkable. No mass. GALLBLADDER AND BILE DUCTS: Contracted gallbladder. No calcified stones. No ductal dilation. PANCREAS: Unremarkable. No mass. No ductal dilation. SPLEEN: Unremarkable. No splenomegaly. ADRENALS: Unremarkable. No mass. KIDNEYS AND URETERS: Unremarkable. No solid mass. No hydronephrosis. STOMACH AND BOWEL: Unremarkable. No obstruction. No mucosal thickening. PELVIS: APPENDIX: The appendix is seen and is within normal limits. BLADDER: Bladder is decompressed. REPRODUCTIVE: Left ovarian cyst measuring 3.2 cm. ABDOMEN and PELVIS: INTRAPERITONEAL SPACE: Unremarkable. No free air. No significant fluid collection. BONES/JOINTS: Straightening of the lumbar lordosis. No acute fracture. No dislocation. SOFT TISSUES: Unremarkable. VASCULATURE: Unremarkable. No abdominal aortic aneurysm. LYMPH NODES: Unremarkable. No enlarged lymph nodes. IMPRESSION: 1. No acute abdominal or pelvic abnormity. 2. Left ovarian cyst measuring 3.2 cm. No follow-up imaging is recommended. Reference: JACR 2019;17(2):248-254 3. Straightening of the lumbar lordosis. Findings may be positional or due to muscle spasm. Electronically signed by: Chaitanya Otto DO 04/20/2023 02:27 AM ONLINE MEDIA DIRECTOR Due to temporary technical issues with the PACS/Fluency reporting system, reports are being signed by the in house radiologist without review as a courtesy to ensure prompt reporting. The interpreting r adiologist is fully responsible for the content of the report.
--- NOTE | 2023-04-20 12:59 | RAD REPORT ---
EXAM DESCRIPTION: US - Transvaginal Study Probe - 04/20/2023 1:25 am CLINICAL HISTORY: 23 years Female, VAGINAL BLEEDING COMPARISON: Report from ultrasound dated 06/23/2022. No images available at time of dictation for dir ect comparison. TECHNIQUE: Transvaginal images of the pelvis obtained. FINDINGS: Uterus: Anteverted, measuring 7.1 x 3.9 x 5.0 cm. No myometrial mass. Endometrium: Measures up to 0.4 cm in thickness, within normal limits. Right ovary: Measures 1.4 x 2.8 x 1.0 cm. No suspicious sonographic abnormality. Left ovary: Measures 2.5 x 3.1 x 2.8 cm and contains a cyst measuring 2.8 x 2.4 x 2.3 cm. No follow-u p imaging is recommended. Adnexa: No additional abnormality. Free fluid: None identified. Duplex imaging: Vascular flow demonstrated to both ovaries. IMPRESSION: No suspicious sonographic abnormality. Electronically signed by: Fernanda Hinkle MD 04/20/2023 01:54 AM REGIONAL CLINICAL RESEARCH ASSOCIATE Due to temporary technical issues with the PACS/Fluency reporting system, reports are being signed by the in house radiologist without review as a courtesy to ensure prompt reporting. The interpreting r adiologist is fully responsible for the content of the report.
== END ==
LOC: ER 00:05
PROC: 30233N1 Transfusion of Nonautologous Red Blood Cells into Peripheral Vein, Percutaneous Approach (ICD-10-PCS; principal; 2023-04-20)
DX: D64.9 Anemia, unspecified (principal)
CPT/HCPCS: 36415; 74177; 76830; 80048; 81025; 85025; 85610; 85730; 86850; 86900; 86901; 86920; J1410; J2405; J7030; J7050; P9016; Q9967

== ENCOUNTER 2024-03-03 23:59 | Emergency (ER) | payer OTHER, SELFPAY ==
--- OUTSIDE RECORDS SUMMARY | 2024-03-04 00:06 | XMS REPORT | Continuity of Care Document ---
Author Name Unknown Address [address] [place] [address] [facility] thconnect Address [address] [place] [address] Care Team Providers Care Building Drafter Name Role Phone STU CERVANTES Primary Care Physician Unavaila Bryant Bello Attending Clinician Unavailable Marisol Payne CNM Attending Clinician RAJ SCOTT Attending Clinician Unavailable RAJ SCOTT Attending Clinician Unavailable Raj Scott MD Attending Clinician [phone] MATEO GEORGE Attending Clinician Unavailable MATEO GEORGE Attending Clinician Unavailable MATEO GEORGE Attending Clinician Unavailable MARISOL PAYNE Attending Clinician Unavaileverette [facility]on [facility] + Ultrasound, [facility] Attending Clinician Unavaila SONIA Singh Attending Clinician Unavailable Sonia Partida NP Attending Clinician TALIA ROBB Attending Clinician Unavailable TALIA ROBB Attending Clinician Unavailable 3, [facility] Usg Room Attending Clinician UnavailTalia Dowling MD Attending Clinician [phone] ODELL CHRISTIANSON Attending Clinician Unavail able ANYA WARNER Attending Clinician Unavailable BO RODRIGUEZ Attending Clinician Unavailable Michael HERNANDEZ, Bo Attending Clinician [phone] KEVIN REYNA Attending Clinician Unavailable [email or web address] Attending Clinician UnavailBARBARA Leary Attending Clinician BARBARA Vance Attending Clinician KATIE Murguia Attending Clinician Unavailjennifer Tinsley MD, Katie Denney Attending Clinician [phone] Doctor Unassigned, Mertzon Attending Clinician U DIONICIO Stevens Attending Clinician Unavailab sue HERNANDEZ, Dionicio Erickson Attending Clinician [phone] Rainer Rizo Attending Clinician [phone] Flora Bryant PA-C Attending Clinician [phone] FLORA BRYANT Attending Clinician Unavailable RAJ SCOTT Admitting Clinician Unavailable Bryant Naidu Admitting Clinician Unavailable Sanjeev MON, Raj Chow Admitting Clinician [phone] [email or web address] Admitting Clinician Unavaila romel Payers Payer Name Policy Type Policy Number Effective Date Expirati on Date Source 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 thalassemi a silent carrier Disease Active 2023-03 0-30 00:00: 00 [facility] Marginal insertion of umbilical cord affecting management of mother Marginal insertion of umbilical cord affecting management of mother Disease Active 2023-03 0-17 00:00: 00 [facility] UTI (urinary tract infection) during UTI (urinary tract infection) during Disease Active 11-21 00:00: 00 [facility] Chlamydia infection affecting Chlamydia infection affecting Disease Active 11-19 00:00: 00 [facility] Anemia of mother in , antepartum Anemia of mother in , antepartum Disease Active 11-18 00:00: 00 [facility] Flu vaccine refused Flu vaccine refused Disease Active 11-18 00:00: 00 [facility] Late care Late care Disease Active 11-18 00:00: 00 [facility] History of delivery, currently History of delivery, currently Disease Active 11-17 00:00: 00 [facility] History of heart murmur in childhood History of heart murmur in childhood Disease Active 11-02 00:00: 00 [facility] History of blood transfusio n History of blood transfusio n Disease Active 30 00:00: 00 [facility] Dysuria Dysuria Disease Resolve d 11-18 00:00: 00 2023-12-16 00:00:00 2023-12-16 09:01:54 [facility] Maternal varicella, non-immune Maternal varicella, non-immune Disease Active 11-02 00:00: 00 2023-11-18 00:00:00 2023-11-18 09:18:20 Overview: Formattin g of this note might be different from the original. Address in [facility] Screening for viral disease Screening for viral disease Disease Resolve d 9- 00:00: 00 2023-11-18 00:00:00 2023-11-18 09:18:11 [facility] History of anemia History of anemia Disease Resolve d 9- 00:00: 00 2023-11-18 00:00:00 2023-11-18 09:18:12 [facility] Primigravi da in first trimester Primigravi da in first trimester Disease Resolve d 2019- 9-02 00:00: 00 2023-11-18 00:00:00 2023-11-18 09:18:16 [facility] High risk teen in first trimester High risk teen in first trimester Disease Resolve d 9-02 00:00: 00 2023-11-18 00:00:00 2023-11-18 09:18:16 [facility] Supervisio n of high risk in first trimester Supervisio n of high risk in first trimester Disease Resolve d 9-02 00:00: 00 2023-11-18 00:00:00 2023-11-18 09:18:17 [facility] Excessive menstruati on at puberty Excessive menstruati on at puberty Disease Resolve d 30 00:00: 00 2023-11-18 00:00:00 2023-11-18 09:18:04 [facility] Depo-Prove ra contracept caty status Depo-Prove ra contracept caty status Disease Resolve d 03-31 00:00: 00 2023-11-18 00:00:00 2023-11-18 09:18:05 [facility] Iron deficiency anemia due to chronic blood loss Iron deficiency anemia due to chronic blood loss Disease Resolve d 03-31 00:00: 00 2023-11-18 00:00:00 2023-11-18 09:18:08 [facility] Elevated hemoglobin A1c Elevated hemoglobin A1c Disease Resolve d 03-31 00:00: 00 2023-11-18 00:00:00 2023-11-18 09:18:11 [facility] Allergies, Adverse Reactions, Alerts Allergy Name Allergy Type Status Severity Reaction(s) Onset Date Inactive Date Treating Clinician Comments Source No Known Allergie s DA Active U 05-02 00:00: 00 [facility] No Known Allergie s DA Active U 05-02 00:00: 00 [facility] NO KNOWN ALLERGIE S Drug Class Active [facility] Social History Social Habit Start Date Stop Date Quantity Comments Source ASSERTION 2023-07-10 00:00:00 [facility] Exposure to SARS-CoV-2 (event) Not sure [facility] intake 2023-12-30 00:00:00 2023-12-30 00:00:00 Current non-drinker of alcohol (finding) [facility] Tobacco use and exposure 2023-11-18 00:00:00 2023-11-18 00:00:00 Smokeless tobacco non-user [facility] History of Social function 2023-11-18 00:00:00 2023-11-18 00:00:00 [facility] Alcohol intake 2022-11-26 00:00:00 2022-11-26 00:00:00 Current non-drinker of alcohol (finding) [facility] Sex assigned at 2002 00:00:00 2000 00:00:00 [facility] Smoking Status Start Date Stop Date Source Never smoked tobacco [facility] Medications Ordered Medication Name Filled Medication Name Start Date Stop Date Current Medication? Ordering Clinician Indication Dosage Frequency Signature (SIG) Comments Components Source metroNIDAZO LE (FLAGYL) tablet 500 mg 2023-03 06:02: 00 02-18 06:10 :00 No 500mg 500 mg, Oral, ONCE NOW, 1 dose, On Thu02/19/24 at 0015, Routine, Reason for Anti-Infec tive: Documented Infection, Documented Infection Site: Pelvic, Duration of Therapy: Once (ED) [facility] metroNIDAZO LE 500 mg tablet 2023-03 00:00: 00 Yes [id number] 500mg Take 1 tablet by mouth every 12 (twelve) hours. [facility] NaCl 0.9% (NS) bolus infusion 1,000 mL 2023-03 16:45: 00 12-20 18:10 :00 No 1000mL at 999 mL/hr, 1,000 mL, IV Infusion, ONCE, 1 dose, On Thu12/21/23 at 1145, KAILA [facility] sodium chloride (NS) injection 5 mL 2023-03 15:47: 35 Yes 5mL 5 mL, Intravenou s, PRN, Starting on Thu12/21/23 at 1047, Until Discontinu ed, Routine, IV line flushing [facility] ondansetron 4 mg disintegrat ing tablet 2023-03 00:00: 00 Yes [id number] 4mg Take 1 tablet by mouth every 8 (eight) hours as needed for Nausea and Vomiting (N/V). [facility] cephALEXin 500 mg tablet 2023-03 00:00: 00 12-28 04:59 :00 Yes [id number] 500mg Take 1 tablet by mouth 4 (four) times daily for 7 days. [facility] Nitrofurant oin&Nit. Macrocryst (MACROBID) 100 mg capsule 11-21 00:00: 00 12-02 04:59 :00 No [id number] 100mg Take 1 capsule by mouth in the morning and 1 capsule in the evening. Do all this for 10 days. [facility] azithromyci n (ZITHROMAX) 500 mg tablet 11-21 00:00: 00 11-22 04:59 :00 No [id number] 01 1000mg Take 2 tablets by mouth once now for 1 dose. [facility] azithromyci n (ZITHROMAX) 500 mg tablet 11-19 00:00: 00 11-20 04:59 :00 No [id number] 01 1000mg Take 2 tablets by mouth once now for 1 dose. [facility] Iron Fum & P-FA-Vit B & C No.9 (INTEGRA PLUS) 125 mg iron- 1 mg Cap 11-18 00:00: 00 Yes [id number] 1{capsu le} Take 1 capsule by mouth in the morning. [facility] PNV 67-iron ps-folate no.1-dha (VITAFOL ULTRA) 29 mg iron- 1 mg-200 mg Cap 11-17 00:00: 00 Yes [id number] 1{capsu le} Take 1 capsule by mouth in the morning. [facility] nystatin 100,000 unit/gram cream 11-17 00:00: 00 Yes [id number] Apply to area(s) 2 (two) times daily as needed for Itching or Rash. [facility] norgestimat e-ethinyl estradioL (SPRINTEC) 0.25-35 mg-mcg per tablet 2022-03 2- 00:00: 00 11-17 00:00 :00 No [id number] 100 1{tbl} Take 1 tablet by mouth in the morning. [facility] ibuprofen 800 mg tablet 2022-03 00:00: 00 11-17 00:00 :00 No [id number] 800mg Take 1 tablet by mouth every 8 (eight) hours as needed for Pain (scale 4-6). [facility] meclizine (TRAVEL-EAS E (MECLIZINE) ) tablet 25 mg 11-27 01:30: 00 11-27 01:39 :00 No 25mg 25 mg, Oral, ONCE, 1 dose, On Thu11/26/22 at 2030, KAILA [facility] meclizine 25 mg tablet 11-26 00:00: 00 11-17 00:00 :00 No [id number] 25mg Take 1 tablet by mouth every 6 (six) hours as needed for Dizziness or Nausea. [facility] proMETHazin e 25 mg tablet 11-26 00:00: 00 11-17 00:00 :00 No [id number] 25mg Take 1 tablet by mouth every 6 (six) hours as needed for Nausea and Vomiting (N/V). [facility] ferrous sulfate 325 mg (65 mg iron) tablet 11-09 00:00: 00 11-17 00:00 :00 No [id number] 325mg Take 1 tablet by mouth 2 (two) times daily. [facility] ascorbic acid, vitamin C, 500 mg tablet 11-09 00:00: 00 11-17 00:00 :00 No [id number] 500mg Take 1 tablet by mouth 3 (three) times daily. [facility] medroxyPROG ESTERone (DEPO-PROVE RA) 150 mg/mL injection 11-01 19:23: 11-01 00:00 :00 No 150mg 150 mg by Intramuscu lar route every 3 (three) months. [facility] ferrous sulfate (IRON) 325 mg (65 mg iron) tablet 11-01:23: 11-01 00:00 :00 No 325mg Take 325 mg by mouth 3 (three) times daily with meals. [facility] vit 33-iron-fol ic-dha (SELECT-OB + DHA) 29 mg iron-1 mg -250 mg combo pack 11-01 00:00: 00 Yes [id number] 1{packe t} Take 1 Packet by mouth daily. [facility] vit 33-iron-fol ic-dha (SELECT-OB + DHA) 29 mg iron-1 mg -250 mg combo pack 11-01 00:00: 00 11-17 00:00 :00 No [id number] 1{packe t} Take 1 Packet by mouth daily. [facility] proMETHazin e (PHENERGAN) 25 mg in NaCl 0.9% (NS) 50 mL piggyback 10-05 23:30: 00 10-05 23:30 :00 No 25mg 25 mg, IV Piggyback, ONCE, 1 dose, Reema 8/6/20 at 1830, 50 mL [facility] NaCl 0.9% (NS) bolus infusion 1,000 mL 10-05 23:00: 00 10-06 00:02 :00 No 1000mL at 999 mL/hr, 1,000 mL, IV Infusion, ONCE, 1 dose, Reema 8/6/20 at 1800, KAILA [facility] NaCl 0.9% (NS) bolus infusion 1,000 mL 10-05 22:30: 00 10-05 23:12 :00 No 1000mL at 999 mL/hr, 1,000 mL, IV Infusion, ONCE, 1 dose, Reema 8/6/20 at 1730, [facility] proMETHazin e 25 mg tablet 10-05 00:00: 00 11-01 00:00 :00 No [id number] 25mg Take 1 tablet by mouth every 6 (six) hours as needed for Nausea and Vomiting (N/V). [facility] proMETHazin e (PHENERGAN) 25 mg suppository 10-05 00:00: 11-01 00:00 :00 No [id number] 25mg Insert 1 Suppositor y into rectum every 6 (six) hours as needed for Nausea and Vomiting (N/V). [facility] multivitami n ( VITAMIN) tablet 10-05 00:00: 00 11-01 00:00 :00 No [id number] 1{tbl} Take 1 tablet by mouth daily. [facility] cephALEXin (KEFLEX) 500 mg capsule 10-05 00:00: 00 10-13 04:59 :00 No [id number] 500mg Take 1 capsule by mouth 2 (two) times daily for 7 days. [facility] medroxyPROG ESTERone (DEPO-PROVE RA) 150 mg/mL injection 10-09 21:17: 16 Yes 150mg 150 mg by Intramuscu lar route every 3 (three) months. [facility] ferrous sulfate (IRON) 325 mg (65 mg iron) tablet 06-29 18:14: 37 Yes 325mg Take 325 mg by mouth 3 (three) times daily with meals. [facility] Immunizations Ordered Immunization Name Filled Immunization Name Date Status Comments Source TDAP 2023-12-16 00:00:00 Completed Influenza Virus Vaccine Quad IM 3+ YRS 2019-01-24 00:00:00 Completed Influenza Virus Vaccine Quad IM 3+ YRS 2016-12-09 00:00:00 Completed Influenza Virus Vaccine Quad IM 3+ YRS 2016-02-13 00:00:00 Completed HPV 2014-07-25 00:00:00 Completed [facility] Meningococcal Polysaccharide (groups A, C, Y and W-135) conjugate vaccine (MCV4P) 2014-07-25 00:00:00 Completed [facility] TDAP 2014-07-25 00:00:00 Completed [facility] HPV 2011-01-13 00:00:00 Completed [facility] DTAP 2006-07-14 00:00:00 Completed Proquad (MMR/VARICELLA) 2006-07-14 00:00:00 Completed [facility] Pneumococcal 7 Conjugate, PCV7 (Prevnar7) 2006-07-14 00:00:00 Completed [facility] Polio (IPV/OPV) 2006-07-14 00:00:00 Completed DTaP, Unspecified Formulation 2006-07-14 00:00:00 Completed IPV 2006-07-14 00:00:00 Completed HEPATITIS A 2005-10-10 00:00:00 Completed HEPA-PEDS 2005-10-10 00:00:00 Completed HEPATITIS A 2005-03-04 00:00:00 Completed HIB 4 Dose Schedule 2003-06-20 00:00:00 Completed [facility] DTAP 2003-06-20 00:00:00 Completed MMR 2003-06-20 00:00:00 Completed Pneumococcal 7 Conjugate, PCV7 (Prevnar7) 2003-06-20 00:00:00 Completed Varicella (varivax)(chicken pox) 2003-06-20 00:00:00 Completed DTaP, Unspecified Formulation 2003-06-20 00:00:00 Completed Hib-HbOC 2003-06-20 00:00:00 Completed HIB 4 Dose Schedule 2002 00:00:00 Completed DTAP 2002 00:00:00 Completed Hep B, Adol or Pedi Dosage 2002 00:00:00 Completed Pneumococcal 7 Conjugate, PCV7 (Prevnar7) 2002 00:00:00 Completed Polio (IPV/OPV) 2002 00:00:00 Completed DTaP, Unspecified Formulation 2002 00:00:00 Completed Hib-HbOC 2002 00:00:00 Completed IPV 2002 00:00:00 Completed HIB 4 Dose Schedule 2002 00:00:00 Completed [facility] DTAP 2002 00:00:00 Completed Polio (IPV/OPV) 2002 00:00:00 Completed DTaP, Unspecified Formulation 2002 00:00:00 Completed IPV 2002 00:00:00 Completed HIB 4 Dose Schedule 2002 00:00:00 Completed [facility] DTAP 2002 00:00:00 Completed Hep B, Adol or Pedi Dosage 2002 00:00:00 Completed [facility] Pneumococcal 7 Conjugate, PCV7 (Prevnar7) 2002 00:00:00 Completed [facility] Polio (IPV/OPV) 2002 00:00:00 Completed DTaP, Unspecified Formulation 2002 00:00:00 Completed IPV 2002 00:00:00 Completed Hep B, Adol or Pedi Dosage 2002 00:00:00 Completed HIB 4 Dose Schedule Unknown Completed [facility] DTAP Unknown Completed [facility] HEPATITIS A Unknown Completed [facility] Hep B, Adol or Pedi Dosage Unknown Completed [facility] HPV Unknown Completed [facility] Influenza Virus Vaccine Quad IM 3+ YRS Unknown Completed [facility] Meningococcal Polysaccharide (groups A, C, Y and W-135) conjugate vaccine (MCV4P) Unknown Completed [facility] MMR Unknown Completed [facility] Proquad (MMR/VARICELLA) Unknown Completed [facility] Pneumococcal 7 Conjugate, PCV7 (Prevnar7) Unknown Completed [facility] Polio (IPV/OPV) Unknown Completed [facility] TDAP Unknown Completed [facility] Varicella (varivax)(chicken pox) Unknown Completed [facility] HIB 4 Dose Schedule Unknown Completed [facility] DTAP Unknown Completed [facility] HEPATITIS A Unknown Completed [facility] Hep B, Adol or Pedi Dosage Unknown Completed [facility] HPV Unknown Completed [facility] Influenza Virus Vaccine Quad IM 3+ YRS Unknown Completed [facility] Meningococcal Polysaccharide (groups A, C, Y and W-135) conjugate vaccine (MCV4P) Unknown Completed [facility] MMR Unknown Completed [facility] Proquad (MMR/VARICELLA) Unknown Completed [facility] Pneumococcal 7 Conjugate, PCV7 (Prevnar7) Unknown Completed [facility] Polio (IPV/OPV) Unknown Completed [facility] TDAP Unknown Completed [facility] Varicella (varivax)(chicken pox) Unknown Completed [facility] HIB 4 Dose Schedule Unknown Completed [facility] DTAP Unknown Completed [facility] HEPATITIS A Unknown Completed [facility] Hep B, Adol or Pedi Dosage Unknown Completed [facility] HPV Unknown Completed [facility] Influenza Virus Vaccine Quad IM 3+ YRS Unknown Completed [facility] Meningococcal Polysaccharide (groups A, C, Y and W-135) conjugate vaccine (MCV4P) Unknown Completed [facility] MMR Unknown Completed [facility] Proquad (MMR/VARICELLA) Unknown Completed [facility] Pneumococcal 7 Conjugate, PCV7 (Prevnar7) Unknown Completed [facility] Polio (IPV/OPV) Unknown Completed [facility] TDAP Unknown Completed [facility] Varicella (varivax)(chicken pox) Unknown Completed [facility] HIB 4 Dose Schedule Unknown Completed [facility] DTAP Unknown Completed [facility] HEPATITIS A Unknown Completed [facility] Hep B, Adol or Pedi Dosage Unknown Completed [facility] HPV Unknown Completed [facility] Influenza Virus Vaccine Quad IM 3+ YRS Unknown Completed [facility] Meningococcal Polysaccharide (groups A, C, Y and W-135) conjugate vaccine (MCV4P) Unknown Completed [facility] MMR Unknown Completed [facility] Proquad (MMR/VARICELLA) Unknown Completed [facility] Pneumococcal 7 Conjugate, PCV7 (Prevnar7) Unknown Completed [facility] Polio (IPV/OPV) Unknown Completed [facility] TDAP Unknown Completed [facility] Varicella (varivax)(chicken pox) Unknown Completed [facility] Vital Signs Vital Name Observation Time Observation Value Comments S ource Systolic blood pressure 2024-02-19 04:48:00 123 mm[Hg] [facility] Diastolic blood pressure 2024-02-19 04:48:00 71 mm[Hg] [facility] Heart rate 2024-02-19 04:48:00 105 /[facility] temperature 2024-02-19 04:48:00 37.33 Carmen [facility] Respiratory rate 2024-02-19 04:48:00 18 /min [facility] Body height 2024-02-19 04:48:00 167.6 cm [facility] Body weight 2024-02-19 04:48:00 67.949 kg [facility] BMI 2024-02-19 04:48:00 24.18 kg/m2 [facility] Oxygen saturation in Arterial blood by Pulse oximetry 2024-02-19 04:48:00 100 /min [facility] Systolic blood pressure 2023-12-30 20:21:00 133 mm[Hg] [facility] Diastolic blood pressure 2023-12-30 20:21:00 75 mm[Hg] [facility] Heart rate 2023-12-30 20:21:00 102 /min [facility] Body temperature 2023-12-30 20:21:00 36.06 Carmen [facility] Respiratory rate 2023-12-30 20:21:00 18 /min [facility] Body height 2023-12-30 20:21:00 170.2 cm [facility] Body weight 2023-12-30 20:21:00 65.346 kg [facility] BMI 2023-12-30 20:21:00 22.56 kg/m2 [facility] Systolic blood pressure 2023-12-21 18:01:00 95 mm[Hg] [facility] Diastolic blood pressure 2023-12-21 18:01:00 56 mm[Hg] [facility] Heart rate 2023-12-21 18:01:00 92 /min [facility] Body temperature 2023-12-21 18:01:00 36.06 Carmen [facility] Respiratory rate 2023-12-21 18:01:00 19 /min [facility] Oxygen saturation in Arterial blood by Pulse oximetry 2023-12-21 18:01:00 100 /min [facility] Body height 2023-12-21 15:11:00 170.2 cm [facility] Body weight 2023-12-21 15:11:00 64.864 kg [facility] BMI 2023-12-21 15:11:00 22.40 kg/m2 [facility] Systolic blood pressure 2023-12-16 14:06:00 117 mm[Hg] [facility] Diastolic blood pressure 2023-12-16 14:06:00 72 mm[Hg] [facility] Heart rate 2023-12-16 14:06:00 97 /min [facility] Body temperature 2023-12-16 14:06:00 36.17 Carmen [facility] Respiratory rate 2023-12-16 14:06:00 18 /min [facility] Body height 2023-12-16 14:06:00 170.2 cm [facility] Body weight 2023-12-16 14:06:00 63.504 kg [facility] BMI 2023-12-16 14:06:00 21.93 kg/m2 [facility] Systolic blood pressure 2023-11-18 14:05:00 109 mm[Hg] [facility] Diastolic blood pressure 2023-11-18 14:05:00 69 mm[Hg] [facility] Heart rate 2023-11-18 14:05:00 98 [facility] 2023-11-18 14:05:00 36.28 Carmen [facility] Respiratory rate 2023-11-18 14:05:00 18 /min [facility] [facility] Body height 2023-11-18 14:05:00 170.2 cm [facility] Body weight 2023-11-18 14:05:00 60.952 kg [facility] BMI 2023-11-18 14:05:00 21.05 kg/m2 [facility] Body temperature 2023-02-04 06:56:00 36.61 Carmen [facility] Systolic blood pressure 2023-02-04 06:00:00 121 mm[Hg] [facility] Diastolic blood pressure 2023-02-04 06:00:00 83 mm[Hg] [facility] Heart rate 2023-02-04 06:00:00 81 /min [facility] Oxygen saturation in Arterial blood by Pulse oximetry 2023-02-04 06:00:00 99 /min [facility] Respiratory rate 2023-02-04 05:47:00 16 /min [facility] Body height 2023-02-04 04:34:00 170.2 cm [facility] Body weight 2023-02-04 04:34:00 55.792 kg [facility] BMI 2023-02-04 04:34:00 19.26 kg/m2 [facility] Heart rate 2022-11-27 01:00:00 89 /min [facility] Respiratory rate 2022-11-27 01:00:00 16 /min [facility] Oxygen saturation in Arterial blood by Pulse oximetry 2022-11-27 01:00:00 100 /min [facility] Systolic blood pressure 2022-11-27 00:13:00 122 mm[Hg] [facility] Diastolic blood pressure 2022-11-27 00:13:00 76 mm[Hg] [facility] Body temperature 2022-11-27 00:13:00 37.11 Carmen [facility] Body height 2022-11-27 00:13:00 167.6 cm [facility] Body weight 2022-11-27 00:13:00 58.514 kg [facility] BMI 2022-11-27 00:13:00 20.82 kg/m2 [facility] Systolic blood pressure 2019-11-10 17:59:00 119 mm[Hg] [facility] Diastolic blood pressure 2019-11-10 17:59:00 72 mm[Hg] [facility] Heart rate 2019-11-10 17:59:00 100 /min [facility] Body temperature 2019-11-10 17:59:00 37.28 Carmen [facility] Respiratory rate 2019-11-10 17:59:00 16 /min [facility] Body height 2019-11-10 17:59:00 167.6 cm [facility] Body weight 2019-11-10 17:59:00 59.285 kg [facility] BMI 2019-11-10 17:59:00 21.10 kg/m2 [facility] Systolic blood pressure 2019-11-10 17:59:00 119 mm[Hg] [facility] Diastolic blood pressure 2019-11-10 17:59:00 72 mm[Hg] [facility] Heart rate 2019-11-10 17:59:00 100 /min [facility] Body temperature 2019-11-10 17:59:00 37.28 Carmen [facility] Respiratory rate 2019-11-10 17:59:00 16 /min [facility] Body height 2019-11-10 17:59:00 167.6 [facility] 2019-11-10 17:59:00 59.285 kg [facility] BMI 2019-11-10 17:59:00 21.10 kg/m2 [facility] Systolic blood pressure 2019-11-02 18:34:00 117 mm[Hg] [facility] Diastolic blood pressure 2019-11-02 18:34:00 63 mm[Hg] [facility] Heart rate 2019-11-02 18:34:00 73 /min [facility] Body temperature 2019-11-02 18:34:00 36.11 Carmen [facility] Respiratory rate 2019-11-02 18:34:00 16 /min [facility] Body height 2019-11-02 18:34:00 167.6 cm [facility] Body weight 2019-11-02 18:34:00 59.92 kg [facility] BMI 2019-11-02 18:34:00 21.32 kg/m2 [facility] Systolic blood pressure 2019-11-02 18:34:00 117 mm[Hg] [facility] Diastolic blood pressure 2019-11-02 18:34:00 63 mm[Hg] [facility] Heart rate 2019-11-02 18:34:00 73 /min [facility] Body temperature 2019-11-02 18:34:00 36.11 Carmen [facility] Respiratory rate 2019-11-02 18:34:00 16 /min [facility] Body height 2019-11-02 18:34:00 167.6 cm [facility] Body weight 2019-11-02 18:34:00 59.92 [facility] BMI 2019-11-02 18:34:00 21.32 kg/m2 [facility] Systolic blood pressure 2019-10-07 00:00:00 102 mm[Hg] [facility] Diastolic blood pressure 2019-10-07 00:00:00 66 mm[Hg] [facility] Heart rate 2019-10-07 00:00:00 95 /[facility] Res[facility] rate 2019-10-07 00:00:00 16 /min [facility] Oxygen saturation in Arterial blood by Pulse oximetry 2019-10-07 00:00:00 100 /min [facility] Body temperature 2019-10-06 22:17:00 37.28 Carmen [facility] Body weight 2019-10-06 22:17:00 61.689 kg [facility] Procedures Procedure Date / Time Performed Performing Clinician Source URINALYSIS 2024-02-19 05:00:00 Raj Scott [facility] ADC CLC OR LCC ONLY - WET PREP 2024-02-19 05:00:00 Raj Scott [facility] SECOND AND THIRD TRIMESTER ULTRASOUND 2024-01-21 18:52:00 Marisol Payne [facility] POCT URINALYSIS 2023-12-30 20:27:00 Marisol Payne [facility] POCT TEST 2023-12-21 16:25:00 Kaur Partida [facility] LIPASE 2023-12-21 16:23:00 [facility] COMP. METABOLIC PANEL (11860) 2023-12-21 16:23:00 Sonia Partida [facility] TOTAL BETA HCG ASSAY 2023-12-21 16:23:00 [place] Partida [facility] CBC WITH DIFF 2023-12-21 16:23:00 Sonia Partida [facility] URINALYSIS 2023-12-21 16:23:[address] [facility] SECOND AND THIRD TRIMESTER ULTRASOUND 2023-12-17 17:46:00 Marisol Payne [facility] SECOND AND THIRD TRIMESTER ULTRASOUND 2023-12-17 17:35:00 Marisol Payne [facility] TDAP VACCINE, >11 YRS, IM 2023-12-16 14:04:35 Marisol Payne [facility] CBC WITH DIFF 2023-11-18 15:10:00 Marisol Payne [facility] HEPATITIS B SURFACE ANTIGEN 2023-11-18 15:10:00 Marisol Payne [facility] HCV ANTIBODY 2023-11-18 15:10:00 Marisol Payne [facility] HB ABO GROUPING 2023-11-18 15:10:00 Marisol Payne [facility] HIV 1/2 AG-AB WITH REFLEX 2023-11-18 15:10:00 Marisol Payne [facility] PAP SMEAR-LIQUID BASED-CP 2023-11-18 15:10:00 Marisol Payne [facility] POCT TEST 2023-11-18 14:05:00 Taylor aPyne [facility] POCT URINALYSIS W/O SPECIFIC GRAVITY 2023-11-18 14:05:00 Marisol Payne [facility] TEST, SERUM 2023-02-04 04:45:00 Amanda Rodriguez [facility] COMP. METABOLIC PANEL (60311) 2023-02-04 04:45:00 Bo Rodriguez [facility] CBC WITH DIFF 2023-02-04 04:45:00 Bo Rodriguez [facility] URINALYSIS 2023-02-04 04:45[facility] 2023-02-04 04:45:00 Bo Rodriguez [facility] NOTICE OF PRIVACY PRACTICES 2023-02-04 04:22:51 Doctor Unassigned, Mertzon [facility] CONSENT/REFUSAL FOR DIAGNOSIS AND TREATMENT 2023-02-04 04:21:33 Doctor Unassigned, Mertzon [facility] TEST, SERUM 2022-11-27 00:34:00 Vega Tinsley [facility] BASIC METABOLIC PANEL (NA, K, CL, CO2, GLUCOSE, BUN, CREATININE, CA) 2022-11-27 00:34:00 Katie Tinsley [facility] CBC WITH DIFF 2022-11-27 00:34:00 Katie Tinsley [facility] HB ABO GROUPING 2022-11-27 00:34:00 Katie Tinsley [facility] NOTICE OF PRIVACY PRACTICES 2022-11-27 00:04:00 Doctor Unassigned, Mertzon [facility] CONSENT/REFUSAL FOR DIAGNOSIS AND TREATMENT 2022-11-27 00:02:34 Doctor Unassigned, Mertzon [facility] [id number] 2020-05-21 00:00:00 [facility] [id number] 2020-05-21 00:00:00 [facility] AUTHORIZATION FOR RELEASE OF PHI 2019-12-15 05:01:00 Doctor Unassigned, Mertzon [facility] POCT URINALYSIS 2019-11-10 00:00:00 Dionicio Angel [facility] URINE CULTURE 2019-11-02 19:48:00 Dionicio Angel [facility] GC & CHLAMYDIA AMPLIFIED ASSAY 2019-11-02 19:48:00 Sanjay [facility] TRICHOMONAS AMPLIFIED ASSAY 2019-11-02 19:48:00 Sanjay [facility] RUBELLA SCREEN IGG 2019-11-02 19:45:00 Cas Angel [facility] VZV ANTIBODY SCREEN 2019-11-02 19:45:00 Kalee Angel [facility] HEPATITIS B SURFACE ANTIGEN 2019-11-02 19:45:00 Dionicio Angel [facility] HB ABO GROUPING 2019-11-02 19:45:00 Dionicio Angel [facility] HIV 1/2 AG-AB WITH REFLEX 2019-11-02 19:45:00 Dionicio Angel [facility] GALV ONLY - SYPHILIS IGG/IGM 2019-11-02 19:45:00 Dionicio Angel [facility] SARS-COV-2 IGG 2019-11-02 19:45:00 Dionicio Angel [facility] ASSIGNMENT OF BENEFITS 2019-11-02 18:09:06 Docto r Unassigned, Mertzon [facility] POCT TEST 2019-11-02 00:00:00 Kalee Angel [facility] POCT URINALYSIS W/O SPECIFIC GRAVITY 2019-11-02 00:00:00 Dionicio Angel [facility] LIPASE 2019-10-06 22:26:00 Rainer Martinez [facility] COMP. METABOLIC PANEL (33281) 2019-10-06 22:26:00 Rainer Martinez [facility] TOTAL BETA HCG ASSAY 2019-10-06 22:26:00 Claudia Martinez [facility] CBC WITH DIFF 2019-10-06 22:26:00 Rainer Martinez [facility] URINALYSIS 2019-10-06 22:26:00 Rainer Martinez [facility] NOTICE OF PRIVACY PRACTICES 2019-10-06 22:12:54 Doctor Unassigned, Mertzon [facility] CONSENT/REFUSAL FOR DIAGNOSIS AND TREATMENT 2019-10-06 22:04:48 Doctor Unassigned, Mertzon [facility] Encounters Start Date/Time End Date/Time Encounter Type Admission Type Attending Clinicians Care Facility Care Department Encounter ID Source 2024-02-19 01:22:52 Outpatient X [facility] [id number] [facility] 2020-12-28 11:06:35 Emergency [facility] [id number] [facility] 2020-05-24 06:55:26 Inpatient ElysiaBryant [facility] [id number] 2020-05-16 23:19:09 Inpatient ElysiaBryant erickson [facility] [id number] [facility] 2020-05-02 22:03:36 Inpatient ElysiaBryant erickson [facility] [id number] [facility] 2024-02-22 00:00:00 2024-02-25 07:57:55 Abstract Marisol Payne [facility] 1..840.114 350.1.13.10 4.2.7.2.686 [id number] [facility] 2024-02-18 22:35:00 2024-02-19 00:11:00 Outpatient X RAJ SCOTT VIEN [facility] [id number] [facility] 2024-02-18 22:35:00 2024-02-19 00:11:00 Emergency Raj Scott [facility] ..840.114 350.1.13.10 4.2.7.2.686 [id number] [facility] 2024-02-18 00:00:00 2024-02-18 12:24:03 Telephone Marisol Payne [facility]ILD [facility] 1..840.114 350.1.13.10 4.2.7.2.686 [id number] 107 [id number] [facility] 2024-02-18 11:30:00 2024-02-18 11:30:00 Outpatient R MATEO GEORGE, MATEO GEORGE, MATEO [facility] [id number] [facility] 2024-02-04 15:00:00 2024-02-04 15:00:00 Outpatient R MARISOL PAYNE [facility] [id number] [facility] 2024-01-25 00:00:00 2024-01-25 07:48:35 Abstract Odell Christianson [facility] 1..840.114 350.1.13.10 4.2.7.2.686 [id number] 107 [id number] [facility] 2024-01-21 11:15:00 2024-01-21 16:47:51 Outpatient P MARISOL PAYNE [facility] [id number] [facility] 2024-01-21 11:15:00 2024-01-21 16:47:51 Occupational Therapy Program Director Visit Ultrasound, [facility] Vasquez [facility] 1..840.114 350.1.13.10 4.2.7.2.686 [id number] [facility] 2024-01-13 10:15:00 2024-01-13 10:15:00 Outpatient MARISOL HARRIS [facility] [id number] [facility] 2023-12-30 15:00:00 2023-12-30 15:53:02 Outpatient MARISOL HARRIS [facility] [id number] [facility] 2023-12-30 15:00:00 2023-12-30 15:53:02 Routine Visit Marisol Payne [facility] 1..840.114 350.1.13.10 4.2.7.2.686 [id number] 107 [id number] [facility] 2023-12-30 10:45:00 2023-12-30 10:45:00 Outpatient R MARISOL PAYNE [facility] [id number] [facility] 2023-12-21 10:12:00 2023-12-21 13:38:00 Emergency X SONIA PARTIDA [facility] [id number] [facility] 2023-12-21 10:12:00 2023-12-21 13:38:00 Emergency Sonia Partida [facility] 1..840.114 350.1.13.10 4.2.7.2.686 [id number] [facility] 2023-12-17 00:00:00 2023-12-18 08:09:52 Telephone Marisol Payne [facility]) 1.2.840.114 350.1.13.10 4.2.7.2.686 [id number] [facility] 2023-12-17 00:00:00 2023-12-17 16:53:40 Abstract Marisol Payne [facility] 1.2.840.114 350.1.13.10 4.2.7.2.686 [id number] 107 [id number] [facility] 2023-12-17 09:00:00 2023-12-17 13:00:04 Outpatient TALIA PAGE SHANNON [facility] [id number] [facility] 2023-12-17 09:00:00 2023-12-17 13:00:04 Occupational Therapy Program Director Visit 3, [facility] Room Talia Robb 3, [facility] Room [facility] 1.2.840.114 350.1.13.10 4.2.7.2.686 [id number] [facility] 2023-12-16 09:00:00 2023-12-16 09:47:08 Outpatient R MARISOL PAYNE [facility] [id number] [facility] 2023-12-16 09:00:00 2023-12-16 09:47:08 Routine Visit Marisol Payne [facility] 1.2.840.114 350.1.13.10 4.2.7.2.686 [id number] [facility] 2023-11-21 00:00:00 2023-11-24 09:45:17 Telephone Marisol Payne [facility] 1.2.840.114 350.1.13.10 4.2.7.2.686 [id number] 107 [id number] [facility] 2023-11-24 00:00:00 2023-11-24 08:43:22 Case Management Marisol Payne [facility] 1.2.840.114 350.1.13.10 4.2.7.2.686 [id number] [facility] 2023-11-19 00:00:00 2023-11-20 09:40:24 Telephone Marisol Payne [facility] 1..840.114 350.1.13.10 4.2.7.2.686 [id number] [facility] 2023-11-18 08:30:00 2023-11-18 10:12:59 Outpatient R KARLISHARRON MARISOL [facility] [id number] [facility] 2023-11-18 08:30:00 2023-11-18 10:12:59 Initial Visit KarliMarisol magdaleno [facility] 1.2.840.114 350.1.13.10 4.2.7.2.686 [id number] [facility] 2023-11-11 12:30:00 2023-11-11 12:30:00 Outpatient R ODELL CHRISTIANSON [facility] [id number] [facility] 2023-07-07 13:30:00 2023-07-07 13:30:00 Outpatient R ANYA WARNER [facility] [id number] [facility] 2023-02-03 22:37:00 2023-02-04 01:00:00 Emergency X BO RODRIGUEZ [facility] [id number] [facility] 2023-02-03 22:37:00 2023-02-04 01:00:00 Emergency Bo Rodriguez [place] 1.2.840.114 350.1.13.10 4.2.7.2.686 [id number] [facility] 2023-01-27 04:04:00 2023-01-27 04:51:00 Emergency X KEVIN REYNA [facility] [id number] [facility] 2022-12-29 00:00:00 2022-12-29 00:00:00 Outpatient GC_GCBZW_Ka diyala_S PRIV PRIV [id number] [facility] 2022-12-28 00:00:00 2022-12-28 00:00:00 Outpatient GC_GCBZW_Ka diyala_S PRIV PRIV [id number] [facility] 2022-12-09 13:30:00 2022-12-09 13:30:00 Outpatient R LY-HORACE S, BARBARA LY-HORACE S, BARBARA [facility] [id number] [facility] 2022-11-26 19:18:00 2022-11-26 20:42:00 Emergency X KATIE TINSLEY [facility] [id number] [facility] 2022-11-26 19:18:00 2022-11-26 20:42:00 Emergency Katie Tinsley Lee [place] 1.840.114 350.1.13.10 4.2.7.2.686 [id number] [facility] 2019-12-15 00:00:00 2019-12-15 00:00:00 Orders Only Doctor Unassigned, Mertzon [facility] 1.0.114 350.1.13.10 4.2.7.2.686 [id number] [facility] 2019-12-15 00:00:00 2019-12-15 00:00:00 Orders Only Doctor Unassigned, Mertzon [facility] 1.840.114 350.1.13.10 4.2.7.2.686 [id number] 2019-12-12 10:45:00 2019-12-12 10:45:00 Outpatient DIONICIO LORENZO [facility] [id number] [facility] 2019-12-06 00:00:00 2019-12-06 00:00:00 Telephone Dionicio Angel [facility] 1.2.840.114 350.1.13.10 4.2.7.2.686 [id number] [facility] 2019-12-06 00:00:00 2019-12-06 00:00:00 Telephone Dionicio Angel [facility] 1.2.840.114 350.1.13.10 4.2.7.2.686 [id number] 2019-11-30 13:00:00 2019-11-30 13:00:00 Outpatient R DIONICIO ANGEL [facility] [id number] [facility] 2019-11-30 09:00:00 2019-11-30 09:00:00 Outpatient R DIONICIO ANGEL [facility] [id number] [facility] 2019-11-17 13:30:00 2019-11-17 13:30:00 Outpatient P [facility] [id number] [facility] 2019-11-10 12:52:31 2019-11-10 13:34:11 Routine Visit Dionicio Angel [facility] 1.2.840.114 350.1.13.10 4.2.7.2.686 [id number] [facility] 2019-11-10 12:52:31 2019-11-10 13:34:11 Routine Visit Dionicio Angel [facility] 1.2.840.114 350.1.13.10 4.2.7.2.686 [id number] 2019-11-10 12:45:00 2019-11-10 12:45:00 Outpatient R DIONICIO ANGEL [facility] [id number] [facility] 2019-11-02 13:25:22 2019-11-02 14:49:05 Initial Visit Dionicio Angel [facility] 1.2.840.114 350.1.13.10 4.2.7.2.686 [id number] [facility] 2019-11-02 13:25:22 2019-11-02 14:49:05 Initial Visit Dionicio Angel [facility] 1.2.840.114 350.1.13.10 4.2.7.2.686 [id number] 2019-11-02 12:45:00 2019-11-02 12:45:00 Outpatient R DIONICIO ANGEL [facility] [id number] [facility] 2019-11-02 00:00:00 2019-11-02 00:00:00 Orders Only Doctor Unassigned, Mertzon [facility] 1.2840.114 350.1.13.10 4.2.7.2.686 [id number] [facility] 2019-10-06 17:11:00 2019-10-06 19:06:00 Emergency Rainer Martinez [facility] 1.2.840.114 350.1.13.10 4.2.7.2.686 [id number] [facility] 2019-10-06 00:00:00 2019-10-06 00:00:00 Orders Only Doctor Unassigned, Mertzon [facility] 1.2840.114 350.1.13.10 4.2.7.2.686 [id number] [facility] 2019-05-23 15:41:09 2019-05-23 16:11:09 Telemedici ne Visit Flora Bryant [facility] 1.2.840.114 350.1.13.10 4.2.7.2.686 [id number] [facility] 2019-05-23 15:45:00 2019-05-23 15:45:00 Outpatient R FLORA BRYANT [facility] [id number] [facility] Results Test Description Test Time Test Comments Results Result Co mments Source [facility] [id number] 17:24:33* Test Item Value Reference Range Interpretation Comme nts BETA HCG (test code = 9465759362) 5296.70 See_Comment [Automated Glansea ge] The system which generated this result transmitted reference range: Non- female and male patients: <5 mIU/mL. The reference range was not used to interpret this result as normal/abnormal. EFE (test code = EFE) Gestational Age ?Range (mIU/mL) 1-10 ?Weeks ?[id number] Weeks ?11920-32555550-52 Weeks ?1335-72868600-32 Weeks ?[id number] Biotin has been reported to cause a negative bias, interpret results relative to patient's use of biotin. [facility] Met[facility] [id number] 17:07:30* Test Item Value Reference Range Interpretation Comme nts NA (test code = 9251930615) 135 mmol/L 135-145 K (test code = 4972081409) 4.0 mmol/L 3.5-5.0 CL (test code = 2700902715) 108 mmol/L 98-108 CO2 TOTAL (test code = 2835277490) 21 mmol/L 23-31 L AGAP (test code = 8738644110) 6 2-16 BUN (test code = 1614799156) 5 mg/dL 7-23 L GLUCOSE (test code = 3646379318) 79 mg/dL 70-110 CREATININE (test code = 2160-0) 0.44 mg/dL 0.50-1.04 L TOTAL BILI (test code = 9480722768) 0.5 mg/dL 0.1-1.1 CALCIUM (test code = 8354924941) 8.9 mg/dL 8.6-10.6 T PROTEIN (test code = 1447468581) 7.4 g/dL 6.3-8.2 ALBUMIN (test code = 0001635871) 3.5 g/dL 3.5-5.0 ALK PHOS (test code = 4814388272) 62 U/L 34-122 ALTv (test code = 1742-6) 11 U/L 5-35 AST(SGOT) (test code = 5278606881) 23 U/L 13-40 eGFR (test code = 71706-1) 141.3 mL/min/1.73m2 CKD-EPI eGFR (2020). Assuming creatinine has been stable day-to-day for at least three months, the eGFR indicates Category G1 (>= 90 mL/min/1.73 m2) Lab Interpretation (test code = 41835-2) [facility]normal [facility] WorthLipase, [id number] 17:06:49* Test Item Value Reference Range Interpretation Comme nts LIPASE (test code = 5591069120) 139 U/L 0-220 Lab Interpretation (test cod e = 84103-4) Normal [facility] WorthCBC with [id number] 16:55:08* Test Item Value Reference Range Interpretation Comme nts WBC (test code = 6690-2) 7.47 4.30-11.10 RBC (test code = 789-8) 3.82 3.93-5.25 L HGB (test code = 718-7) 7.3 g/dL 11.6-15.0 L HCT (test code = 4544-3) 25.8 % 35.7-45.2 L MCV (test code = 787-2) 67.5 fL 80.6-95.5 L MCH (test code = 785-6) 19.1 pg 25.9-32.8 L MCHC (test code = 786-4) 28.3 g/dL 31.6-35.1 L RDW-SD (test code = 87324-9) 43.8 fL 39.0-49.9 RDW-CV (test code = 788-0) 18.5 % 12.0-15.5 H PLT (test code = 777-3) 265 166-358 MPV (test code = 42878-5) 10.6 fL 9.5-12.9 NRBC/100 WBC (test code = 0888316497) 0.4 0.0-10.0 NRBC x10^3 (test code = 2813315110) 0.03 See_Comment [Automated messa ge] The system which generated this result transmitted reference range: 10*3/?L. The reference range was not used to interpret this result as normal/abnormal. GRAN MAT (NEUT) % (test code = 770-8) 70.1 % IMM GRAN % (test code = 0176810218) 0.40 % LYMPH % (test code = 736-9) 17.9 % MONO % (test code = 5905-5) 8.0 % EOS % (test code = 713-8) 3.2 % BASO % (test code = 706-2) 0.4 % GRAN MAT x10^3(ANC) (test code = 8485066809) 5.23 10*3/uL 1.88-7.09 IMM GRAN x10^3 (test code = 0312437902) 0.03 10*3/uL 0.00-0.06 LYMPH x10^3 (test code = 731-0) 1.34 10*3/uL 1.32-3.29 MONO x10^3 (test code = 742-7) 0.60 10*3/uL 0.33-0.92 EOS x10^3 (test code = 711-2) 0.24 10*3/uL 0.03-0.39 BASO x10^3 (test code = 704-7) 0.03 10*3/uL 0.01-0.07 Lab Interpretation (test code = 69276-1) Abnormal [facility] [id number] 16:25:00* Test Item Value Reference Range Interpretation Comme nts POCT PREG (test code = 1605) Positive On board controls acceptable with C Line (test code = 3574) Yes POCT PREG LOT # (test code = 3575) [id number] POCT PREG TEST DATE ( test code = 3576) 12-04-2024 Lab Interpretation (test cod e = 73930-9) Normal [facility] WorthHIV 1/2 AG-AB WITH [id number] 12:20:45* Test Item Value Reference Range Interpretation Comme nts HIV Semi-quantitative (test code = 26157-0) 0.14 Negative EFE (test code = EFE) Non-reactive for HIV-1 antigen and HIV-1/HIV-2 antibodies. ?No laboratory evidence of HIV infection. ?Repeat in 2-4 weeks if acute HIV infection is suspected. [facility] WorthHCV [id number] 11:24:42* Test Item Value Reference Range Interpretation Comme nts HCV Ab (test code = 92031-6) Negative HCV Semi-Quantitative (test code = 78005-7) 0.02 [facility] WorthHEPATITIS B SURFACE [id number] 11:06:57 * Test Item Value Reference Range Interpretation Comme nts HBsAg Semi-Quantitative (silvino t code = 5195-3) 0.12 Negative [facility] WorthCBC WITH [id number] 03:55:57* Test Item Value Reference Range Interpretation Comme nts WBC (test code = 6690-2) 8.12 4.30-11.10 RBC (test code = 789-8) 4.33 3.93-5.25 HGB (test code = 718-7) 8.4 g/dL 11.6-15.0 L HCT (test code = 4544-3) 29.3 % 35.7-45.2 L MCV (test code = 787-2) 67.7 fL 80.6-95.5 L MCH (test code = 785-6) 19.4 pg 25.9-32.8 L MCHC (test code = 786-4) 28.7 g/dL 31.6-35.1 L RDW-SD (test code = 69424-1) 44.7 fL 39.0-49.9 RDW-CV (test code = 788-0) 18.5 % 12.0-15.5 H PLT (test code = 777-3) 296 166-358 MPV (test code = 04145-4) 10.4 fL 9.5-12.9 NRBC/100 WBC (test code = 9833380393) 0.0 0.0-10.0 NRBC x10^3 (test code = 6955516997) See_Comment [Automated messa ge] The system which generated this result transmitted reference range: 10*3/?L. The reference range was not used to interpret this result as normal/abnormal. GRAN MAT (NEUT) % (test code = 770-8) 60.1 % IMM GRAN % (test code = 2283610466) 0.20 % LYMPH % (test code = 736-9) 29.1 % MONO % (test code = 5905-5) 7.6 % EOS % (test code = 713-8) 2.5 % BASO % (test code = 706-2) 0.5 % GRAN MAT x10^3(ANC) (test code = 7548010985) 4.88 10*3/uL 1.88-7.09 IMM GRAN x10^3 (test code = 5250644300) 0.00-0.06 LYMPH x10^3 (test code = 731-0) 2.36 10*3/uL 1.32-3.29 MONO x10^3 (test code = 742-7) 0.62 10*3/uL 0.33-0.92 EOS x10^3 (test code = 711-2) 0.20 10*3/uL 0.03-0.39 BASO x10^3 (test code = 704-7) 0.04 10*3/uL 0.01-0.07 Lab Interpretation (test code = 69536-6) Abnormal [facility] WorthPRENATAL WORKUP, BLOOD [id number] 15:43:00 * Test Item Value Reference Range Interpretation Comme nts ABO & RH (test code = 20) O POSITIVE IAT (test code = 1185) Negative [facility] WorthPOCT Urinalysis w/o Specific [id number] 14:06:00* Test Item Value Reference Range Interpretation Comme nts POCT PH U (test code = 3254) 5 mg/dl 5-8 POCT U LEUK EST (test code = 9763) 2+ Negative - Negative POCT U NIT (test code = 3262) Neg Negative - Negati ve POCT U PROT (test code = 3259) Trace Negative - Negat caty POCT U GLU (test code = 3256) Nml Negative - Negati ve POCT U KETONE (test code = 3258) None Negative - Neg ative POCT U BLD (test code = 3257) Trace Negative - Negati ve [facility] WorthPOCT [id number] 14:05:00* Test Item Value Reference Range Interpretation Comme nts POCT PREG (test code = 1605) Positive On board controls acceptable with C Line (test code = 3574) Yes POCT PREG LOT # (test code = 3575) POCT PREG TEST DATE ( test code = 3576) [facility] WorthPREGNANCY TEST, [id number] 05:20:41* Test Item Value Reference Range Interpretation Comme nts PREG SERUM (test code = 3955248951) Negative EFE (test code = EFE) Less than 10 IU/L. ?If low titer or ectopic is suspected, resubmit specimen in 48-72 hours. [facility]. METABOLIC PANEL (28786)2023-02-04 05:19:15* Test Item Value Reference Range Interpretation Comme nts NA (test code = 3250848648) 140 mmol/L 135-145 K (test code = 2963400489) 4.0 mmol/L 3.5-5.0 CL (test code = 8608142655) 106 mmol/L 98-108 CO2 TOTAL (test code = 5064498212) 24 mmol/L 23-31 AGAP (test code = 9023711799) 10 2-16 BUN (test code = 5141712920) 8 mg/dL 7-23 GLUCOSE (test code = 4388593394) 94 mg/dL 70-110 CREATININE (test code = 0705022887) 0.70 mg/dL 0.50-1.04 TOTAL BILI (test code = 8828357214) 0.5 mg/dL 0.1-1.1 CALCIUM (test code = 3770476103) 9.7 mg/dL 8.6-10.6 T PROTEIN (test code = 0958893752) 9.0 g/dL 6.3-8.2 H ALBUMIN (test code = 1670514125) 4.8 g/dL 3.5-5.0 ALK PHOS (test code = 4783320307) 60 U/L 34-122 ALTv (test code = 1742-6) 14 U/L 5-35 AST(SGOT) (test code = 7518117528) 26 U/L 13-40 eGFR (test code = 91092-2) 126.4 mL/min/1.73m2 CKD-EPI eGFR (2020). Assuming creatinine has been stable day-to-day for at least three months, the eGFR indicates Category G1 (>= 90 mL/min/1.73 m2) Lab Interpretation (test code = 05948-0) Abnormal [facility] WITH [id number] 05:05:35* Test Item Value Reference Range Interpretation Comme nts WBC (test code = 6690-2) 5.12 See_Comment [Automated messa ge] The system which generated this result transmitted reference range: 4.30 - 11.10 10*3/?L. The reference range was not used to interpret this result as normal/abnormal. RBC (test code = 789-8) 5.29 See_Comment H [Automated messa ge] The system [...] g/dL 31.6-35.1 L RDW-SD (test code = 35916-5) 43.7 fL 39.0-49.9 RDW-CV (test code = 788-0) 18.6 % 12.0-15.5 H PLT (test code = 777-3) 397 See_Comment H [Automated messa ge] The system which generated this result transmitted reference range: 166 - 358 10*3/?L. The reference range was not used to interpret this result as normal/abnormal. MPV (test code = 36891-6) 10.4 fL 9.5-12.9 NRBC/100 WBC (test code = 7541154162) 0.0 See_Comment [Automated me ssage] The system which generated this result transmitted reference range: 0.0 - 10.0 /100 WBCs. The reference range was not used to interpret this result as normal/abnormal. NRBC x10^3 (test code = 3711459605) See_Comment [Automated messa ge] The system which generated this result transmitted reference range: 10*3/?L. The reference range was not used to interpret this result as normal/abnormal. GRAN MAT (NEUT) % (test code = 770-8) 45.7 % IMM GRAN % (test code = 6206164947) 0.20 % LYMPH % (test code = 736-9) 44.7 % MONO % (test code = 5905-5) 7.6 % EOS % (test code = 713-8) 1.0 % BASO % (test code = 706-2) 0.8 % GRAN MAT x10^3(ANC) (test code = 6212682710) 2.34 10*3/uL 1.88-7.09 IMM GRAN x10^3 (test code = 9343320231) 0.00-0.06 LYMPH x10^3 (test code = 731-0) 2.29 10*3/uL 1.32-3.29 MONO x10^3 (test code = 742-7) 0.39 10*3/uL 0.33-0.92 EOS x10^3 (test code = 711-2) 0.05 10*3/uL 0.03-0.39 BASO x10^3 (test code = 704-7) 0.04 10*3/uL 0.01-0.07 Lab Interpretation (test code = 84823-2) Abnormal [facility] WorthType and Screen - ONCE [id number] 05:03:00 * Test Item Value Reference Range Interpretation Comme nts ABO & RH (test code = 20) O Positive IAT (test code = 1185) Negative [facility]BAS[facility] (NA, K, CL, CO2, GLUCOSE, BUN, CREATININE, CA)2022-11-27 01:10:44* Test Item Value Reference Range Interpretation Comme nts NA (test code = 8465656853) 140 mmol/L 135-145 K (test code = 8004564726) 4.0 mmol/L 3.5-5.0 CL (test code = 7344779467) 108 mmol/L 98-108 CO2 TOTAL (test code = 2792897587) 25 mmol/L 23-31 AGAP (test code = 6589455331) 7 2-16 BUN (test code = 2805169437) 10 mg/dL 7-23 GLUCOSE (test code = 3361987464) 90 mg/dL 70-110 CREATININE (test code = 8243141420) 0.66 mg/dL 0.50-1.04 CALCIUM (test code = 6657918788) 9.3 mg/dL 8.6-10.6 eGFR (test code = 3491371533) 114.2 mL/min/1.73m2 EFE (test code = EFE) [...] or urine or abnormalities in imaging tests). [facility] WorthPREGNANCY TEST, [id number] 01:09:49* Test Item Value Reference Range Interpretation Comme nts PREG SERUM (test code = 8382330664) Negative EFE (test code = EFE) Less than 10 IU/L. ?If low titer or ectopic is suspected, resubmit specimen in 48-72 hours. [facility] WorthCB WITH [id number] 00:58:05* Test Item Value Reference Range Interpretation Comme nts WBC (test code = 6690-2) 5.27 See_Comment [Automated Glansea ge] The system which generated this result transmitted reference range: 4.30 - 11.10 10*3/?L. The reference range was not used to interpret this result as normal/abnormal. RBC (test code = 789-8) 5.05 See_Comment [Automated Glansea ge] The system which generated this result [...] g/dL 31.6-35.1 L RDW-SD (test code = 62079-7) 43.4 fL 39.0-49.9 RDW-CV (test code = 788-0) 17.9 % 12.0-15.5 H PLT (test code = 777-3) 336 See_Comment [Automated Glansea ge] The system which generated this result transmitted reference range: 166 - 358 10*3/?L. The reference range was not used to interpret this result as normal/abnormal. MPV (test code = 05266-3) 10.8 fL 9.5-12.9 NRBC/100 WBC (test code = 8054839209) 0.0 See_Comment [Automated me ssage] The system which generated this result transmitted reference range: 0.0 - 10.0 /100 WBCs. The reference range was not used to interpret this result as normal/abnormal. NRBC x10^3 (test code = 4290672601) See_Comment [Automated messa ge] The system which generated this result transmitted reference range: 10*3/?L. The reference range was not used to interpret this result as normal/abnormal. GRAN MAT (NEUT) % (test code = 770-8) 49.5 % IMM GRAN % (test code = 2310284054) 0.00 % LYMPH % (test code = 736-9) 40.0 % MONO % (test code = 5905-5) 7.8 % EOS % (test code = 713-8) 2.1 % BASO % (test code = 706-2) 0.6 % GRAN MAT x10^3(ANC) (test code = 8707921165) 2.61 10*3/uL 1.88-7.09 IMM GRAN x10^3 (test code = 6794899393) 0.00-0.06 LYMPH x10^3 (test code = 731-0) 2.11 10*3/uL 1.32-3.29 MONO x10^3 (test code = 742-7) 0.41 10*3/uL 0.33-0.92 EOS x10^3 (test code = 711-2) 0.11 10*3/uL 0.03-0.39 BASO x10^3 (test code = 704-7) 0.03 10*3/uL 0.01-0.07 Lab Interpretation (test code = 96748-4) Abnormal [facility] WorthType and Screen - ONCE [id number] 00:53:00 * Test Item Value Reference Range Interpretation Comme nts ABO & RH (test code = 20) O Positive IAT (test code = 1185) Negative [facility] WorthPLACENTA THIRD [id number] 18:24:00* Test Item Value Reference Range Interpretation Comme nts PLACENTA THIRD TRIMESTER (test code = PLACIII) RUN DATE: 05/23/20 [facility] PAGE 1 RUN TIME: 948 Specimen Inquiry RUN USER: INTERFACE BRENNAN ENT: JAMEEL CASTILLO LOC: JAELYNKARL U #: [id number] AGE/SX: 20/F ROOM: [facility] RE05/20/20REG DR: Bryant Naidu MD : 02 BED: A DIS: 05/22/20 STATUS: DIS IN TLOC: SPEC #: [id number] RECD: 05/21/20 STATUS: APOLINAR RAYGOZA #: [id number] NELLIE: 05/21/20- SUBM DR: Bryant Naidu MD ENTERED: 05/21/20 SP TYPE: PLACIII OTHR DR: Carlton Ramirez MD ORDERED: LEVEL V SURGICA CODES: [id number] - PLACENTA, NOS COPIES TO: Bryant Naidu MD [address] [place], [place] [id number] Carlton Ramirez MD [address], [address] [place], [place] [id number] [email or web address] PROCEDURES: LEVEL V SURGICA (Incomplete) TISSUES: PLACENTA, NOS - PLACENTA CLINICAL HISTORY 20 year old, 38.2 weeks, vaginal delivery, PROM (leonarda) FINAL DIAGNOSIS Placenta, 38.2 weeks gestational age, vaginal delivery: - third trimester placenta, 465 gms (40th percentile) - accelerated villous maturation - meconium macrophages within membranes - trivascular umbilical cord and membranes free of inflammation CPT: 79812 [facility]/d GROSS DESCRIPTION The specimen was received in a container, labeled with the patient's name, unit number and designated "placenta". The following attributes are observed: Cord insertion: 5 cm from margin Cord length: 35 cm CONTINUED ON NEXT PAGE RUN DATE: 05/23/20 [facility] PAGE 2 RUN TIME: 948 Specimen Inquiry RUN USER: INTERFACE SPEC #: [id number] PATIENT: JAMEEL CASTILLO #[id number] (Continued) ------- GROSS DESCRIPTION (Continued) Number of [...] MD 05/22/20 1824 END OF REPORT RUBELLA [id number] 17:06:00* Test Item Value Reference Range Interpretation Comme nts RUBELLA SCREEN (test code = RUBSC) 18.3 IUnit/ml Results >10.0IUn its/ml are considered positive inaccordance with the CLSI guidelines and based on the WHO International Standard for Anti-Rubella serum as anindicator of immune status and a breakpoint to detect mostseropositive persons. AG HEPATITIS B [id number] 13:32:00* Test Item Value Reference Range Interpretation Comme nts AG HEPATITIS B SURFACE (test code = HBSAG) NONREACTIVE NONREACTIVE IS CONSENT FORM SIGNED FOR HIV TESTING? YAB HEPATITIS C [id number] 13:32:00* Test Item Value Reference Range Interpretation Comme nts AB HEPATITIS C (test code = HCVAB) NONREACTIVE NONREACTIVE SIGNAL TO CUTOFF (test code = CUTOFF) 0.03 <0.80 N IS CONSENT FORM SIGNED FOR HIV TESTING? YAB [id number] 13:32:00* Test Item Value Reference Range Interpretation Comme nts AB TREPONEMA (test code = TREPAB) NONREACTIVE NONREACTIVE IS CONSENT FORM SIGNED FOR HIV TESTING? YAB HIV 1 13:32:00* Test Item Value Reference Range Interpretation Comme nts AB HIV 1 2 (test code = NQH03IU) NONREACTIVE NONREACTIVE Done by [employer] 4th Gen HIV Ag/Ab Combo Screen IS CONSENT FORM SIGNED FOR HIV TESTING? YAG HEPATITIS B [id number] 12:53:00* Test Item Value Reference Range Interpretation Comme nts AG HEPATITIS B SURFACE (test code = HBSAG) NONREACTIVE NONREACTIVE IS CONSENT FORM SIGNED FOR HIV TESTING? YAB HEPATITIS C [id number] 12:53:00* Test Item Value Reference Range Interpretation Comme nts AB HEPATITIS C (test code = HCVAB) NONREACTIVE SIGNAL TO CUTOFF (test code = CUTOFF) <0.80 IS CONSENT FORM SIGNED FOR HIV TESTING? YAB [id number] 12:53:00* Test Item Value Reference Range Interpretation Comme nts AB TREPONEMA (test code = TREPAB) NONREACTIVE NONREACTIVE IS CONSENT FORM SIGNED FOR HIV TESTING? YAB HIV 1 12:53:00* Test Item Value Reference Range Interpretation Comme nts AB HIV 1 2 (test code = ERZ93HK) NONREACTIVE IS CONSENT FORM SIGNED FOR HIV TESTING? YCOVID 19 Asymptomatic IH [id number] 12:51:00* Test Item Value Reference Range Interpretation [...] testsfor detection and/or diagnosis of COVID-19 under Ukllcov613(b)(1) of the Act, 21 U.S.C. 360bbb-3(b)(1), unless theauthorization is terminated or revoked sooner. CBC W/AUTO [id number] 12:13:00* Test Item Value Reference Range Interpretation [...] code = PLTMR) NORMAL NORMAL RUPTURE OF [id number] 12:03:00* Test Item Value Reference Range Interpretation Comme nts RUPTURE OF MEMBRANES (test c ode = ROM) RUPTURED UA RFLX MICR CULT IF [id number] 04:13:00* Test Item Value Reference Range Interpretation [...] culture: Suprapubic PainSpecimen Description: CLEAN CATCHCBC W/AUTO [id number] 23:41:00* Test Item Value Reference Range Interpretation [...] PLTMR) NORMAL NORMAL POCT URINALYSIS W SPECIFIC [id number] 18:01:00* Test Item Value Reference Range Interpretation [...] POCT U APPEAR (test code = 3267) [facility] WorthURINE [id number] 12:19:00* Test Item Value Reference Range Interpretation Comme nts URINE CULTURE (test code = 630-4) 10,000 - 100,000 CFU/mL mixed aerobic organisms - suggests endogenous microbial contamination EFE (test code = EFE) <50,000 CFU/mL [facility] WorthGC & CHLAMYDIA AMPLIFIED [id number] 18:41:00* Test Item Value Reference Range Interpretation Comme nts C. trachomatis Nucleic Acid (test code = 96172-9) Negative Negative N. gonorrhoeae Nucleic Acid (test code = 00070-2) Negative Negative EFE (test code = EFE) [...] gonorrhoeae NAAT. Lab Interpretation (test code = 74967-1) Normal [facility] WorthTRICHOMONAS AMPLIFIED [id number] 18:36:00 * Test Item Value Reference Range Interpretation Comme nts Trichomonas Nucleic Acid (test code = 65196-0) Negative Negative EFE (test code = EFE) [...] the clinician. Lab Interpretation (test code = 99235-6) Normal [facility] WorthRUBELLA SCREEN (ALEJANDRO) [id number] 17:32:00 * Test Item Value Reference Range Interpretation Comme nts Rubella screen IgG (test code = 7684911759) Positive Negative EFE (test code = EFE) Positive - Indicat es the patient was exposed to Rubella through infection or vaccination.Negative - Indicates the patient could be susceptible to Rubella infection.Equivocal - A second specimen should be sent. [facility] WorthVZV ANTIBODY [id number] 17:32:00* Test Item Value Reference Range Interpretation Comme nts VZV IgG antibody (test code = 53640-8) Negative Negative EFE (test code = EFE) Positive - Indicat es the patient was exposed to VZV through infection or vaccination.Negative - Indicates the patient could be susceptible to VZV infection.Equivocal - A second specimen should be sent for testing. [facility] WorthGALV ONLY - SYPHILIS [id number] 16:34:00* Test Item Value Reference Range Interpretation Comme nts Syphilis IgG/IgM (test code = 41335-2) Non-reactive Non-reactive EFE (test code = EFE) Non-reactive - No serologic evidence of T. pallidum infection. Cannot exclude incubating or early syphilis. Submit a second specimen in 2-4 weeks if syphilis is clinically suspected. Equivocal - Further testing to follow. Reactive - Further testing to follow. Lab Interpretation (test code = 87365-6) Normal [facility] WorthSARS-COV-2 [id number] 06:44:00* Test Item Value Reference Range Interpretation Comme nts CoV-2 IgG (test code = 05368-7) Negative Negative Negative result does not rule out acute SARS-CoV-2 infection. Clinical correlation as well as molecular diagnostic test are recommended to rule out acute infection if clinically indicated. EFE (test code = EFE) This test has been approved by FDA for emergency use.This test has been approved by FDA for emergency use. Lab Interpretation (test code = 66018-5) Normal [facility] WorthHIV 1/2 AG-AB WITH [id number] 06:13:00* Test Item Value Reference Range Interpretation Comme nts HIV Semi-quantitative (test code = 09549-2) Negative Negative EFE (test code = EFE) Non-reactive for HIV-1 antigen and HIV-1/HIV-2 antibodies. ?No laboratory evidence of HIV infection. ?Repeat in 2-4 weeks if acute HIV infection is suspected. [facility] WorthHEPATITIS B SURFACE [id number] 04:29:00 * Test Item Value Reference Range Interpretation Comme nts HBsAg Semi-Quantitative (silvino t code = 5195-3) Negative Negative [facility] WorthPRENATAL [facility], BLOOD [id number] 04:26:11 * Test Item Value Reference Range Interpretation Comme nts ABO & RH (test code = 20) O POSITIVE Per[facility] - [facility] Blood [address] [place] [address]Lful Free: [phone] No. [id number] IAT (test code = 1185) Negative Performed at [facility] Laboratory Services [facility] Blood [address] [address]Wncq Free: [phone] No. [id number] [facility]/O SPECIFIC [id number] 18:27:00* Test Item Value Reference Range Interpretation [...] = 3257) neg Negative - Negati ve [facility] WorthPOCT URINALYSIS W/O SPECIFIC [id number] 18:27:00* Test Item Value Reference Range Interpretation [...] = 3257) neg Negative - Negati ve [facility] WorthPOCT URINALYSIS W/O SPECIFIC [id number] 18:27:00* Test Item Value Reference Range Interpretation [...] = 3257) neg Negative - Negati ve [facility] URINALYSIS W/O SPECIFIC [id number] 18:27:00* Test Item Value Reference Range Interpretation [...] = 3257) neg Negative - Negati ve [facility] URINALYSIS W/O SPECIFIC [id number] 18:27:00* Test Item Value Reference Range Interpretation [...] = 3257) neg Negative - Negati ve [facility] URINALYSIS W/O SPECIFIC [id number] 18:27:00* Test Item Value Reference Range Interpretation [...] = 3257) neg Negative - Negati ve [facility] URINALYSIS W/O SPECIFIC [id number] 18:27:00* Test Item Value Reference Range Interpretation [...] = 3257) neg Negative - Negati ve [facility] [id number] 18:26:00* Test Item Value Reference Range Interpretation Comme nts POCT PREG (test code = 1605) Positive On board controls acceptable with C Line (test code = 3574) No POCT PREG LOT # (test code = 3575) POCT PREG TEST DATE ( test code = 3576) [facility] [id number] 18:26:00* Test Item Value Reference Range Interpretation Comme nts POCT PREG (test code = 1605) Positive On board controls acceptable with C Line (test code = 3574) No POCT PREG LOT # (test code = 3575) POCT PREG TEST DATE ( test code = 3576) [facility] [id number] 18:26:00* Test Item Value Reference Range Interpretation Comme nts POCT PREG (test code = 1605) Positive On board controls acceptable with C Line (test code = 3574) No POCT PREG LOT # (test code = 3575) POCT PREG TEST DATE ( test code = 3576) [facility] [id number] 18:26:00* Test Item Value Reference Range Interpretation Comme nts POCT PREG (test code = 1605) Positive On board controls acceptable with C Line (test code = 3574) No POCT PREG LOT # (test code = 3575) POCT PREG TEST DATE ( test code = 3576) [facility] [id number] 18:26:00* Test Item Value Reference Range Interpretation Comme nts POCT PREG (test code = 1605) Positive On board controls acceptable with C Line (test code = 3574) No POCT PREG LOT # (test code = 3575) POCT PREG TEST DATE ( test code = 3576) [facility] [id number] 18:26:00* Test Item Value Reference Range Interpretation Comme nts POCT PREG (test code = 1605) Positive On board controls acceptable with C Line (test code = 3574) No POCT PREG LOT # (test code = 3575) POCT PREG TEST DATE ( test code = 3576) [facility] [id number] 18:26:00* Test Item Value Reference Range Interpretation Comme nts POCT PREG (test code = 1605) Positive On board controls acceptable with C Line (test code = 3574) No POCT PREG LOT # (test code = 3575) POCT PREG TEST DATE ( test code = 3576) [facility] (QUANTITATIVE)2019-10-06 23:36:00* Test Item Value Reference Range Interpretation Comme nts BETA HCG (test code = 9233600063) See_Comment [Automated Glansea ge] The system which generated this result transmitted reference range: Non- female and male patients: <5 mIU/mL. The reference range was not used to interpret this result as normal/abnormal. EFE (test code = EFE) Gestational Age ?Range (mIU/mL) 1-10 ?Weeks ?[id number] Weeks ?[id number] Weeks ?2940-64558456-08 Weeks ?4543-742181 Biotin has been reported to cause a negative bias, interpret results relative to patient's use of biotin. [facility]. METABOLIC PANEL (92813)2019-10-06 22:52:00* Test Item Value Reference Range Interpretation Comme nts NA (test code = 9164840055) 134 mmol/L 135-145 L K (test code = 2872145043) 3.8 mmol/L 3.5-5 CL (test code = 3635271744) 104 mmol/L 98-108 CO2 TOTAL (test code = 7074730915) 19 mmol/L 23-31 L AGAP (test code = 8492404235) 2-16 BUN (test code = 5957093967) 9 mg/dL 7-23 GLUCOSE (test code = 9643133476) 90 mg/dL 70-110 CREATININE (test code = 0245085382) 0.54 mg/dL 0.5-1.04 TOTAL BILI (test code = 4634992337) 0.4 mg/dL 0.1-1.1 CALCIUM (test code = 4310583822) 9.5 mg/dL 8.6-10.6 T PROTEIN (test code = 3875651703) 8.7 g/dL 6.3-8.2 H ALBUMIN (test code = 9598254342) 4.6 g/dL 3.5-5 ALK PHOS (test code = 1754669452) 66 U/L 34-122 ALTv (test code = 1742-6) 12 U/L 5-35 AST(SGOT) (test code = 2470513316) 25 U/L 13-40 EFE (test code = [...] imaging tests). Lab Interpretation (test code = 63319-2) [id number] 22:52:00* Test Item Value Reference Range Interpretation Comme nts LIPASE (test code = 5792443887) 157 U/L 0-220 Lab Interpretation (test cod e = 83787-2) Normal [facility] 22:48:00* Test Item Value Reference Range Interpretation Comme nts APPEARANCE (test code = 2992676604) Hazy Clear A COLOR (test code = 3478195618) Yellow Yellow PH (test code = 4964955401) 4.8-8.0 SP GRAVITY (test code = 7067378201) 1.003-1.030 GLU U QUAL (test code = 1724006614) Normal Normal BLOOD (test code = 0878119915) Negative Negative KETONES (test code = 8646449406) 80 mg/dL Negative A PROTEIN (test code = 2887-8) Negative Negative UROBILIN (test code = 9649615186) Normal Normal BILIRUBIN (test code = 6617094776) Negative Negative NITRITE (test code = 7742610486) Negative Negative LEUK IRMA (test code = 3415059683) 25/uL Negative A RBC/HPF (test code = 2097290140) See_Comment [Automated Simple Star] The system which generated this result transmitted reference range: 0 - 3 HPF. The reference range was not used to interpret this result as normal/abnormal. WBC/HPF (test code = 3051982924) See_Comment [Automated Simple Star] The system which generated this result transmitted reference range: 0 - 5 HPF. The reference range was not used to interpret this result as normal/abnormal. BACTERIA (test code = 6308247024) Many Negative A MUCOUS (test code = 5009735312) Marked Negative LPF A SQ EPITH (test code = 5585999018) HPF Lab Interpretation (test code = 30059-0) Abnormal [facility] with [id number] 22:33:00* Test Item Value Reference Range Interpretation [...] g/dL 32-36 L RDW-SD (test code = 30933-0) 45.6 fL 38.5-49 RDW-CV (test code = 788-0) 20.9 % 11.5-14 H PLT (test code = 777-3) See_Comment H [Automated messa ge] The system which generated this result transmitted reference range: 135 - 361 10*3/?L. The reference range was not used to interpret this result as normal/abnormal. MPV (test code = 23289-9) 10.2 fL 9.4-13.3 NRBC/100 WBC (test code = 1871816322) See_Comment [Automated me ssage] The system which generated this result transmitted reference range: 0.0 - 10.0 /100 WBCs. The reference range was not used to interpret this result as normal/abnormal. NRBC x10^3 (test code = 3654581405) <0.01 See_Comment [Automated messa ge] The system which generated this result transmitted reference range: 10*3/?L. The reference range was not used to interpret this result as normal/abnormal. GRAN MAT (NEUT) % (test code = 770-8) 71.3 % IMM GRAN % (test code = 3349169746) 0.20 % LYMPH % (test code = 736-9) 20.7 % MONO % (test code = 5905-5) 7.1 % EOS % (test code = 713-8) 0.1 % BASO % (test code = 706-2) 0.6 % GRAN MAT x10^3(ANC) (test code = 9823447350) 5.89 10*3/uL 1.5-10.3 IMM GRAN x10^3 (test code = 2425059500) <0.03 0-0.06 LYMPH x10^3 (test code = 731-0) 1.71 10*3/uL 0.7-7.4 MONO x10^3 (test code = 742-7) 0.59 10*3/uL 0-0.5 H EOS x10^3 (test code = 711-2) <0.03 0-0.4 BASO x10^3 (test code = 704-7) 0.05 10*3/uL 0-0.1 Lab Interpretation (test code = 73370-1) Abnormal [facility]
--- NOTE | 2024-03-04 00:24 | EDPHYS ---
Physician Documentation [facility] Name: Bushra Brewer Age: 24 yrs Sex: Female : 2000 Arrival Date: 03/03/2024 Time: 23:59 Bed 1 Private MD: ED Physician Carlos Farmer HPI: 03/04 00:13 This 24 yrs old Female presents to ER via Unassigned with complaints of sp4 Nausea, Headache, Abdominal Cramping, PT IS 35 WEEKS PREG. 00:16 24-year-old female -1-0-1 at 35 weeks 6 days EGA with care established at sp4 [facility] with Marisol Kinsey, MSN, CNM . Patient presents with acute pelvic pain and contractions starting at 3:40 PM 03/03/2024. Patient states she did not feel gush of water but reported some fluid leakage. . 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 - Infectious Disease History:: Denies. - Family history:: not pertinent. - Social history:: Smoking status: Patient denies any tobacco usage or history of. ROS: 00:17 Constitutional: Negative for fever, chills, and weight loss, positive for pelvic pain , sp4 positive for contractions 00:17 All other systems are negative, Exam: 00:17 Constitutional: This is a well developed, well nourished patient who is awake, alert, sp4 and in no acute distress. Head/Face: Normocephalic, atraumatic. Eyes: Pupils equal round and reactive to light, extra-ocular motions intact. Lids and lashes normal. Conjunctiva and sclera are not injected. Cornea within normal limits. Periorbital areas with no swelling, redness, or edema. ENT: Nares patent. No nasal discharge, no septal abnormalities noted. Tympanic membranes are normal and external auditory canals are clear. Oropharynx with no redness, swelling, or masses, exudates, or evidence of obstruction, uvula midline. Mucous membranes moist. Neck: Trachea midline, no thyromegaly or masses palpated, and no cervical lymphadenopathy. Supple, full range of motion without nuchal rigidity, or vertebral point tenderness. Chest/axilla: Normal chest wall appearance and motion. Nontender with no deformity. No lesions are appreciated. Cardiovascular: Regular rate and rhythm with a normal S1 and S2. No gallops, murmurs, or rubs. Normal PMI, no JVD. No pulse deficits. Respiratory: Lungs have equal breath sounds bilaterally, clear to auscultation and percussion. No rales, rhonchi or wheezes noted. No increased work of breathing, no retractions or nasal flaring. Abdomen/GI: Soft, with normal bowel sounds. No distension or tympany. No guarding or rebound. No evidence of tenderness throughout. Gravid uterus Back: No spinal tenderness. No costovertebral tenderness. Skin: Warm, dry with normal turgor. Normal color with no rashes, no lesions, and no evidence of cellulitis. MS/ Extremity: Pulses equal, no cyanosis. Neurovascular intact. Full, normal range of motion. Neuro: Awake and alert, GCS 15, oriented to person, place, time, and situation. Cranial nerves II-XII grossly intact. Motor strength 5/5 in all extremities. Sensory grossly intact. Psych: Awake, alert, with orientation to person, place and time. 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 Patient has normal external genitalia. Cervical check sp4 reveals no effacement half a centimeter dilation , no sign of amniotic fluid leak, Vital Signs: 00:16 BP 122 / 74; Pulse 104; Resp 18; Pulse Ox 100% ; vc1 00:30 BP 122 / 74; Pulse 92; Resp 17; Pulse Ox 100% on R/A; dd2 01:35 BP 124 / 78; Pulse 90; Resp 16; Temp 98.2; Pulse Ox 100% on R/A; dd2 [place] Coma Score: 00:17 Eye Response: spontaneous(4). Motor Response: obeys commands(6). Verbal Response: sp4 oriented(5). Total: 15. 01:08 Eye Response: spontaneous(4). Motor Response: obeys commands(6). Verbal Response: dd2 oriented(5). Total: 15. MDM: 00:22 Medical Screening Exam initiated sp4 00:22 Differential diagnosis: Nonspecific abd pain, gastritis, cholecystitis, labor. sp4 Data reviewed: vital signs, nurses notes, lab test result(s), radiologic studies, ultrasound. 00:51 Consideration of Admission/Observation Escalation of care including sp4 admission/observation considered. ED course: Ultrasound reveals single intrauterine in cephalic presentation, closed cervix, heart tones 147, amniotic fluid index 12.9. ED course: At this time patient is stable for transfer to [facility] for further assessment.. 01:02 ED course: We spoke with Dr. Pace who accepted patient at [facility] . 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 COMPARISON: None. FINDINGS: Limited grayscale images of the pelvis were performed. The adnexal structure were not imaged. There is a single living intrauterine in breech presentation with a FL mean measurement of 7.07 cm corresponding to an ultrasonographic gestational age of 36 weeks and 2 days. There was normal movement heart motion was detected at of 147 beats per minute. Placenta was anterior. Cervical length is 3.8 cm. LADI 12.92 cm. IMPRESSION: Single living intrauterine with an ultrasonographic gestational age of 36 weeks and 2 days. Cervix is closed. Normal placentation. Electronically signed by: Tunde Wesley MD 03/04/2024 02:26 AM RADIAL DRILL PRESS OPERATOR . 03/04 00:14 Order name: CBC with Diff; Complete Time: 02:41 sp4 03/04 00:14 Order name: CMP; Complete Time: 01: sp4 03/04 00:14 Order name: Lipase; Complete Time: 01: sp4 03/04 00:15 Order name: Abo/rh Typing; Complete Time: 02:41 sp4 03/04 01:07 Order name: Manual Differential; Complete Time: 02:41 EDMS 03/04 00:24 Order name: OB Limited EDMS 03/04 00:14 Order name: IV Saline Lock; Complete Time: 00:22 sp4 03/04 00:14 Order name: Labs collected and sent; Complete Time: 00:22 sp4 Administered Medications: 00:33 Drug: Acetaminophen PO 1000 mg PO once Route: PO; dd2 01:03 Follow up: Response: No adverse reaction dd2 00:34 Drug: Ondansetron IVP 4 mg IVP once; over 2 minutes Route: IVP; Site: right antecubital;dd2 00:49 Follow up: Response: No adverse reaction dd2 01:00 Drug: NS 0.9% IV 1000 ml IV at 1 bolus Per protocol; to be given as a bolus over 60 dd2 minutes Route: IV; Rate: 1 bolus; Site: right antecubital; 01:15 Follow up: Response: No adverse reaction dd2 01:31 Follow up: IV Status: Infusion continued upon transfer dd2 Disposition Summary: 03/04/24 00:24 Transfer Ordered Notes: Transfer Location: [facility] sp4 Reason: Higher level of care sp4 Condition: Stable sp4 Problem: new sp4 Symptoms: have improved sp4 Accepting Physician: [facility] 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 EDMS EDMS 00:24 [facility] SHOW HORSE DRIVER sp4 dd2
--- NOTE | 2024-03-04 00:24 | ER ---
Nurse's Notes [facility] Name: Bushra Brewer Age: 24 yrs Sex: Female : 2000 Arrival Date: 03/03/2024 Time: 23:59 Bed 1 Private MD: Diagnosis: labor, Pelvic Contractions Presentation: 03/04 00:16 Chief complaint: Patient states: Cramping and tightening of stomach all day. Coming vc1 about 5-10 minutes apart. Coronavirus screen: Client denies travel out of the [place] in the last 14 days. At this time, the client does not indicate any symptoms associated with coronavirus-19. Ebola Screen: Patient negative for fever greater than or equal to 101.5 degrees Fahrenheit, and additional compatible Ebola Virus Disease symptoms Patient denies exposure to infectious person. Patient denies travel to an Ebola-affected area in the 21 days before illness onset. No symptoms or risks identified at this time. Initial Sepsis Screen: Does the patient meet any 2 criteria? No. Patient's initial sepsis screen is negative. Does the patient have a suspected source of infection? No. Patient's initial sepsis screen is negative. Risk Assessment: Do you want to hurt yourself or someone else? Patient reports no desire to harm self or others. Onset of symptoms was March 04, 2024. 00:16 Method Of Arrival: Ambulatory vc1 00:16 Acuity: RACHELLE 2 vc1 Triage Assessment: 01:34 GI: Reports. 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 - Infectious Disease History:: Denies. - Family history:: not pertinent. - Social history:: Smoking status: Patient denies any tobacco usage or history of. Screenin:24 [facility] ED Fall Risk Assessment (Adult) History of falling in the last 3 months, vc1 including since admission No falls in past 3 months (0 pts) Confusion or Disorientation No (0 pts) Intoxicated or Sedated No (0 pts) Impaired Gait No (0 pts) Mobility Assist Device Used No (0 pt) Altered Elimination No (0 pt) Score/Fall Risk Level 0 - 2 = Low Risk Oriented to surroundings, Maintained a safe environment, Educated pt \T\ family on fall prevention, incl call for assistance when getting out of bed. Abuse screen: Denies threats or abuse. Nutritional screening: No deficits noted. Tuberculosis screening: No symptoms or risk factors identified. Assessment: 00:30 General: Appears uncomfortable, Behavior is calm, cooperative, appropriate for age. dd2 Pain: Complains of pain in suprapubic area, right lower quadrant and left lower quadrant Pain does not radiate. Pain currently is 9 out of 10 on a pain scale. Is intermittent, lasting a few minutes. Neuro: No deficits noted. Lynn Agitation-Sedation Scale (RASS): 0 - Alert and Calm Level of Consciousness is awake, alert, obeys commands, Oriented to person, place, time, situation, Appropriate for age. Cardiovascular: No deficits noted. Respiratory: No deficits noted. Airway is patent Respiratory effort is even, unlabored, Respiratory pattern is regular, symmetrical. GI: Abdomen is round Abd is non tender X 4 quads. : Parent/caregiver report the patient having contractions. EENT: No deficits noted. No signs and/or symptoms were reported regarding the EENT system. Derm: No deficits noted. No signs and/or symptoms reported regarding the dermatologic system. Musculoskeletal: No deficits noted. No signs and/or symptoms reported regarding the musculoskeletal system. Circulation, motion, and sensation intact. Range of motion: intact in all extremities. 01:18 Reassessment: Report called to JARROD Moyerpiece work checker [facility]. dd2 Vital Signs: 00:16 BP 122 / 74; Pulse 104; Resp 18; Pulse Ox 100% ; vc1 00:30 BP 122 / 74; Pulse 92; Resp 17; Pulse Ox 100% on R/A; dd2 01:35 BP 124 / 78; Pulse 90; Resp 16; Temp 98.2; Pulse Ox 100% on R/A; dd2 [place] Coma Score: 00:17 Eye Response: spontaneous(4). Motor Response: obeys commands(6). Verbal Response: sp4 oriented(5). Total: 15. 01:08 Eye Response: spontaneous(4). Motor Response: obeys commands(6). Verbal Response: dd2 oriented(5). Total: 15. ED Course: 00:03 Patient arrived in ED. gm2 00:13 Potepalov, Carlos, MD is Attending Physician. sp4 00:21 Inserted saline lock: 20 gauge in right antecubital area, using aseptic technique. lg3 Blood collected. Flushed with 10 mL NS. 00:22 CBC with Diff Sent. lg3 00:22 CMP Sent. lg3 00:22 Lipase Sent. lg3 00:24 Triage completed. vc1 00:24 Arm band placed on right wrist. vc1 00:30 Patient has correct armband on for positive identification. Bed in low position. Call dd2 light in reach. Side rails up X2. Client placed on continuous cardiac and pulse oximetry monitoring. NIBP monitoring applied. Door closed. Noise minimized. Warm blanket given. Pillow given. Verbal reassurance given. 00:33 LIUDMILA BETH, RN is Primary Nurse. dd2 00:51 OB Limited In Process Unspecified. EDMS 01:08 Assist provider with pelvic exam: Performed by Carlos Farmer MD. Patient maintains dd2 SpO2 saturation greater than 95% on room air. 01:31 Patient transferred, IV remains in place. dd2 01:33 Provided Education on: TRANSFER INFORMATION. dd2 04:07 initiated transfer with Ashley [facility] [place] \T\ 0052. Pt was accepted to [facility] L\T\D number for nurse to nurse report [phone]. Accept[address] Sanjeev Merritt, admin approval given by Ashley Godinez \T\ [id number]. [facility] to transfer pt. Administered Medications: 00:33 Drug: Acetaminophen PO 1000 mg PO once Route: PO; dd2 01:03 Follow up: Response: No adverse reaction dd2 00:34 Drug: Ondansetron IVP 4 mg IVP once; over 2 minutes Route: IVP; Site: right antecubital;dd2 00:49 Follow up: Response: No adverse reaction dd2 01:00 Drug: NS 0.9% IV 1000 ml IV at 1 bolus Per protocol; to be given as a bolus over 60 dd2 minutes Route: IV; Rate: 1 bolus; Site: right antecubital; 01:15 Follow up: Response: No adverse reaction dd2 01:31 Follow up: IV Status: Infusion continued upon transfer dd2 Medication: 00:30 VIS not applicable for this client. dd2 Outcome: 00:24 ER care complete, transfer ordered by spChantell 01:31 Transferred by ground EMS to [facility], Transfer form dd2 completed. :31 Condition: stable 01:31 Instructed on the need for transfer, Demonstrated understanding of instructions, 01:34 Patient left the ED. dd2 Signatures: Dispatcher [employer] Madeline Carbajal RN RN lg3 Mary Ann Schultz RN RN vc1 Carlos Farmer MD MD sp4 [facility] Sayra Mishra [facility] LIUDMILA BETH RN RN dd2 Corrections: (The following items were deleted from the chart) 00:18 00:17 PMHx: Heart Murmur; sp4 sp4 00:18 00:17 PMHx: Anemia; sp4 sp4 00:18 00:17 PMHx: blood transfusion; sp4 sp4 04:10 04:07 initiated transfer with [facility]
[2024-03-04] MEDS ORDERED: ACETAMINOPHEN 500 MG TAB ONE (00:25)
[2024-03-04] MEDS ORDERED: ONDANSETRON 4 MG/2 ML VIAL ONE (00:25)
[2024-03-04] MEDS ORDERED: NA CHLORIDE 0.9% 1,000 ML ONE (00:25)
[2024-03-04 00:46] LABS: Absolute Monocytes 0.7 K/uL (0.1-1.3); Hemoglobin 7.3 g/dL (12.0-15.0)
[2024-03-04 00:51] LABS: Absolute Lymphocytes (CBC) 1.6 K/uL (0.7-4.9); Absolute Neutrophil 6.4 K/uL (1.8-8.0); Basophils % 0.3 % (0-1.3); Eosinophils % 0.5 % (0-4.4); Hematocrit 25.1 % (36.0-45.0); Lymphocytes % 18.3 % (15.3-44.8); MCH 17.7 pg (27.0-35.0); MCHC 29.2 g/dL (32.0-36.0); MCV 60.5 fL (80-100); MPV 8.8 fL (7.6-11.3); Monocytes % 7.6 % (3.3-12.3); Neutrophils % 73.3 % (41.7-73.7); Nucleated RBC Absolute Count 0.1 (0-0); Nucleated Red Blood Cells % 1.3 % (0-0); Platelets 397 thou/uL (152-406); RBC Red Blood Cell Count 4.15 M/uL (3.86-4.86); Red Cell Distribution Width 22.1 % (12.1-15.2)
[2024-03-04 00:56] LABS: AST/SGOT 15 U/L (15-37); Albumin 2.6 g/dL (3.4-5.0); Albumin/Globulin Ratio 0.6 (1.1-1.8); Alkaline Phosphatase 109 U/L (45-117); Anion Gap 10.9 mEq/L (5.0-15.0); BUN Blood Urea Nitrogen 5 mg/dL (7-18); Bicarbonate 21 mEq/L (21-32); Bilirubin Total 0.5 mg/dL (0.2-1.0); Globulin 4.7 g/dL (2.3-3.5); Glomerular Filtration Rate 131 ml/min (=/>90); Glucose Level 99 mg/dL (74-106); Lipase 69 U/L (13-75); Potassium 3.9 mEq/L (3.5-5.1); Protein, Total 7.3 g/dL (6.4-8.2); Sodium Level 136 mEq/L (136-145)
[2024-03-04 01:02] LABS: ALT/SGPT < 14 U/L (13-56)
[2024-03-04 02:13] LABS: Band Neutrophils 2 % (0-1); Differential Total Cells Count 100; Eosinophils 1 % (0-3); Lymphocytes 19 % (15-42); Monocytes 3 % (0-10); Nucleated Red Blood Cells 4 /100WBC; Reactive Lymphocytes 2 %; Segmented Neutrophils 73 % (40-80)
[2024-03-04 02:14] LABS: Anisocytosis 2+; Blood Morphology Comment NOTED (NOT SEEN); Hypochromasia 3+; Microcytosis 2+; Platelet Estimate ADEQ
--- NOTE | 2024-03-04 06:43 | RAD REPORT ---
EXAM DESCRIPTION: US LIMITED 03/04/2024 2:17 AM PHOTOGRAPHIC EDITOR CLINICAL HISTORY: 24 years, Female, Pelvic contractions. COMPARISON: None. FINDINGS: Limited grayscale images of the pelvis were performed. The adnexal structure were not imaged. There is a single living intrauterine in breech presentation with a FL mean measurement of 7.07 cm corresponding to an ultrasonographic gestational age of 36 weeks and 2 days. There was normal movement heart motion was detected at of 147 beats per minute. Placenta was anterior. Cervical length is 3.8 cm. LADI 12.92 cm. IMPRESSION: Single living intrauterine with an ultrasonographic gestational age of 36 weeks and 2 days. Cervix is closed. Normal placentation. Electronically signed by: Tunde Wesley MD 03/04/2024 02:26 AM PHOTOGRAPHIC EDITOR Due to temporary technical issues with the PACS/Hingi reporting system, reports are being thai d by the in-house radiologist without review as a courtesy to ensure prompt reporting the interpreting radiologist is fully responsible for the content of the report. Transcribed Date/Time: 03/04/2024 6:42 AM
[2024-03-04 09:42] VITALS: BP 122/74; O2SAT 100
== END 2024-03-04 01:34 | disposition short-term general hospital (02) ==
LOC: ER 23:59
DX: O60.03 Preterm labor without delivery, third trimester (principal); Z3A.36 36 weeks gestation of pregnancy
CPT/HCPCS: 96361; 85025; 36415; 86900; 86901; 83690; 80053; 76815; 96374; 99285; J2405; J7030